=== PATIENT | male | born 1970 | race Caucasian/White ===

== ENCOUNTER → 2023-08-01 15:48 | Outpatient (REF) | payer BC, SELFPAY | LOC: ANHLAB 15:48 | PROVIDERS: PCP Family Medicine; Visit Provider Plastic Surgery | DX: D48.5 Neoplasm of uncertain behavior of skin (principal) | CPT/HCPCS: 88305; 88342 ==

== ENCOUNTER 2024-10-01 07:35 | Observation (INO) | payer BC, OTHER, SELFPAY ==
[2024-10-01] VITALS (31 sets, daily range): BP systolic 88–125; BP diastolic 50–79; PULSE 57–99; RESP 12–29; TEMP 35.8–38; O2SAT 92–100; BMI 34.0
--- NOTE | ~2024-10-01 | CT_ITS ---
EXAMINATION: CT abdomen pelvis w con DATE: 10/01/2024 11:01 INDICATION: Right lower quadrant pain TECHNIQUE: Computed tomography (CT) of the abdomen and pelvis was performed with 100 cc Omnipaque 350 intravenous contrast. The dose-length product was 983.64 mGy-cm. Automated exposure control and iter ative reconstruction technique were employed. COMPARISON: None. FINDINGS: There is dependent atelectasis. Heart size normal. No significant pleural or pericardial ef fusion. Fatty infiltration of the liver. The spleen, pancreas, adrenal glands and kidneys are unremar kable. There is acute uncomplicated appendicitis. Appendix measures approximately 1.8 cm transversely at the tip. There is moderate surrounding phlegmonous change. No evidence for abscess. Nonobstructiv e bowel gas pattern. No free air or free fluid. No acute osseous abnormality. Moderate lower thoracic and lumbar spondylosis. IMPRESSION: 1. Acute uncomplicated appendicitis. Reviewed, dictated and finalized at location A.
--- OUTSIDE RECORDS SUMMARY | 2024-10-01 07:39 | XMS_ITS | Encounter Summary ---
Author Name [facility] [facility] [place] Address [address] [place] [address] Care Team Providers Care Employment Case Manager Name Role Phone BRISA ANN Primary Care Provider [facility] Insurance Providers: All historical and current Section Date Range: From patient's date of to the date document was created. This section includes the names of all active insurance providers for the patient. Insurance Provider Type of Coverage Plan Name Start of Policy Coverage End of Policy Coverage Group Number Member ID Insurance Provider's Telephone Number Policy Ferris's Name Patient's Relationship to Policy Ferris [place] PREFERRED PROVIDER ORGANIZAT [place] ([place]O) STATE [facility] Aug 29, 2023 [id number] [phone] REGINALD PEACE PATIENT ANTHEM [place] PREFERRED PROVIDER ORGANIZAT ION (PPO) STATE OF [facility] Aug 29, 2023 [id number] [phone] REGINALD PEACE PATIENT ANTHE[place] PREFERRED PROVIDER ORGANIZAT ION (PPO) STATE OF [facility] Aug 29, 2023 [id number] [phone] REGINALD PEACE PATIENT [place] PREFERRED PROVIDER ORGANIZAT ION (PPO) [facility] Aug 29, 2023 [id number] [phone] REGINALD PEACE PATIENT [place] ([id number])RX PRESCRIPT ION STATE OF [place] Aug 29, 2023 [id number] [phone] REGINALD PEACE PATIENT Selected Encounter This section includes the information on record at [place] for the Encounter. Date/Time Encounter Type Encounter Description Reason Provider Source Jan 18, 2024 03:30 PM OFFICE O/P EST MOD 30 MIN PRIMARY CARE/MEDICINE ICD-10-CM F51.5 Nightmare disorder BRISA ANN [facility] Encounter Template Text not used by [place] Assessments - Encounter Diagnoses This section includes the primary and secondary diagnoses documented for the Encounter. Date/Time Primary/Secondary Diagnosis Diagnosis Name Provider Source Feb 01, 2024 12:28 PM PRIMARY Nightmare disorder [facility] Feb 01, 2024 12:28 PM SECONDARY Other male erectile dysfunction [facility] Feb 01, 2024 12:28 PM SECONDARY Rash and other nonspecific skin eruption [facility] Plan of Treatment: Future Appointments (+ 6 months) and Future Tests (+/- 45 days) The Plan of Treatment section includes future care activities for the patient from all [place] treatmentfacilities. This section includes future appointments and future orders which are active, pending or scheduled. Future Appointments This section includes appointments that were scheduled to occur 6 months from the date of the Encounter, up to a maximum of 20 appointments. The data comes from all [place] treatment facilities. Appointment Date/Time Appointment Type Appointme nt Facility Name Feb 08, 2024 11:00 AM AMBULATORY - PSYCHIATRY [facility] Mar 15, 2024 11:00 AM AMBULATORY - PS[facility]CH[facility]ATRY [facility] Apr 04, 2024 10:30 AM AMBULATORY - MEDICINE [facility] May 01, 2024 02:00 PM AMBULATORY - PSYCHIATRY [facility] May 10, 2024 02:00 PM AMBULATORY - PSYCHIATRY [facility] May 30, 2024 08:00 AM AMBULATORY - PSYCHIATRY [facility] Jun 11, 2024 10:00 AM AMBULATORY - MEDICINE [facility] Jun 18, 2024 09:00 AM AMBULATORY - REHAB MEDICIN E [facility] Vital Signs: All taken on the encounter date This section contains inpatient and outpatient Vital Signs collected on the date of the Encounter. Date/Time Temperature Pulse Blood Pressure Respiratory Rate SP02 Pain Height Weight Body Mass Index Source Jan 18, 2024 03:32 PM 98.9 88 128/76 20 95 0 70 252 36 [facility] Social History: Smoking Status (Most current) and Tobacco Use (All prior to encounter date) This section includes the most current, and the historical, smoking and tobacco- related health factors from the [place] facility where the Encounter took place. Current Smoking Status This section includes the most current smoking, or tobacco-related health factor, from the [place] facility where the Encounter took place. Date/Time Current Smoking Status Comment Facil ity Aug 23, 2023 01:00 PM VA-TOBACCO USER EVERY DAY [facility] Tobacco Use History This section includes a history of the smoking, or tobacco-related health factors, that were collected on or before the date of the Encounter. The data comes from the [place] facility where the Encounter took place. Date/Time Smoking Status/Tobacco Use Comment F acility Aug 23, 2023 01:00 PM VA-TOBACCO USE 30 YEARS OR MORE [facility] Aug 23, 2023 01:00 PM VA-TOBACCO USE ADVICE [facility] Aug 23, 2023 01:00 PM VA-TOBACCO USE SCHOOL PSYCHOLOGY SPECIALIST NO [facility] Aug 23, 2023 01:00 PM VA-TOBACCO USE MED NO [facility] Aug 23, 2023 01:00 PM VA-TOBACCO USER EVERY DAY [facility] Encounter Notes: All associated encounter notes This section contains the clinical notes associated to the Encounter. Date/Time Encounter Note(s) Provider Source Jan 18, 2024 03:41 PM PRIMARY CARE NOTE: LOCAL TITLE: PRIMARY CARE PROVIDER ESTABLISHED VISIT ST STANDARD TITLE: PRIMARY CARE NOTE DATE OF NOTE: JAN 18, 2024@15:41 ENTRY DATE: JAN 18, 2024@15:41:34 AUTHOR: BRISA ANN EXP COSIGNER: URGENCY: STATUS: COMPLETED ESTABLISHED PATIENT [id number]: HPI: Follow up. Patient would like something for erectile dysfunction. Has been on viagra and cialis in the past, thinks cialis worked better. Recently met a woman he may want to become sexually active with. Denies any CP/SOB with exertion. Denies any history of heart problems. He has had two episodes in the last month where he scratches his right thigh while he sleeps. He will wake up and there are scratches on his thigh and blood under the fingernails on his right hand. First episode 1 month ago and then again 2 weeks ago. It is healing ok. He denies any rash/itching/lesion in this area. Both times it happened he had a nightmare. Has about 3-4 nightmares a month, they are usually of his being trapped (either tied down or being forced to go back to [place] and dying). He has never tried medication for it. He has gotten his CPAP and was also put on iron supplement by sleep doctor for RLS. SOURCE OF HISTORY: Patient PAST MEDICAL HISTORY: No active Problems to list. FAMILY HISTORY: Mom of ALS in 1994. Maternal cousin also had ALS. Dad - alive and healthy. Brother - tonsil cancer. SOCIAL HISTORY: NICOTINE/TOBACCO: Smokes 1/2 ppd. Started at age 16. Not ready to quit at the moment. ILLICIT DRUGS: denies ALCOHOL: drinks 2 times/week. Usually 7-8 beers. SCREENINGS: Colonoscopy - tells me normal 5 years ago. He will send records. Thinks it was done at [facility] in [place], [place]. HEP C - will check with labs HIV - will check with labs PSA - will check with labs Low dose CT - will discuss at next visit AAA screening - will start at 63 VACCINATIONS Tetanus - Tells me he is UTD Flu - pt declines COVID - pt declines Pneumonia - with smoking will give one today Shingles - he wants to check records first ALLERGIES: Patient has answered NKA ALLERGY REVIEW: Allergy list reviewed and remains current. MEDICATIONS: Active and Recently Outpatient Medications (excluding Supplies): Gabapentin 300 mg daily MEDICATION RECONCILIATION: I have reviewed the patient's medication list with the patient and/or his/her care-quill reamer. Handwritten corrections, additions and/or deletions were made to the list. Corrected Outpatient Medication List was provided to the patient/caregiver. REVIEW OF SYSTEMS: negative except as mentioned in HPI PHYSICAL EXAMINATION: General appearance: VITALS (most recent, as listed in the electronic record): Temperature: 98.9 F [37.2 C] (01/18/2024 15:32) BP: 128/76 (01/18/2024 15:32) Pulse: 88 (01/18/2024 15:32) Resp: 20 (01/18/2024 15:32) PulsOx: 95% (01/18/2024 15:32) Pain: 0 (01/18/2024 15:32) Weight: Measurement DT WEIGHT LB(KG)[BMI] 01/18/2024 15:32 252(114.31)[36*] 08/23/2023 12:55 241(109.32)[35*] Ears, Nose, Mouth, Throat: Normal. Eye: Normal sclera Normal PERRLA Cardiovascular: S1 S2 Nl. Respiratory: Clear ABD/GI: Normal. Extremities: Right third finger with slight swelling along medial part of cuticle. No surrounding erythema. No discharge. Normal motion of finger. No foreign bodies palpated. Left fifth digit with normal flexion, but can't straighten completely in extension. Skin: Healing incision right upper shoulder without any signs of infection. ASSESSMENT/PLAN: #Nightmares - will try prazosin for nightmares. Discsused not to take with viagra due to risk of hypotension. He will let me know in a few weeks how this is working for him. #Erectile dysfunction - will try viagra prn. If maximum doses of this don't work we can try a PA for cialis. #Scratching - This sounds like it is related to nightmares. Will have him try wearing longer shorts to protect this area. Could consider wearing gloves as well. RETURN TO CLINIC: prn SUMMARY STATEMENT: Plan of care has been discussed with including expected therapeutic benefits and potential side effects of prescribed medication and treatments. Whippany verbalizes understanding and is in agreement with the plan of care. Patient was instructed to keep all scheduled appointments and contact head tennis coach for any additional problems. /jordana/ BRISA ANN DO STAFF PHYSICIAN Signed: 01/18/2024 16:24 BRISA ANN [facility] Jan 18, 2024 03:35 PM NURSING NOTE: LOCAL TITLE: V15 PACT FACE TO FACE NOTE STL STANDARD TITLE: NURSING NOTE DATE OF NOTE: JAN 18, 2024@15:35 ENTRY DATE: JAN 18, 2024@15:35:32 AUTHOR: JACKY VALENCIA EXP COSIGNER: URGENCY: STATUS: COMPLETED Provider Visit: Patient Identifiers : Full Name Date of Reason for visit: Established Follow-Up Mode of Arrival: Ambulatory Allergy Review: Patient has answered NKA Allergy list reviewed and remains current. Recent Vital Signs: Temperature: 98.9 F [37.2 C] (01/18/2024 15:32) Pulse: 88 (01/18/2024 15:32) Respiration: 20 (01/18/2024 15:32) B/P: 128/76 (01/18/2024 15:32) Pain: 0 (01/18/2024 15:32) Wt: 252 lb [114.31 kg] (01/18/2024 15:32) Ht: 70 in [177.8 cm] (01/18/2024 15:32) BMI: 36.2 POX: 95% (01/18/2024 15:32) Blood sugar glucometer reading: Would you like to discuss any personal problem, family problem, alcohol use, drug use, or a mental or emotional illness? No [facility] ([facility]), please select appointment type: Face to face: Yes- Done Contact provided Primary Care phone number and encouraged to call if any questions or concerns. Review that after hours nurse line [phone] and emergency room are available 20/09 for patient use. Contact verbalized good understanding. /jordana/ JACKY VALENCIA LPN LICENSED PRACTICAL NURSE Signed: 01/18/2024 15:36 JACKY VALENCIA [facility]
--- OUTSIDE RECORDS SUMMARY | 2024-10-01 07:39 | XMS_ITS | Encounter Summary ---
Author Name [facility] Address [address] [place] [address] Care Team Providers Care Crayon Sorting Machine Feeder Name Role Phone BRISA ANN [facility] Insurance Providers: All historical and current [...] IN PREFERRED PROVIDER ORGANIZAT ION (PPO) [facility] Aug 29, 2023 [id number] [phone] REGINALD GOODSON PATIENT ANTHEM [employer] [place] PREFERRED PROVIDER ORGANIZAT ION (PPO) [facility] [place] Aug 29, 2023 [id number] [phone] REGINALD GOODSON PATIENT [place] [employer] [place] PREFERRED PROVIDER ORGANIZAT ION (PPO) [facility] [place] Aug 29, 2023 [id number] [phone] REGINALD GOODSON PATIENT [employer] [place] PREFERRED PROVIDER ORGANIZAT ION (PPO) [facility] Aug 29, 2023 [id number] [phone] REGINALD GOODSON PATIENT [place] ([id number])RX PRESCRIPT ION [facility] Aug 29, 2023 [id number] [phone] REGINALD GOODSON PATIENT Selected Encounter This section includes the information on record at [place] for the Encounter. Date/Time Encounter Type Encounter Description Reason Provider Source Sep 12, 2024 10:00 AM OFFICE O/P EST MOD 30 MIN [facility] - IND ICD-10-CM F43.12 Post-traumatic stress disorder, chronic ZENA SOUZA [facility] Encounter Template Text not used by [place] Assessments - Encounter Diagnoses This section includes the primary and secondary diagnoses documented for the Encounter. Date/Time Primary/Secondary Diagnosis Diagnosis Name Provider Source Sep 12, 2024 10:25 AM PRIMARY Post-traumatic stress disorder, chronic ZENA SOUZA [facility] Plan of Treatment: Future Appointments (+ 6 months) and Future Tests (+/- 45 days) The Plan of Treatment section includes future care activities for the patient from all [place] treatmentfacilities. This section includes future appointments and future orders which are active, pending or scheduled. Future Appointments This section includes appointments that were scheduled to occur 6 months from the date of the Encounter, up to a maximum of 20 appointments. The data comes from all [place] treatment facilities. Appointment Date/Time Appointment Type Appointme nt Facility Name Oct 02, 2024 11:00 AM AMBULATORY - MEDICINE [facility] Oct 30, 2024 08:30 AM AMBUL[facility]ORY - [facility]RY [facility] Social History: Smoking Status (Most current) and Tobacco Use (All prior to encounter date) This section includes the most current, and the historical, smoking and tobacco- related health factors from the [facility] facility where the Encounter took place. Current Smoking Status This section includes the most current smoking, or tobacco-related health factor, from the [place] facility where the Encounter took place. Date/Time Current Smoking Status Comment Facil [facility] Aug 23, 2023 01:00 PM VA-TOBACCO USER EVERY DAY [facility] Tobacco Use History This section includes a history of the smoking, or tobacco-related health factors, that were collected on or before the date of the Encounter. The data comes from the [place] facility where the Encounter took place. Date/Time Smoking Status/Tobacco Use Comment F acility Aug 23, 2023 01:00 PM VA-TOBACCO USE 30 YEARS OR MORE [facility] Aug 23, 2023 01:00 PM VA-TOBACCO USE ADVICE [facility] Aug 23, 2023 01:00 PM VA-TOBACCO USE CONSUMER LOAN MANAGER NO [facility] Aug 23, 2023 01:00 PM VA-TOBACCO USE MED NO [facility] Aug 23, 2023 01:00 PM VA-TOBACCO USER EVERY DAY [facility] Encounter Notes: All associated encounter notes This section contains the clinical notes associated to the Encounter. Date/Time Encounter Note(s) Provider Source Sep 12, 2024 09:58 AM PSYCHIATRY NOTE: LOCAL TITLE: PSYCHIATRY [facility] STANDARD TITLE: PSYCHIATRY NOTE DATE OF NOTE: SEP 12, 2024@09:58 ENTRY DATE: SEP 12, 2024@09:58:53 AUTHOR: ZENA SOUZA COSIGNER: URGENCY: STATUS: COMPLETED PSYCHIATRY PROGRESS NOTE SEP 12, 2024 PITER GOODSON is a 54 year old WHITE MALE presenting for psychiatric follow up appointment. Previous psychiatric notes, medical notes, and medication history reviewed. HPI: PITER GOODSON was last seen on 05/30/24 at which time we adjusted/titrated Wellbutrin 75 mg daily to Wellbutrin XL 150 mg daily for PTSD related sx, and titrated Prazosin 2 mg QHS PRN for nightmares. Ashley presents alone today, reports mood as Ok. He reports good efficacy with Prazosin for nightmares, though notes only modest efficacy with Wellbutrin; amenable to further titration of his dose. Ashley otherwise denies thoughts of self-harm, suicidal ideation, intent/plan to hurt themselves, thoughts of harming others, homicidal ideation or access to poisons or medications. Vet denies access to firearms at this time. Vet denies any recent inpatient psychiatric hospitalizations, suicide attempts, self-mutilation, auditory or visual hallucinations. Vet denies any excessive alcohol consumption, illicit drug use, or smoking. ALLERGIES: Patient has answered NKA MEDICATIONS: Active Outpatient Medications (including Supplies): Active Outpatient Medications Status 1) FLUTICASONE PROP 50MCG 120D NASAL INHL INSTILL 2 SPRAYS IN ACTIVE NOSTRIL(S) ONCE A DAY (MUST BE USED DIRECTED FOR MINIMUM OF 21 DAYS TO PROVIDE ADEQUATE BENEFITS) Indication: FOR RHINITIS 2) GABAPENTIN 300MG CAP TAKE ONE CAPSULE BY MOUTH ONCE A DAY ACTIVE Indication: FOR NERVE PAIN 3) PRAZOSIN HCL 2MG CAP TAKE ONE CAPSULE BY MOUTH AT BEDTIME ACTIVE NEEDED MAY CAUSE DIZZINESS OR DROWSINESS. Indication: FOR NIGHTMARES 4) SILDENAFIL CITRATE 100MG TAB TAKE ONE-HALF TABLET BY MOUTH ACTIVE (S) ONE HOUR PRIOR TO SEXUAL ACTIVITY NEEDED - LIMIT 6 DOSES PER 30 DAYS Indication: FOR ERECTILE DYSFUNCTION No medications found. Discussed, reviewed, and updated current medication list with . 1) Exposure to potentially hazardous substance 2) Sleep apnea 3) Allergic rhinitis 4) Tinnitus 5) Hyperlipidemia 6) Nightmares 7) Tobacco use 8) Restless legs 9) Depression 10) Chronic post-traumatic stress disorder PHYSICAL EXAM: Review of systems: Negative except where noted above. VITAL SIGNS: Height: 70 in [177.8 cm] (01/18/2024 15:32) Weight: 249.6 lb [113.22 kg] (04/04/2024 10:20) BMI: 35.9 Temperature: 98.4 F [36.9 C] (04/04/2024 10:20) Blood Pressure: 126/78 (04/04/2024 10:20) Pulse: 62 (04/04/2024 10:20) Respirations: 18 (04/04/2024 10:20) Gen: no acute distress Resp: Normal Effort Extremities: No gross abnormalities Neuro: Normal Gait and station Skin: No obvious rashes or defects MENTAL STATUS EXAM: Appearance: White male, well kempt Behavior towards examiner: cooperative Eye contact: good Speech: normal in tone, volume, rate and prosody Psychomotor: no psychomotor agitation or retardation Mood: ok Affect: euthymic, congruent, and appropriate Thought Process: logical, linear, goal-directed Thought Content: denies suicidal or homicidal ideations, no clear delusions elicited or endorsed Perception: denies auditory or visual hallucinations, not seen RTIS Cognition: alert and oriented x 3 Fund of knowledge: average Insight: good Judgement: good LAB RESULTS: Complete Blood Count WBC: 6.4 10*3/uL (08/23/23 14:26) RBC: 4.68 10*6/uL (08/23/23 14:26) HGB: HGB 15.3 g/dL 08/23/2023 14:26 HCT: 44.4 % (08/23/23 14:26) PLT: PLT 219 10*3/uL 08/23/2023 14:26 Sed Rate ESR: No SED RAT (STL-PB) data found Coagulation parameters PT: ____ INR: ____ PTT: No PTT EO data found Comprehensive Metabolic Panel SODIUM 140 mEq/L 08/23/2023 14:26 POTASSIUM 4.1 mEq/L 08/23/2023 14:26 CHLORIDE 103 mEq/L 08/23/2023 14:26 UREA NITROGEN 9.1 mg/dL 08/23/2023 14:26 CREATININE 1.09 mg/dL 08/23/2023 14:26 CALCIUM 9.3 mg/dL 08/23/2023 14:26 PROTEIN 7.6 g/dL 08/23/2023 14:26 ALBUMIN 4.4 g/dL 08/23/2023 14:26 ALKALINE PHOSPHATASE 97 U/L 08/23/2023 14:26 ALT/SGPT 29 U/L 08/23/2023 14:26 AST/SGOT 33 U/L 08/23/2023 14:26 TOTAL BILIRUBIN 0.7 mg/dL 08/23/2023 14:26 CARBON DIOXIDE 25 mEq/L 08/23/2023 14:26 GLUCOSE 94 mg/dL 08/23/2023 14:26 EGFR (CKD-EPI 2020) 80.15 08/23/2023 14:26 Lipid Panel TRIGLYCERIDE 99 mg/dL 08/23/2023 14:26 CHOLESTEROL 220 H mg/dL 08/23/2023 14:26 HDL(New) 71 mg/dL 08/23/2023 14:26 CALCULATED LDL 129 mg/dL 08/23/2023 14:26 Accuchecks (last 6) No GLUCOSE,BLOOD-poct (STL) data found Other pertinent labs HgbA1c: HGA1C 5.6 % 08/23/2023 14:26 TSH: TSH 1.216 uIU/mL 08/23/2023 14:26 B12: No B12 EO data found MMA: Folate: No FOLATE (STL-MA);FOLATE (PB);FOLATE (DC 12-05);FOLATE (DC 12/05) data found Vitamin D:No VITAMIN D EO data found Ammonia: CPK: RF: No data available for: RHEUMATOID FACTOR (STL) RADAMES:0 RPR: ____ HIV: No HIV Antibody (STL);HIV COMBO (STL-MA) data found HCV: HEP C Ab HCV Ab (STL) Nonreactive S/CO 08/23/2023 14:26 Dilantin: ____ Tegretol: No CARBAMAZEPINE EO data found Valproate: Urinalysis No URINALYSIS EO data found Urine Drug Screen No data available DSM V DIAGNOSIS: CPTSD ASSESSMENT: Mr. Goodson is a 53 y/o White male, domiciled, employed, with a past psychiatic history of CPTSD. On evaluation today, the presents with signs and symptoms consistent with the CPTSD as per DSM-V criteria. Vet reports good efficacy with Prazosin for nightmares, though notes only modest efficacy with Wellbutrin; amenable to further titration of his dose. INTERVENTIONS: 1. CPTSD - Titrate Wellbutrin XL 150 mg daily to 300 mg daily for PTSD related sx - Continue Prazosin 2 mg QHS PRN for nightmares - Advised Vet to continue f/u with [facility] for therapy related to his PTSD RISK ASSESSMENT: The Vet continues to be at an increased risk of suicide overall when compared to the general population due to risk factors of psychiatric diagnosis, psychosocial stressors, and access to firearms. However at this time they are at a low acute and chronic suicide risk due to protective factors such as forward, goal orientated thinking, the gun being locked away, denial of suicidal or homicidal ideation, stabilization on medicaitons and family support. At this time the Vet is not at an acute, imminent risk of harm to themselves or others that would require inpatient hospitalization. Discussed R/A/B/SE of current medications as well as not medicating, to which the Vet voiced undertanding of the current plan and consented to the treatment as outlined. INFORMED CONSENT: The diagnosis, rationale for proposed treatment, and treatment plan was discussed with the patient, who was able to express understanding of the nature of the disease, the recommended treatment, the risks and benefits, as well as the risks and benefits of alternative treatments, including no treatment. The patient was able to express appreciation of the need for treatment, and would like to proceed. The patient was able to weigh options and describe pros and cons of each option, demonstrating reasoning. Finally, the patient was able to express a choice and agrees to the treatment plan. TIME SPENT: 30 min RTC: in 4 weeks INSTRUCTIONS GIVEN TO PATIENT/FAMILY: Report medication side effects promptly. No alcohol/illicit drug use with medication. Exercise caution with driving/use of machinery. Monitor for sedation with use of the medication and if needed avoid use in situations where decreased level of alertness could potentially be dangerous. If symptoms get worse, call clinic or Emergency Room as appropriate. Provided orientation to the clinic and ways to access crisis/emergency care. EDUCATION: Educated to be compliant and encouraged to take the medication (s) daily; to continue to take even if the feels better; and to not stop taking medications without checking with the healthcare provider; and to call us when questions arise about medications. The was counseled to keep follow-up appointments. We discussed alternatives to treatment, including no treatment, as well as risks, benefits, side effects, including more serious/life-threatening side effects such as SJS/TENS (that this can be life-threatening and/or permanently disfiguring), QTc related arrhythmias, and to present to ER if s/s of these more serious side effects occur. The voiced understanding and consented to treatment as outlined. We discussed crisis resources in detail. The was informed to call [phone] for ROUTINE questions/concerns, to call [phone]) and press 1 for URGENT or EMERGENT situations or to call 911 or present to the nearest ER. Also, the the was advised that the [facility] ER is available to the pt. on a 20/09 basis if needed. /jordana/ Zena Souza MD Staff Psychiatrist [facility] [place] Signed: 09/12/2024 10:25 ZENA SOUZA [facility]
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
--- OUTSIDE RECORDS SUMMARY | 2024-10-01 07:39 | XMS_ITS | Encounter Summary ---
Author Name [facility] [place] [facility] [place] [facility] [place] [facility] [place] Address [address] [place] [address] Care Team Providers Care Wastewater Supervisor Name Role Phone BRISA ANN [facility] Insurance Providers: All historical and [...] IN PREFERRED PROVIDER ORGANIZAT ION (PPO) [facility] Aug 29, 2023 [id number] [phone] REGINALD GOODSON PATIENT AN[place] [employer] [place] PREFERRED PROVIDER ORGANIZAT ION (PPO) [facility] Aug 29, 2023 [id number] [phone] REGINALD GOODSON PATIENT [place] [employer] [place] PREFERRED PROVIDER ORGANIZAT ION (PPO) [facility] Aug 29, 2023 [id number] [phone] REGINALD GOODSON PATIENT [employer] [place] PREFERRED PROVIDER ORGANIZAT ION (PPO) STATE [facility] Aug 29, 2023 [id number] [phone] REGINALD GOODSON PATIENT [place] ([id number])RX PRESCRIPT ION [facility] Aug 29, 2023 [id number] [phone] REGINALD GOODSON PATIENT Selected Encounter This section includes the information on record at [place] for the Encounter. Date/Time Encounter Type Encounter Description Reason Provider Source May 30, 2024 08:00 AM OFFICE O/P EST MOD 30 [facility] - IND ICD-10-CM F43.12 Post-traumatic stress disorder, chronic ZENA SOUZA IHDilma Encounter Template Text not used by [place] Assessments - Encounter Diagnoses This section includes the primary and secondary diagnoses documented for the Encounter. Date/Time Primary/Secondary Diagnosis Diagnosis Name Provider Source May 30, 2024 08:29 AM PRIMARY Post-traumatic stress disorder, chronic ZENA SOUZA [facility] Plan of Treatment: Future Appointments (+ 6 months) and Future Tests (+/- 45 days) The Plan of Treatment section includes future care activities for the patient from all [place] treatmentfacilities. This section includes future appointments and future orders which are active, pending or scheduled. Future Appointments This section includes appointments that were scheduled to occur 6 months from the date of the Encounter, up to a maximum of 20 appointments. The data comes from all [place] treatment facilities. Appointment Date/Time Appointment Type Appointme nt Facility Name Jun 11, 2024 10:00 AM AMBULATORY - MEDICINE [facility] Jun 18, 2024 09:00 AM [facility] Sep 12, 2024 10:00 AM [facility] Oct 02, 2024 11:00 AM [facility] - MEDICINE [facility] Oct 30, 2024 08:30 AM AMBULATORY - PS[facility]CHIATRY [facility] Active, Pending, and Scheduled Orders This section includes a listing of several types of active, pending, and scheduled orders, including clinic medications orders, diagnostic test orders, procedure orders and consult orders; where the start date of the order is 45 days before the date of the Encounter or 45 days after the date of theEncounter. The data comes from all [place] treatment facilities. Test Date/Time Test Type Test Details Facility Name Apr 23, 2024 12:00 AM Laboratory - Chemi stry Order OCCULT BLOOD FIT X1 SCREEN (MFP ONLY) STOOL FECES SP [facility] Lab Results: +/- 30 days of the encounter This section includes the Chemistry and Hematology Lab Results on record with [place] for the patient. Radiology Reports and Pathology Reports are provided separately, in subsequent sections. Lab Results This section contains the Chemistry/Hematology Results that were resulted 30 days before or 30 daysafter the date of the Encounter. Date/Time Source Result Type Result - Unit Interpretation Reference Range Specimen Type Comment May 01, 2024 08:27 AM [facility] TESTOSTERONE, FREE PANEL SERUM Specimen Type: SERUM Comment: For additional information, please refer to http://education. Qwbcg/faq/ TotalTestosterone [id number] (This link is being provided for informational/ educational purposes only.) This test was developed and its analytical performance characteristics have been determined by [employer] [place], [place]. It has not been cleared or approved by the U.S. Food and Drug Administration. This assay has been validated pursuant to the CLIA regulations and is used for clinical purposes. Test Performed by [employer] [facility], [address] [place] [address] Dewey Rhoades M.D., Ph.D., Director of Laboratories , CLIA [id number] Ordering Provider: BRISA ANN Report Released Date/Time: Apr 04, 2024 11:00 AM Reporting Lab: [facility] [address] [facility] [id number] Performing Lab: [facility] [id number] [facility] TESTOSTERONE, TOTAL 426 ng/dL 250-1100 ALBUMIN (PB-sendout) 4.1 g/dL 3.6-5.1 TESTOSTERONE,FREE (sendout) 47.8 pg/mL 4 6.0-224.0 TESTOSTERONE,BIOAVAILABLE (MA-PB-SO 89.9 ng/dL L 110.0-575.0 SEX HORMONE BINDING GLOBULIN 41 nmol/L 1 0-50 Social History: Smoking Status (Most current) and Tobacco Use (All prior to encounter date) This section includes the most current, and the historical, smoking and tobacco- related health factors from the [facility] where the Encounter took place. Current Smoking Status This section includes the most current smoking, or tobacco-related health factor, from the [place] facility where the Encounter took place. Date/Time Current Smoking Status Comment Facil ity Aug 23, 2023 01:00 PM [place]-TOBACCO USER EVERY DAY [facility] Tobacco Use History This section includes a history of the smoking, or tobacco-related health factors, that were collected on or before the date of the Encounter. The data comes from the [facility] where the Encounter took place. 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 Date/Time Encounter Note(s) Provider Source May 30, 2024 08:11 AM PSYCHIATRY NOTE: LOCAL TITLE: PSYCHIATRY [facility] STANDARD TITLE: PSYCHIATRY NOTE DATE OF NOTE: MAY 30, 2024@08:11 ENTRY DATE: MAY 30, 2024@08:11:48 AUTHOR: ZENA SOUZA COSIGNER: URGENCY: STATUS: COMPLETED PSYCHIATRY PROGRESS NOTE MAY 30, 2024 [place] [facility]: Consent: verbally consents to a clinical video telehealth follow-up appointment. Address: [address] [place] [id number] Phone number: Survey: patient alone Lock: The virtual conference room was locked. PITER GOODSON is a 54 year old WHITE MALE presenting for psychiatric follow up appointment. Previous psychiatric notes, medical notes, and medication history reviewed. HPI: PITER GOODSON was last seen on 05/01/24 at which time we started Wellbutrin 75 mg daily for PTSD related sx, and titrated Prazosin 1 mg QHS to 2 mg QHS PRN for nightmares. Vet presents alone today, reports mood as Good. He reports good efficacy with Prazosin for nightmares, though notes only modest efficacy with Wellbutrin; amenable to further titration of his dose. Vet otherwise denies thoughts of self-harm, suicidal ideation, [...] (including Supplies): Active Outpatient Medications Status 1) BUPROPION HCL 75MG TAB TAKE ONE TABLET BY MOUTH EVERY ACTIVE MORNING Indication: FOR DEPRESSION 2) FLUTICASONE PROP 50MCG 120D NASAL INHL INSTILL 2 SPRAYS IN ACTIVE NOSTRIL(S) ONCE A DAY (MUST BE USED DIRECTED FOR MINIMUM OF 21 DAYS TO PROVIDE ADEQUATE BENEFITS) Indication: FOR RHINITIS 3) GABAPENTIN 300MG CAP TAKE ONE CAPSULE BY MOUTH ONCE A DAY ACTIVE Indication: FOR NERVE PAIN 4) PRAZOSIN HCL 2MG CAP TAKE ONE CAPSULE BY MOUTH AT BEDTIME ACTIVE NEEDED MAY CAUSE DIZZINESS OR DROWSINESS. Indication: FOR NIGHTMARES 5) SILDENAFIL CITRATE 100MG TAB TAKE ONE-HALF TABLET BY MOUTH ACTIVE ONE HOUR PRIOR TO SEXUAL ACTIVITY NEEDED - LIMIT 6 DOSES PER 30 DAYS Indication: FOR ERECTILE DYSFUNCTION No medications found. Discussed, reviewed, and updated current medication list with . 1) Exposure to potentially hazardous substance 2) Sleep apnea 3) Allergic rhinitis 4) Tinnitus 5) Hyperlipidemia 6) Nightmares 7) Tobacco use 8) Restless legs 9) Depression PHYSICAL EXAM: Review of systems: Negative except [...] Psychomotor: no psychomotor agitation or retardation Mood: good Affect: euthymic, congruent, and appropriate Thought Process: [...] history of CPTSD. On evaluation today, the [place] presents with signs and symptoms consistent with the CPTSD as per DSM-V criteria. Vet reports good efficacy with Prazosin for nightmares, though notes only modest efficacy with Wellbutrin; amenable to further titration of his dose. INTERVENTIONS: 1. CPTSD - Adjust/titrate Wellbutrin 75 mg daily to Wellbutrin XL 150 mg daily for PTSD related sx - [...] in detail. The was informed to call [phone] for ROUTINE questions/concerns, to call [facility] ([phone]) and press 1 for URGENT or EMERGENT situations or to call 911 or present to the nearest ER. Also, the the was advised that the [facility] ER is available to the pt. on a / basis if needed. /jordana/ Zena Souza MD Staff Psychiatrist [facility] Signed: 05/30/2024 08:29 ZENA SOUZA [facility]
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
--- OUTSIDE RECORDS SUMMARY | 2024-10-01 07:39 | XMS_ITS | Encounter Summary ---
Author Name [facility] [facility] [place] Address [address] [place] [address] Care Team Providers Care Flight Communications Operator Name Role Phone BRISA ANN Primary Care Provider [facility] dilma Insurance Providers: All historical and [...] PREFERRED PROVIDER ORGANIZAT ION (PPO) [facility] Aug 29, 2023 [id number] [phone] REGINALD PEACE PATIENT [employer] [place] PREFERRED PROVIDER ORGANIZAT ION (PPO) [place] Aug 29, 2023 [id number] [phone] REGINALD PEACE PATIENT [employer] [place] PREFERRED PROVIDER ORGANIZAT ION (PPO) [place] Aug 29, 2023 [id number] [phone] REGINALD PEACE PATIENT [place] PREFERRED PROVIDER ORGANIZAT ION (PPO) STATE [facility] [place] Aug 29, 2023 [id number] [phone] REGINALD PEACE PATIENT [place] ([id number])RX PRESCRIPT ION STATE [facility] Aug 29, 2023 [id number] [phone] REGINALD PEACE PATIENT Selected Encounter This section includes the information on record at [facility] for the Encounter. Date/Time Encounter Type Encounter Description Reason Provider Source Jun 18, 2024 09:00 AM EDU&TRN PT SLF-MGMT NQHP 2-4 RECREATION THERAPY SERVICE ICD-10-CM Z02.5 Encounter for examination for participation in sport MADELINE LATIF Dilma Encounter Template Text not used by [facility] Assessments - Encounter Diagnoses This section includes the primary and secondary diagnoses documented for the Encounter. Date/Time Primary/Secondary Diagnosis Diagnosis Name Provider Source Jun 18, 2024 11:14 AM PRIMARY Encounter for examination for participation in sport MADELINE LATIF [facility] Plan of Treatment: Future Appointments (+ 6 months) and Future Tests (+/- 45 days) The Plan of Treatment section includes future care activities for the patient from all [facility] treatmentfacilities. This section includes future appointments and future orders which are active, pending or scheduled. Future Appointments This section includes appointments that were scheduled to occur 6 months from the date of the Encounter, up to a maximum of 20 appointments. The data comes from all [place] treatment facilities. Appointment Date/Time Appointment Type Appointme Facility Name Sep 12, 2024 10:00 AM AMBULATORY - PS[facility] Oct 02, 2024 11:00 AM [facility] Oct 30, 2024 08:30 AM AMB[facility] - PS[facility]RY [facility] Social History: Smoking Status (Most current) and Tobacco Use (All prior to encounter date) This section includes the most current, and the historical, smoking and tobacco- related health factors from the [facility] facility where the Encounter took place. Current Smoking Status This section includes the most current smoking, or tobacco-related health factor, from the [facility] facility where the Encounter took place. Date/Time Current Smoking Status Comment Facil ity Aug 23, 2023 01:00 PM VA-TOBACCO USER EVERY DAY [facility] Tobacco Use History This section includes a history of the smoking, or tobacco-related health factors, that were collected on or before the date of the Encounter. The data comes from the [place] facility where the Encounter took place. Date/Time Smoking Status/Tobacco Use Comment F acility Aug 23, 2023 01:00 PM VA-TOBACCO USE [address] [facility] Aug 23, 2023 01:00 PM VA-TOBACCO USE ADVICE 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 Aug 23, 2023 01:00 PM VA-TOBACCO USE MED NO [facility] Aug 23, 2023 01:00 PM VA-TOBACCO USER EVERY DAY [facility] Encounter Notes: All associated encounter notes This section contains the clinical notes associated to the Encounter. Date/Time Encounter Note(s) Provider Source Jun 18, 2024 09:00 AM RECREATIONAL THERA PY NOTE: LOCAL TITLE: RT PROGRESS [facility] STANDARD TITLE: RECREATIONAL THERAPY NOTE DATE OF NOTE: JUN 18, 2024@09:00 ENTRY DATE: JUN 18, 2024@11:08:30 AUTHOR: MADELINE LATIF COSIGNER: URGENCY: STATUS: COMPLETED Date: 06/18/24 Tosha was seen today by recreation therapist for 60 minutes. was prompt, pleasant and cooperative and took part of a group orientation. appeared to be at ease in conversation with RT during our time together. was given a tour of the recreation therapy facilities to include the gym, pool, bowling alley and billiards room. [place] was amazed by the facilities and could not believe they were here for them. was also told about community programming including the [employer] which does hunting and fishing trips. [employer] which does fly fishing. [employer] which does guitar class. Scuba diving through [employer]. [employer] [facility] in [facility] (fly fishing, wood working and photography), [employer] kayaking and the various golf leagues around the [place] and [facility] area. [place] was also told that RT will offer e-carlos and virtual reality in the winter time months. [place]'s interested in RT programming was provided. An individual evaluation was conducted after the group orientation. /jordana/ Madeline Latif Certified Reliability Technologist Signed: 06/18/2024 11:14 MADELINE LATIF [facility]
--- OUTSIDE RECORDS SUMMARY | 2024-10-01 07:39 | XMS_ITS | Encounter Summary ---
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 Role Phone BRISA ANN Primary Care Provider Unavailabl dilma Insurance Providers: All historical and current [...] PREFERRED PROVIDER ORGANIZAT ION (PPO) STATE OF [facility] Aug 29, 2023 [id number] [phone] REGINALD PEACE PATIENT ANTHEM [employer] [place] PREFERRED PROVIDER ORGANIZAT ION (PPO) STATE OF [facility] Aug 29, 2023 [id number] [phone] REGINALD PEACE PATIENT ANTHEM [employer] [place] PREFERRED PROVIDER ORGANIZAT ION (PPO) STATE OF [facility] Aug 29, 2023 [id number] [phone] REGINALD PEACE PATIENT [place] PREFERRED PROVIDER ORGANIZAT ION (PPO) STATE OF [facility] Aug 29, 2023 [id number] [phone] REGINALD PEACE PATIENT [place] ([id number])RX PRESCRIPT ION [place] OF [place] Aug 29, 2023 [id number] [phone] REGINALD PEACE PATIENT Selected Encounter This section includes the information on record at [place] for the Encounter. Date/Time Encounter Type Encounter Description Reason Provider Source May 10, 2024 02:00 PM PSYCH DIAGNOSTIC EVALUATION PTSD OUTPT RES SPEC PROG INDIV ICD-10-CM F32.89 Other specified depressive episodes ANNA BENÍTEZ [facility] Encounter Template Text not used by [place] Assessments - Encounter Diagnoses This section includes the primary and secondary diagnoses documented for the Encounter. Date/Time Primary/Secondary Diagnosis Diagnosis Name Provider Source May 10, 2024 02:47 PM PRIMARY Other specified depressive episodes ANNA BENÍTEZ [facility] May 10, 2024 02:47 PM SECONDARY Insomnia, unspecified ANNA BENÍTEZ [facility] Plan of Treatment: Future Appointments (+ 6 months) and Future Tests (+/- 45 days) The Plan of Treatment section includes future care activities for the patient from all [place] treatmentfacarteret health careities. This section includes future appointments and future orders which are active, pending or scheduled. Future Appointments This section includes appointments that were scheduled to occur 6 months from the date of the Encounter, up to a maximum of 20 appointments. The data comes from all [place] treatment facilities. Appointment Date/Time Appointment Type Appointme nt Facility Name May 30, 2024 08:00 AM [facility] Jun 11, 2024 10:00 AM AMBULATORY - MEDICINE [facility] Jun 18, 2024 09:00 AM AMBULATORY - REHAB MEDICIN E [facility] Sep 12, 2024 10:00 AM AMBULATORY - PSYCHIATRY [facility] Oct 02, 2024 11:00 AM AMBULATORY - MEDICINE [facility] Oct 30, 2024 08:30 AM AMBULATORY - PSYCHIATRY [facility] Active, Pending, and Scheduled Orders This section includes a listing of several types of active, pending, and scheduled orders, including clinic medications orders, diagnostic test orders, procedure orders and consult orders; where the start date of the order is 45 days before the date of the Encounter or 45 days after the date of theEncounter. The data comes from all [place] treatment facilities. Test Date/Time Test Type Test Details Facility Name Apr 23, 2024 12:00 AM Laboratory - Chemi stry Order OCCULT BLOOD FIT X1 SCREEN (MFP ONLY) STOOL FECES SP [facility] Lab Results: +/- 30 days of the encounter This section includes the Chemistry and Hematology Lab Results on record with [place] for the patient. Radiology Reports and Pathology Reports are provided separately, in subsequent sections. Lab Results This section contains the Chemistry/Hematology Results that were resulted 30 days before or 30 daysafter the date of the Encounter. Date/Time Source Result Type Result - Unit Interpretation Reference Range Specimen Type Comment May 01, 2024 08:27 AM [facility] TESTOSTERONE, FREE PANEL SERUM Specimen Type: SERUM Comment: For additional information, please refer to http://education. [employer]/faq/ TotalTestosterone [id number] (This link is being provided for informational/ educational purposes only.) This test was developed and its analytical performance characteristics have been determined by [employer] [place], [place]. It has not been cleared or approved by the U.S. Food and Drug Administration. This assay has been validated pursuant to the CLIA regulations and is used for clinical purposes. Test Performed by [facility], [facility], [address] [place], [place] Dewey Rhoades M.D., Ph.D., Director of Laboratories , CLIA [id number] Ordering Provider: BRISA ANN Report Released Date/Time: Apr 04, 2024 11:00 AM Reporting Lab: [facility] [address] [facility] [id number] Performing Lab: [facility] [address] [facility] TESTOSTERONE, TOTAL 426 ng/dL 250-1100 ALBUMIN (PB-sendout) 4.1 g/dL 3.6-5.1 TESTOSTERONE,FREE (sendout) 47.8 pg/mL 4 6.0-224.0 TESTOSTERONE,BIOAVAILABLE (MA-PB-SO 89.9 ng/dL L 110.0-575.0 SEX HORMONE BINDING GLOBULIN 41 nmol/L 1 0-50 Social History: Smoking Status (Most current) and Tobacco Use (All prior to encounter date) This section includes the most current, and the historical, smoking and tobacco- related health factors from the [place] facility where the Encounter took place. Current Smoking Status This section includes the most current smoking, or tobacco-related health factor, from the [place] facility where the Encounter took place. Date/Time Current Smoking Status Comment Facil ity Aug 23, 2023 01:00 PM [place]-TOBACCO USER EVERY DAY [facility] Tobacco Use History This section includes a history of the smoking, or tobacco-related health factors, that were collected on or before the date of the Encounter. The data comes from the [facility] where the Encounter took place. Date/Time Smoking Status/Tobacco Use Comment F acility Aug 23, 2023 01:00 PM VA-TOBACCO USE 30 YEARS OR MORE [facility] Aug 23, 2023 01:00 PM VA-TOBACCO USE ADVICE [facility] Aug 23, 2023 01:00 PM VA-TOBACCO USE CORE SHAPER TOP NO [facility] Aug 23, 2023 01:00 PM VA-TOBACCO USE MED NO [facility] Aug 23, 2023 01:00 PM VA-TOBACCO USER EVERY DAY [facility] Encounter Notes: All associated encounter notes This section contains the clinical notes associated to the Encounter. Date/Time Encounter Note(s) Provider Source May 11, 2024 09:20 AM MENTAL HEALTH DIAGNOSTIC STUDY NOTE: LOCAL TITLE: MENTAL HEALTH DIAGNOSTIC STUDY STANDARD TITLE: MENTAL HEALTH DIAGNOSTIC STUDY NOTE DATE OF NOTE: MAY 11, 2024@09:20:01 ENTRY DATE: MAY 11, 2024@09:20:01 AUTHOR: CLAYTON BENÍTEZ COSIGNER: URGENCY: STATUS: COMPLETED Assessments were sent to the via text/email. These assessments were completed by PITER PEACE on their own device on 05/11/2024 9:18:01 AM. PTSD CHECKLIST (PCL-5) - MONTHLY Patient reported being bothered by the following over the past month: 1. Disturbing memories: A little bit 2. Disturbing dreams: A little bit 3. Re-experiencing events: A little bit 4. Cued distress: A little bit 5. Cued physical symptoms: Not at all 6. Avoiding internal reminders: A little bit 7. Avoiding external reminders: A little bit 8. Trouble with recall: Not at all 9. Negative beliefs: Quite a bit 10. Blaming self/others: A little bit 11. Negative feelings: Not at all 12. Loss of interest: Quite a bit 13. Feeling distant from others: Quite a bit 14. Feeling numb: Quite a bit 15. Feeling irritable: Not at all 16. Reckless behavior: Not at all 17. Being super-alert: A little bit 18. Feeling easily startled: Not at all 19. Difficulty concentrating: Moderately 20. Trouble sleeping: Moderately PCL-5 total score = 24 This measure assesses an individual's perception of the distress associated with possible PTSD symptoms. It is not used to diagnose PTSD. Symptoms are rated from 0-4 in terms of distress they cause the individual. Scores that are greater than or equal to 31-33 suggest that the may meet the criteria for a PTSD diagnosis. However, it is important to use caution when using this cutoff since it is possible for some Veterans with scores lower than 31-33 to meet criteria for PTSD. Additional testing using a structured diagnostic interview, such as the Clinician Administered PTSD Scale for DSM-5, is recommended to confirm diagnostic status. PCL-5 Monthly Total Score (past 180 days): 05/11/2024 24 03/17/2024 43 /jordana/ Clayton Benítez Psy.D. Clinical Psychologist, [facility]-Trauma Recovery Program Signed: 05/11/2024 09:53 CALYTON BENÍTEZ [facility] May 10, 2024 02:48 PM SUICIDE PREVENTION NOTE: LOCAL TITLE: [place]-SUICIDE SEVERITY RATING SCALE STANDARD TITLE: SUICIDE PREVENTION NOTE DATE OF NOTE: MAY 10, 2024@14:48 ENTRY DATE: MAY 10, 2024@14:48:14 AUTHOR: CLAYTON BENÍTEZ EXP COSIGNER: URGENCY: STATUS: COMPLETED Chandler-Suicide Severity Rating Scale (C-SSRS Screener) 1. Over [...] the following disposition plan will be implemented: No further intervention is needed at this time. Contact information and instructions for accessing emergency services provided. Already receiving needed treatment. Contact information and instructions for accessing emergency services provided. /jordana/ Clayton Benítez Psy.D. Clinical Psychologist, [facility] Signed: 05/10/2024 14:48 CLAYTON BENÍTEZ [facility] May 10, 2024 02:47 PM ADDENDUM: LOCAL TITLE: Addendum STANDARD TITLE: ADDENDUM DATE OF NOTE: MAY 10, 2024@14:47:36 ENTRY DATE: MAY 10, 2024@14:47:37 AUTHOR: CLAYTON BENÍTEZ COSIGNER: URGENCY: STATUS: COMPLETED TRAUMA RECOVERY PROGRAM (TRP) - TREATMENT PLANNING SESSION PATIENT: PITER PEACE GENDER: MALE AGE: 53 SERVICE CONNECTION: Service Connected: Yes (80%) VISIT DATE: 05/10/24 14:00 CPT CODE: 13648 via Video Connect TIME SPENT WITH PATIENT: 45 was informed of the limits of confidentiality, as well as the potential risk, benefits, and complications of participating in treatment. The expressed understanding and consented to participate in services. * Obtained and confirmed verbal consent for Telemental health session (Video Connect). Surveyed the environment and identified all participants. Locked the virtual conference room once all participants joined. Obtained and confirmed address: [address] [place], [place] [id number] This location and address the patient is in a safe place and for use in case of an emergency. REASON FOR VISIT [x] Assessment of Veterans current mental health symptoms and goals [x] Treatment planning INTERVENTIONS [x] Assessment of current mental health symptoms [x] Identify 's treatment goals ASSESSMENT MEASURES USED Measures not collected/administered this session, as the focus of this appointment was on treatment planning. ASSESSMENT OF MH SYMPTOMS/CHANGE IN RELEVANT HISTORY IMPACTING CURRENT FUNCTIONING Empire was previously seen in TRP and diagnosed with depressive features and possibly characterological tendencies of clinical relevance. He was assessed for trauma disorder symptoms at that time as well. Empire was referred back to the clinic with request of therapeutic services. The focus of today's session was to clarify presenting concerns, etiology, and 's stated goals for any treatment. When asked what was concerning to the currently, he replied that tinnitus wakes him at night, sleep apnea is degrading his quality of sleep, and that nerve damage has been bothering him lately. Regarding sleep apnea, he endorsed using CPAP but unknowingly removing it during the night, some nights. He reported having a provider he is seeing for sleep apnea. Taken together, negative impacts on sleep from medical conditions appear to be negatively affecting his mood and leading to vet feeling worn out. He described generally feeling that he is not getting good rest. As was self-reporting depressive features, provider asked additional questions about possible depression. Empire stated he feels he is going through the motions much of the time. He endorsed low energy, low motivation, difficulty enjoying pleasant activates some of the time, and depressed mood. reported having morbid ideation such as stepping in front of a truck about two weeks ago. However, he characterized these thoughts as brief and flatly denied any intention or plan to act on such thoughts, citing his loved ones as protective factors. He denied past attempts or HI. Further, he reported weight gain of 15-20 pounds which may be medication induced, he added. He noted trouble with forgetfulness (e.g., misplacing items, being bad with names) but stated he does satisfactorily with TV and reading content. Sleep latency was noted, often due to tinnitus. He estimated about 4-5 hours total of sleep, on average nights. He stated that his medications have been helpful, reducing nightmares to 0 in the past month and helpful with mood. To cope, jose tries to engage in pleasant activities and has a lengthy trip planned this spring with his brothers to go to [employer] in the [facility]. Trauma symptoms were assessed as well today. 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 reported that thoughts of the event are on the back burner of my mind and can become more prominent, about 2-3x in the past month, maximum. He reported mild distress and is usually able to redirect this thinking successfully with other tasks. reported nightmares are now well- controlled with Prazosin and not currently occurring. All other re-experiencing symptoms were denied. denied functionally impairing avoidance of trauma cues. Most of the avoidant behaviors described are consistent with motivation difficulty secondary to depression. Empire noted difficulty trusting others but denied any other mood/cognitive symptoms that were not better explained by a depressive disorder. Hyperarousal symptoms were denied. Irritability reports were not abnormal (only mad when I see something stupid at work) and did not involve outbursts in the past month. He reported that others have told him he is the calmest person they know. When asked about hypervigilance, he described feeling like someone is watching me when alone and feels creeped out. However, this is not suggestive of a trauma reaction and occurs infrequently. In sum, marva does not meet criteria C, D, or E for PTSD/trauma disorder as the reported symptoms are better explained by depressive symptoms and/or insomnia. VETERANS CURRENT GOALS FOR TREATMENT (as part of shared decision-making) Treatment goal in the Veterans own words: - Getting more physical things to sleep better - Interacting with small groups of people to meet people with similar experiences - Anything to get out in nature CURRENT DIAGNOSTIC IMPRESSIONS (based on current symptoms outlined above): Other Specified Depressive Disorder (symptoms of MDD); Insomnia MENTAL STATUS EXAMINATION: MENTAL STATUS arrived on-time for initial assessment. Empire presented with normal mood and congruent affect. 's speech was of normal rate and volume. Thought content appeared normal, with no presence of delusions or hallucinations. Thought processes appeared logical and goal-directed. Although not Directly assessed at time of contact, 's memory appeared grossly intact. Empire demonstrated adequate insight and judgment. Orientation to time, place and person: x4. RISK ASSESSMENT While the reported thoughts about stepping in front of a truck within the past two weeks, he flatly denied any intention to act on such thoughts and reported these thoughts as brief. Moreover, he cited strong protective factors against suicide. He added that he feels he is able to maintain safety. The was asked and flatly denied current suicidal or homicidal ideation, plan, or intent. Despite the thoughts present once in the past two weeks, jose is not a candidate for civil commitment and is not an imminent risk to harm self or others. Elat further denied past suicide attempts or psychiatric hospitalizations. Marva is not at imminent risk to harm self or others at this time. Marva remains sustainable as an outpatient. Even so, the was provided with the [place] Crisis Line phone number and encouraged to utilize this as a resource in the event that jose feels is in danger of harming self or others. Empire voices understanding and willingness to go to the [place] emergency room during crisis or to utilize nearest hospital emergency services as needed. Risk factors include: history of mood symptoms, exposure to traumatic event, male, chronic health conditions. Protective factors include: future-oriented, denied current SI, cited loved ones as strong protective factors Marva was advised how to access emergency mental health services (through the ER or 's Crisis Hotline) and agreed to do so, should the need arise. The was given the number to the Veterans Crisis Hotline. SUMMARY OF RISK BASED UPON REVIEW OF KNOWN RISK/PROTECTIVE FACTORS [x] Empire did not appear to be at imminent risk to harm self or others. Empire is judged to be sustainable as an outpatient at this time. [x] OUTCOME OF SHARED DECISION-MAKING - RECOMMEND ALTERNATIVE TO TRP EPISODE OF CARE Interventions offered were: referral for BHIP therapy or recreation therapy given his reported symptoms and clearly stated goals to address mood and sleep Veterans response: selected BHIP therapy for depression, sleep; possibly following up with recreation therapy after that [x] Trauma-focused therapy is not clinically indicated, as the does not meet criteria for PTSD or a related trauma/stressor disorder. /jordana/ Clayton Benítez Psy.D. Clinical Psychologist, [facility] Recovery [facility] Signed: 05/11/2024 12:05 Receipt Acknowledged By: 05/14/2024 13:25 /jordana/ Zena Souza MD Staff Psychiatrist [facility] --- Original Document --- 05/10/24 PSYCHOLOGY CONSULT ST[facility]: The was seen on this date and a comprehensive evaluation was completed. No emergent mental health concerns were identified; the is aware of how to access emergency mental health services, should the need arise. A full report will follow. /jordana/ Clayton Benítez Psy.D. Clinical Psychologist, [facility] Recovery [facility] Signed: 05/10/2024 14:[address] [facility] May 10, 2024 02:45 PM PSYCHOLOGY CONSULT: LOCAL TITLE: PSYCHOLOGY CONSULT ST STANDARD TITLE: PSYCHOLOGY CONSULT DATE OF NOTE: MAY 10, 2024@14:45 ENTRY DATE: MAY 10, 2024@14:45:23 AUTHOR: CLAYTON BENÍTEZ EXP COSIGNER: URGENCY: STATUS: COMPLETED PSYCHOLOGY CONSULT [facility] Has ADDENDA The was seen on this date and a comprehensive evaluation was completed. No emergent mental health concerns were identified; the is aware of how to access emergency mental health services, should the need arise. A full report will follow. /jordana/ Clayton Benítez Psy.D. Clinical Psychologist, [facility] Recovery [facility] Signed: 05/10/2024 14:47 05/10/2024 ADDENDUM STATUS: COMPLETED TRAUMA RECOVERY PROGRAM (TRP) - TREATMENT PLANNING SESSION PATIENT: PITER PECAE GENDER: MALE AGE: 53 SERVICE CONNECTION: Service Connected: Yes (80%) VISIT DATE: 05/10/24 14:00 CPT CODE: 43086 via Video Connect TIME SPENT WITH PATIENT: 45 Empire was informed of the limits of confidentiality, as well as the potential risk, benefits, and complications of participating in treatment. The Empire expressed understanding and consented to participate in services. * Obtained and confirmed verbal consent for Telemental health session (Video Connect). Surveyed the environment and identified all participants. Locked the virtual conference room once all participants joined. Obtained and confirmed address: [address] [place] [address] This location and address the patient is in a safe place and for use in case of an emergency. REASON FOR VISIT [x] Assessment of Veterans current mental health symptoms and goals [x] Treatment planning INTERVENTIONS [x] Assessment of current mental health symptoms [x] Identify Empire's treatment goals ASSESSMENT MEASURES USED Measures not collected/administered this session, as the focus of this appointment was on treatment planning. ASSESSMENT OF MH SYMPTOMS/CHANGE IN RELEVANT HISTORY IMPACTING CURRENT FUNCTIONING Empire was previously seen in TRP and diagnosed with depressive features and possibly characterological tendencies of clinical relevance. He was assessed for trauma disorder symptoms at that time as well. was referred back to the clinic with request of therapeutic services. The focus of today's session was to clarify presenting concerns, etiology, and 's stated goals for any treatment. When asked what was concerning to the currently, he replied that tinnitus wakes him at night, sleep apnea is degrading his quality of sleep, and that nerve damage has been bothering him lately. Regarding sleep apnea, he endorsed using CPAP but unknowingly removing it during the night, some nights. He reported having a provider he is seeing for sleep apnea. Taken together, negative impacts on sleep from medical conditions appear to be negatively affecting his mood and leading to jose feeling worn out. He described generally feeling that he is not getting good rest. As marva was self-reporting depressive features, provider asked additional questions about possible depression. stated he feels he is going through the motions much of the time. He endorsed low energy, low motivation, difficulty enjoying pleasant activates some of the time, and depressed mood. reported having morbid ideation such as stepping in front of a truck about two weeks ago. However, he characterized these thoughts as brief and flatly denied any intention or plan to act on such thoughts, citing his loved ones as protective factors. He denied past attempts or HI. Further, he reported weight gain of 15-20 pounds which may be medication induced, he added. He noted trouble with forgetfulness (e.g., misplacing items, being bad with names) but stated he does satisfactorily with TV and reading content. Sleep latency was noted, often due to tinnitus. He estimated about 4-5 hours total of sleep, on average nights. He stated that his medications have been helpful, reducing nightmares to 0 in the past month and helpful with mood. To cope, jose tries to engage in pleasant activities and has a lengthy trip planned this spring with his brothers to go to [employer] in the [facility]. Trauma symptoms were assessed as well today. 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 Empire reported that thoughts of the event are on the back burner of my mind and can become more prominent, about 2-3x in the past month, maximum. He reported mild distress and is usually able to redirect this thinking successfully with other tasks. reported nightmares are now well- controlled with Prazosin and not currently occurring. All other re-experiencing symptoms were denied. Empire denied functionally impairing avoidance of trauma cues. Most of the avoidant behaviors described are consistent with motivation difficulty secondary to depression. noted difficulty trusting others but denied any other mood/cognitive symptoms that were not better explained by a depressive disorder. Hyperarousal symptoms were denied. Irritability reports were not abnormal (only mad when I see something stupid at work) and did not involve outbursts in the past month. He reported that others have told him he is the calmest person they know. When asked about hypervigilance, he described feeling like someone is watching me when alone and feels creeped out. However, this is not suggestive of a trauma reaction and occurs infrequently. In sum, marva does not meet criteria C, D, or E for PTSD/trauma disorder as the reported symptoms are better explained by depressive symptoms and/or insomnia. VETERANS CURRENT GOALS FOR TREATMENT (as part of shared decision-making) Treatment goal in the Veterans own words: - Getting more physical things to sleep better - Interacting with small groups of people to meet people with similar experiences - Anything to get out in nature CURRENT DIAGNOSTIC IMPRESSIONS (based on current symptoms outlined above): Other Specified Depressive Disorder (symptoms of MDD); Insomnia MENTAL STATUS EXAMINATION: MENTAL STATUS Empire arrived on-time for initial assessment. Empire presented with normal mood and congruent affect. Empire's speech was of normal rate and volume. Thought content appeared normal, with no presence of delusions or hallucinations. Thought processes appeared logical and goal-directed. Although not Directly assessed at time of contact, 's memory appeared grossly intact. demonstrated adequate insight and judgment. Orientation to time, place and person: x4. RISK ASSESSMENT While the reported thoughts about stepping in front of a truck within the past two weeks, he flatly denied any intention to act on such thoughts and reported these thoughts as brief. Moreover, he cited strong protective factors against suicide. He added that he feels he is able to maintain safety. The was asked and flatly denied current suicidal or homicidal ideation, plan, or intent. Despite the thoughts present once in the past two weeks, jose is not a candidate for civil commitment and is not an imminent risk to harm self or others. Jose further denied past suicide attempts or psychiatric hospitalizations. Marva is not at imminent risk to harm self or others at this time. Marva remains sustainable as an outpatient. Even so, the was provided with the [place] Crisis Line phone number and encouraged to utilize this as a resource in the event that vet feels is in danger of harming self or others. Empire voices understanding and willingness to go to the [place] emergency room during crisis or to utilize nearest hospital emergency services as needed. Risk factors include: history of mood symptoms, exposure to traumatic event, male, chronic health conditions. Protective factors include: future-oriented, denied current SI, cited loved ones as strong protective factors was advised how to access emergency mental health services (through the ER or [facility] Crisis Hotline) and agreed to do so, should the need arise. The was given the number to the [facility] Crisis Hotline. SUMMARY OF RISK BASED UPON REVIEW OF KNOWN RISK/PROTECTIVE FACTORS [x] Empire did not appear to be at imminent risk to harm self or others. is judged to be sustainable as an outpatient at this time. [x] OUTCOME OF SHARED DECISION-MAKING - RECOMMEND ALTERNATIVE TO TRP EPISODE OF CARE Interventions offered were: referral for BHIP therapy or recreation therapy given his reported symptoms and clearly stated goals to address mood and sleep Veterans response: selected BHIP therapy for depression, sleep; possibly following up with recreation therapy after that [x] Trauma-focused therapy is not clinically indicated, as the does not meet criteria for PTSD or a related trauma/stressor disorder. /jordana/ Clayton Benítez Psy.D. Clinical Psychologist, [facility]-Trauma Recovery Program Signed: 05/11/2024 12:05 Receipt Acknowledged By: * AWAITING SIGNATURE * ZENA SOUZA CHRISTOPHER KURT [facility]
--- OUTSIDE RECORDS SUMMARY | 2024-10-01 07:39 | XMS_ITS ---
Author Name [facility] [place] [facility] [place] Address [address] [place] [address] Care Team Providers Care Boiler Shop Supervisor Name Role Phone BRISA ANN Primary Care Provider Unavailmulticare [facility] dilma Insurance Providers: All historical and [...] [place] PREFERRED PROVIDER ORGANIZAT ION (PPO) [facility] Aug 29, 2023 [id number] [phone] REGINALD PEACE PATIENT ANTHEM [employer] PREFERRED PROVIDER ORGANIZAT ION (PPO) [facility] Aug 29, 2023 [id number] [phone] REGINALD PEACE PATIENT ANTHEM [place] PREFERRED PROVIDER ORGANIZAT ION (PPO) [facility] Aug 29, 2023 [id number] [phone] REGINALD PEACE PATIENT [place] PREFERRED PROVIDER ORGANIZAT ION (PPO) [facility] Aug 29, 2023 [id number] [phone] REGINALD PEACE PATIENT CAREMARK ([id number])RX PRESCRIPT ION [place] Aug 29, 2023 [id number] [phone] REGINALD PEACE PATIENT Selected Encounter This section includes the information on record at [place] for the Encounter. Date/Time Encounter Type Encounter Description Reason Provider Source Oct 21, 2023 10:00 AM PSYTX W PT 30 MINUTES PCMHI INDIV ICD-10-CM G47.00 Insomnia, unspecified BATJUAN JOSE TORRES [facility] Encounter Template Text not used by [place] Assessments - Encounter Diagnoses This section includes the primary and secondary diagnoses documented for the Encounter. Date/Time Primary/Secondary Diagnosis Diagnosis Name Provider Source Oct 21, 2023 10:02 AM PRIMARY Insomnia, unspecified JUAN JOSE JAMES [facility] Oct 21, 2023 10:02 AM SECONDARY Depression, unspecified BATJUAN JOSE TORRES [facility] Plan of Treatment: Future Appointments (+ 6 months) and Future Tests (+/- 45 days) The Plan of Treatment section includes future care activities for the patient from all [place] [facility]. This section includes future appointments and future orders which are active, pending or scheduled. Future Appointments This section includes appointments that were scheduled to occur 6 months from the date of the Encounter, up to a maximum of 20 appointments. The data comes from all [place] treatment facilities. Appointment Date/Time Appointment Type Appointme nt Facility Name Dec 16, 2023 01:00 PM AMBULATORY - PSYCHIATRY [facility] Jan 18, 2024 03:30 PM AMBULATORY - MEDICINE [facility] Feb 08, 2024 11:00 AM AMBULATORY - PSYCHIATRY [facility] Mar 15, 2024 11:00 AM AMBULATORY - [facility]RY [facility] Apr 04, 2024 10:30 AM AMBULATORY - MEDICINE [facility] Social History: Smoking Status (Most current) and Tobacco Use (All prior to encounter date) This section includes the most current, and the historical, smoking and tobacco- related health factors from the [facility] where the Encounter took place. Current Smoking Status This section includes the most current smoking, or tobacco-related health factor, from the [facility] where the Encounter took place. Date/Time Current Smoking Status Comment Mary Ellen ity Aug 23, 2023 01:00 PM VA-TOBACCO USER EVERY DAY [facility] Tobacco Use History This section includes a history of the smoking, or tobacco-related health factors, that were collected on or before the date of the Encounter. The data comes from the [facility] where the Encounter took place. Date/Time Smoking Status/Tobacco Use Comment F acility Aug 23, 2023 01:00 PM VA-TOBACCO USE 30 YEARS OR MORE [facility] Aug 23, 2023 01:00 PM VA-TOBACCO USE ADVICE [facility] Aug 23, 2023 01:00 PM VA-TOBACCO USE FOREST FIRE LOOKOUT NO [facility] Aug 23, 2023 01:00 PM VA-TOBACCO USE MED NO [facility] Aug 23, 2023 01:00 PM VA-TOBACCO USER EVERY DAY [facility] Encounter Notes: All associated encounter notes This section contains the clinical notes associated to the Encounter. Date/Time Encounter Note(s) Provider Source Oct 21, 2023 09:48 AM PSYCHOLOGY OUTPATI ENT NOTE: LOCAL TITLE: PRIMARY CARE PSYCHOLOGY NOTE [facility] STANDARD TITLE: PSYCHOLOGY OUTPATIENT NOTE DATE OF NOTE: OCT 21, 2023@09:48 ENTRY DATE: OCT 21, 2023@09:48:27 AUTHOR: EDWIN JAMES COSIGNER: URGENCY: STATUS: COMPLETED NAME: PITER PEACE DATE OF : Apr TIME SPENT WITH PATIENT: 30 minutes DIAGNOSIS BEING TREATED: Insomnia, unspecified; Depression, unspecified CPT Code: 96345 NATURE OF ENCOUNTER: Follow up visit INFORMED CONSENT: Goddard has been informed of the Risks, Benefits and potential complications of this plan of care, and continued to agree to participate. SESSION FORMAT: [X] Ulcv-fb-[id number] [ ] Video Telehealth [ ]Phone Confirmed 's location and phone number for virtual appointment. [ ]Yes [X]N/A NOTE: Use separate CVT template, if appropriate SESSION NUMBER: 2 INTERVENTION/TREATMENT PROVIDED [X] [place] [X] Shared decision-making regarding goals of care [X] Cognitive Behavioral Therapy Skills Description of Interventions Provided by Therapist: -Reviewed sleep hygiene recommendations and affirmed Goddard's progress with SMART goals related to sleep -Discussed recent nightmare and identified strategies to use to respond to distress related to nightmare -Provided education on relaxation strategies such as progressive muscle relaxation (PMR), guided imagery, and deep breathing -Practiced PMR in session and processed experience RELEVANT HISTORICAL DEVELOPMENTS SINCE LAST CONTACT: NOTE: Describe relevant historical developments below Goddard reported feeling tired today. 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 He reported some heightened anxiety about if this nightmare will repeat. ASSESSMENT MEASURES USED: [X] Measure in Mental Health Waste Treatment Operator. See accompanying Mental Health Diagnostic Study for details. These assessments were completed by PITER PEACE via provider direct entry on 10/21/2023 10:05:49 AM. PATIENT HEALTH QUESTIONNAIRE-9 (PHQ-9) The patient reported some symptoms of depression; symptoms are not consistent with a major depressive episode. Patient reported being bothered by the following over the last 2 weeks: 1. Little interest or pleasure: Several Days 2. Feeling down, depressed or hopeless: Several Days 3. Trouble sleeping: Several Days 4. Tired, low energy: More than half the days 5. Poor appetite, over-eating: Several Days 6. Feelings of failure, guilt: Several Days 7. Trouble concentrating: Several Days 8. Motor retardation, agitation: Not at all 9. Thoughts better off /hurting self: Not at all PHQ-9 total score = 8 1-4 = minimal symptoms 5-9= mild symptoms 10-14= moderate symptoms 15-19= moderately severe symptoms 20-27= severe depressive symptoms The patient stated that the depressive symptoms made it somewhat difficult to work, take care of things at home, or get along with others. PHQ-9 Total Score (past 180 days): 10/21/2023 8 09/16/2023 10 INSOMNIA SEVERITY INDEX (TAYLER) Patient reported the severity of insomnia problems in the last two weeks as follows: 1. Difficulty falling asleep: Moderate 2. Difficulty staying asleep: Mild 3. Problems waking up too early: Mild 4. Satisfaction with sleep: Dissatisfied 5. Impaired quality of life noticeable to others: Somewhat 6. Distressed by sleep problems: Somewhat 7. Interference with daily functioning: Somewhat TAYLER total score = 13 0-7 = No clinically significant insomnia 8-14 = Subthreshold insomnia 15-21 = Clinical insomnia (moderate severity) 22-28 = Clinical insomnia (severe) TAYLER Total Score (past 180 days): 10/21/2023 13 09/26/2023 12 Collaboratively discussed outcomes related to assessment and treatment progress and measures will continue to be monitored. MEASURABLE TREATMENT GOALS FOR THIS EPISODE OF CARE: Goals were developed with using shared decision making 1. GOAL/OBJECTIVES: Improve sleep quality and quantity PROGRESS TOWARDS GOAL: self-reported improve sleep overall but noted one nightmare interrupted sleep quality; no meaningful change in TAYLER noted 2. GOAL/OBJECTIVES: -Reduce depressive sxs PROGRESS TOWARDS GOAL: reported improved depressive sxs; sxs have decreased on PHQ-9 as well RESPONSE TO INTERVENTIONS: Veterans participation/engagement: [X]The participated actively in the current interventions. [ ]Other: The continues to consent to the current plan of care: Yes Comments: RISK ASSESSMENT: [X] NO CHANGE IN RISK FACTORS Related to Suicide or Homicide. Goddard did not report any current suicidal/homicidal ideation, plan, or intent. Goddard did not appear to be at imminent risk for suicide or homicide at this time and is considered sustainable at the current level of care. -IDEATION: [X] Goddard denied current suicidal or homicidal ideation, plan, or intent. -CLINICAL JUDGMENT AND DISPOSITION: [X] In consideration of relevant risk and protective factors, the did NOT appear to be at imminent risk for suicide or homicide at this time and IS sustainable at the current level of care. -Comments: ASSIGNED WORK: Practice PMR, guided imagery, and/or deep breathing after nightmares and as needed COLLABORATIVE RECOMMENDATIONS/PLAN: Collaboratively discussed outcomes related to assessment and treatment progress. Based on this discussion: [X] No changes to plan of care. expressed agreement with therapy tasks and [id number] plan. PTSD Screening: PC-PTSD-5 A PTSD screening test (PC-PTSD-5) was positive (score=4). IN THE PAST MONTH, have you ever had any experience that was so frightening, horrible or traumatic. For example: A serious accident or fire a physical or sexual assault or abuse An earthquake or flood A war Seeing someone be killed or seriously injured Having a loved one through homicide or suicide 1. Have you ever experienced this kind of event? YES 2. Had nightmares about the event(s) or thought about the event(s) when you did not want to? YES 3. Tried hard not to think about the event(s) or went out of your way to avoid situations that reminded you of the event(s)? YES 4. Been constantly on guard, watchful, or easily startled? YES 5. [place] numb or detached from people, activities, or your surroundings? YES 6. [place] guilty or unable to stop blaming yourself or others for the event(s) or any problems the event(s) may have caused? NO Follow-Up Pos PTSD/Depression: I have reviewed the results of the Mental Health screens and have evaluated the patient. Based on the evaluation, the following disposition plan will be implemented: Already receiving needed treatment. Contact information and instructions for accessing emergency services provided. /jordana/ EDWIN JAMES Psychologist Signed: 10/21/2023 11:47 [facility]
--- OUTSIDE RECORDS SUMMARY | 2024-10-01 07:39 | XMS_ITS | Encounter Summary ---
Author Name [facility] [place] Organization [facility] [place] Address [address] [place] [address] Care Team Providers Care Sales Representative Advertising Name Role Phone BRISA ANN Primary Care Provider Unavailabl e Insurance Providers: All historical and current Section [...] [place] Aug 29, 2023 [id number] [phone] REGINALD PEACE PATIENT ANTHEM [employer] [place] PREFERRED PROVIDER ORGANIZAT ION (PPO) [place] Aug 29, 2023 [id number] [phone] REGINALD PEACE PATIENT ANTHEM [place] PREFERRED PROVIDER ORGANIZAT ION (PPO) [place] Aug 29, 2023 [id number] [phone] REGINALD PEACE PATIENT [employer] PREFERRED PROVIDER ORGANIZAT ION (PPO) [place] Aug 29, 2023 [id number] [phone] REGINALD PEACE PATIENT CAREMARK ([id number])RX PRESCRIPT ION [place] Aug 29, 2023 [id number] [phone] REGINALD PEACE PATIENT Selected Encounter This section includes the information on record at [place] for the Encounter. Date/Time Encounter Type Encounter Description Reason Pro vider Source IHE Encounter Template Text not used by [place]
--- OUTSIDE RECORDS SUMMARY | 2024-10-01 07:39 | XMS_ITS | Encounter Summary ---
Author Name [facility] [place] [facility] [place] [facility] [place] Address [address] [place] [address] Care Team Providers Care Bike Designer Name Role Phone BRISA ANN Primary Care [...] PREFERRED PROVIDER ORGANIZAT ION (PPO) [facility] Aug 29, 2023 [id number] [phone] REGINALD PEACE PATIENT ANTHEM [employer] PREFERRED PROVIDER ORGANIZAT ION (PPO) [facility] Aug 29, 2023 [id number] [phone] REGINALD PEACE PATIENT [place] PREFERRED PROVIDER ORGANIZAT ION (PPO) [facility] Aug 29, 2023 [id number] [phone] REGINALD PEACE PATIENT [place] PREFERRED PROVIDER ORGANIZAT ION (PPO) STATE [facility] Aug 29, 2023 [id number] [phone] NATAREGINALD THERESAJose Cruz PATIENT CAREMARK ([id number])RX PRESCRIPT ION [facility] Aug 29, 2023 [id number] [phone] NATAREGINALD PASTRANA PATIENT Selected Encounter This section includes the information on record at [place] for the Encounter. Date/Time Encounter Type Encounter Description Reason Pro vider Source Dec 21, 2023 09:38 AM Outpatient Encounter COMMUNITY CARE CONSULT I[facility] Encounter Template Text not used by [place] Plan of Treatment: Future Appointments (+ 6 months) and Future Tests (+/- 45 days) The Plan of Treatment section includes future care activities for the patient from all [place] treatmentfacilities. This section includes future appointments and future orders which are active, pending or scheduled. Future Appointments This section includes appointments that were scheduled to occur 6 months from the date of the Encounter, up to a maximum of 20 appointments. The data comes from all [place] treatment facilities. Appointment Date/Time Appointment Type Appointme nt Facility Name Jan 18, 2024 03:30 PM AMBULATORY - MEDICINE [facility] Feb 08, 2024 11:00 AM AMBULATORY - PS[facility]RY [facility] Mar 15, 2024 11:00 AM AMBULATORY - PSYCHIATRY [facility] Apr 04, 2024 10:30 AM AMBULATORY - MEDICINE [facility] May 01, 2024 02:00 PM AM[facility]UL[facility]ORY - [facility] May 10, 2024 02:00 PM [facility] May 30, 2024 08:00 AM [facility] Jun 11, 2024 10:00 AM [facility] Jun 18, 2024 09:00 AM AMBULATORY - REHAB MEDICIN E [facility] Encounter Notes: All associated encounter notes This section contains the clinical notes associated to the Encounter. Date/Time Encounter Note(s) Provider Source Dec 21, 2023 09:38 AM NONVA NOTE: LOCAL TITLE: COMMUNITY CARE-REQUEST FOR SERVICE NOTE [facility] STANDARD TITLE: NONVA NOTE DATE OF NOTE: DEC 21, 2023@09:38 ENTRY DATE: DEC 21, 2023@09:38:09 AUTHOR: LISETTE CORONA EXP COSIGNER: URGENCY: STATUS: COMPLETED Request for Services (RFS) documentation has been sent for scanning to [facility] Community Care Consult: COMMUNITY CARE-sleep study Consult No: [id number] Date sent to scanning: Nov A Request for Service (RFS) form [id number] has been received which includes the following: Care Requested:DME request for CPAP ICD-10 Dx code: G47.33 Date [facility] received request: Nov Date service required: Nov Requesting Community Provider Information: Name of Ordering Provider: FAY Garcia Office:[facility] Address, [facility], State: [address] [place] [address] [address] [place] [address] /jordana/ LISETTE CORONA RN REGISTERED NURSE Signed: 12/21/2023 09:47 Receipt Acknowledged By: 12/21/2023 16:36 /jordana/ BRISA ANN DO STAFF PHYSICIAN LISETTE CORONA [facility]
--- OUTSIDE RECORDS SUMMARY | 2024-10-01 07:39 | XMS_ITS | Encounter Summary ---
Author Name [facility] [place] [facility] [place] [facility] [place] [facility] [place] Address [address] [place] [address] Care Team Providers Care Chief Media Officer Name Role Phone JENNIE ANN Primary Care Provider [facility] Insurance Providers: All historical and current [...] IN PREFERRED PROVIDER ORGANIZAT ION (PPO) [facility] Aug 29, 2023 [id number] [phone] REGINALD GOODSON PATIENT ANTHEM [employer] [place] PREFERRED PROVIDER ORGANIZAT ION (PPO) [facility] Aug 29, 2023 [id number] [phone] REGINALD GOODSON PATIENT [place] [employer] [place] PREFERRED PROVIDER ORGANIZAT ION (PPO) [facility] Aug 29, 2023 [id number] [phone] REGINALD GOODSON PATIENT [place] PREFERRED PROVIDER ORGANIZAT ION (PPO) [facility] Aug 29, 2023 [id number] [phone] REGINALD GOODSON PATIENT [place] ([id number])RX PRESCRIPT ION [facility] Aug 29, 2023 [id number] [phone] REGINALD GOODSON PATIENT Selected Encounter This section includes the information on record at [place] for the Encounter. Date/Time Encounter Type Encounter Description Reason Provider Source Apr 04, 2024 10:30 AM OFFICE O/P EST MOD 30 MIN PRIMARY CARE/MEDICINE ICD-10-CM G47.39 Other sleep apnea JENNIE ANN [facility] Encounter Template Text not used by [place] Assessments - Encounter Diagnoses This section includes the primary and secondary diagnoses documented for the Encounter. Date/Time Primary/Secondary Diagnosis Diagnosis Name Provider Source Apr 12, 2024 07:09 AM PRIMARY Other sleep apnea [facility] Apr 12, 2024 07:09 AM SECONDARY Depression, unspecified [facility] Apr 12, 2024 07:09 AM SECONDARY Encounter for immunization CHAYA ALVES [facility] Apr 12, 2024 07:09 AM SECONDARY Nightmare disorder [facility] Apr 12, 2024 07:09 AM SECONDARY Post-traumatic stress disorder, chronic [facility] Apr 12, 2024 07:09 AM SECONDARY Restless legs syndrome [facility] Apr 12, 2024 07:09 AM SECONDARY Tobacco use [facility] Plan of Treatment: Future Appointments (+ 6 months) and Future Tests (+/- 45 days) The Plan of Treatment section includes future care activities for the patient from all [place] treatmentfacilities. This section includes future appointments and future orders which are active, pending or scheduled. Future Appointments This section includes appointments that were scheduled to occur 6 months from the date of the Encounter, up to a maximum of 20 appointments. The data comes from all [place] treatment facilities. Appointment Date/Time Appointment Type Appointme nt Facility Name May 01, 2024 02:00 PM AMBULATORY - PSYCHIATRY [facility] May 10, 2024 02:00 PM AMBULATORY - PSYCHIATRY [facility] May 30, 2024 08:00 AM AMBULATORY - PSYCHIATRY [facility] Jun 11, 2024 10:00 AM AMBULATORY - MEDICINE [facility] Jun 18, 2024 09:00 AM AMBULATORY - REHAB MEDICIN E [facility] Sep 12, 2024 10:00 AM AMBULATORY - PSYCHIATRY [facility] Oct 02, 2024 11:00 AM AMBULATORY - MEDICINE [facility] Active, Pending, and Scheduled Orders This section includes a listing of several types of active, pending, and scheduled orders, including clinic medications orders, diagnostic test orders, procedure orders and consult orders; where the start date of the order is 45 days before the date of the Encounter or 45 days after the date of theEncounter. The data comes from all [facility]. Test Date/Time Test Type Test Details Facility Name Apr 23, 2024 12:00 AM Laboratory - Chemi stry Order OCCULT BLOOD FIT X1 SCREEN (MFP ONLY) STOOL FECES SP [facility] Lab Results: +/- 30 days of the encounter This section includes the Chemistry and Hematology Lab Results on record with [facility] for the patient. Radiology Reports and Pathology Reports are provided separately, in subsequent sections. Lab Results This section contains the Chemistry/Hematology Results that were resulted 30 days before or 30 daysafter the date of the Encounter. Date/Time Source Result Type Result - Unit Interpretation Reference Range Specimen Type Comment May 01, 2024 08:27 AM [facility] TESTOSTERONE, FREE PANEL SERUM Specimen Type: SERUM Comment: For additional information, please refer to http://education. [employer]/faq/ TotalTestosterone [id number] (This link is being provided for informational/ educational purposes only.) This test was developed and its analytical performance characteristics have been determined by [employer] [place], [place]. It has not been cleared or approved by the U.S. Food and Drug Administration. This assay has been validated pursuant to the CLIA regulations and is used for clinical purposes. Test Performed by [facility], [address] [place], [place] Dewey Rhoades M.D., Ph.D., Director of Laboratories , CLIA [id number] Ordering Provider: JENNIE ANN Report Released Date/Time: Apr 04, 2024 11:00 AM Reporting Lab: [facility] [address] [facility] [address] Performing Lab: [facility] [address] [facility] TESTOSTERONE, TOTAL 426 ng/dL 250-1100 ALBUMIN (PB-sendout) 4.1 g/dL 3.6-5.1 TESTOSTERONE,FREE (sendout) 47.8 pg/mL 4 6.0-224.0 TESTOSTERONE,BIOAVAILABLE (MA-PB-SO 89.9 ng/dL L 110.0-575.0 SEX HORMONE BINDING GLOBULIN 41 nmol/L 1 0-50 Vital Signs: All taken on the encounter date This section contains inpatient and outpatient Vital Signs collected on the date of the Encounter. Date/Time Temperature Pulse Blood Pressure Respiratory Rate SP02 Pain Height Weight Body Mass Index Source Apr 04, 2024 10:20 AM 98.4 62 126/78 18 98 0 249.6 36 [facility] Immunizations: All administered on the encounter date This section contains immunizations associated to the Encounter. Immunization Series Date Issued Administered By Site Reaction Lot Number CVX Code Drug Senior Java Developer Comment(s) Source INFLUENZA, SPLIT VIRUS, TRIVALENT, PF Apr 04, 2024 CHAYA ALVES RIGHT DELTO ID [id number] GLAXOSMITHKLI NE ADMINISTERE D AT [facility] ZOSTER RECOMBINANT 1 Apr 04, 2024 CHAYA ALVES LEFT DELTO ID [id number] GLAXOSMITHKLI NE ADMINISTERE D AT [facility] Social History: Smoking Status (Most current) and Tobacco Use (All prior to encounter date) This section includes the most current, and the historical, smoking and tobacco- related health factors from the [place] facility where the Encounter took place. Current Smoking Status This section includes the most current smoking, or tobacco-related health factor, from the [place] facility where the Encounter took place. Date/Time Current Smoking Status Comment Mary Ellen ity Aug 23, 2023 01:00 PM [place]-TOBACCO USER EVERY DAY [facility] Tobacco Use History This section includes a history of the smoking, or tobacco-related health factors, that were collected on or before the date of the Encounter. The data comes from the [place] facility where the Encounter took place. Date/Time Smoking Status/Tobacco Use Comment F acility Aug 23, 2023 01:00 PM VA-TOBACCO USE 30 YEARS OR MORE [facility] Aug 23, 2023 01:00 PM VA-TOBACCO USE ADVICE [facility] Aug 23, 2023 01:00 PM VA-TOBACCO USE COOPERATIVE EXTENSION AGENT NO [facility] Aug 23, 2023 01:00 PM VA-TOBACCO USE MED NO [facility] Aug 23, 2023 01:00 PM VA-TOBACCO USER EVERY DAY [facility] Encounter Notes: All associated encounter notes This section contains the clinical notes associated to the Encounter. Date/Time Encounter Note(s) Provider Source May 17, 2024 10:16 AM PHYSICIAN LETTERS: LOCAL TITLE: TEST RESULT GENERAL LETTER ST STANDARD TITLE: PHYSICIAN LETTERS DATE OF NOTE: MAY 17, 2024@10:16 ENTRY DATE: MAY 17, 2024@10:16:57 AUTHOR: JENNIE ANN COSIGNER: URGENCY: STATUS: COMPLETED [facility] [address] [place] [address] MAY 17, 2024 PITER GOODSON [address], [place] [address] Dear Piter Goodson, I would like to update you on your recent test results. Your total testosterone was normal. Your bioavailable testosterone was low. I reached out to our endocrinology department and they said that since your total testosterone was normal, they would not recommend replacement of testosterone. Test Name Result Units Range --------- ------ ----- ----- TESTBIO 89.9 L ng/dL 110.0 - 575.0 SEXHORM 41 nmol/L 10 - 50 ALBUMIN (PB-sendout) 4.1 g/dL 3.6 - 5.1 FR TONI 47.8 pg/mL 46.0 - 224.0 TESTOSTERONE, TOTAL 426 ng/dL 250 - 1100 FUTURE APPOINTMENTS: 05/30/2024 08:00 [facility]- MHC IND [facility] 06/11/2024 10:00 COM CARE-STL SLEEP STUDY 06/18/2024 09:00 [facility]-RECTHER LEISURE CON ED 10/02/2024 11:00 [facility]-PACT E13 PCP Sincerely, JENNIE ANN, DO STAFF PHYSICIAN PITER GOODSON [facility] Apr 04, 2024 11:32 AM NURSING IMMUNIZATI ON NOTE: LOCAL TITLE: CLINIC ADMINISTERED IMMUNIZATION/MEDICATION(S) STANDARD TITLE: NURSING IMMUNIZATION NOTE DATE OF NOTE: APR 04, 2024@11:32:21 ENTRY DATE: APR 04, 2024@11:32:21 AUTHOR: CHAYA ALVES EXP COSIGNER: URGENCY: STATUS: COMPLETED Administered: INFLUENZA, SPLIT VIRUS, TRIVALENT, PF Date Administered: Apr 04, 2024 10:30 Senior Java Developer: GLAXOSMITHKLINE Lot: [id number] Exp Date: Aug 27, 2024 NDC: 287962875081 Admin Route/Site: INTRAMUSCULAR/RIGHT DELTOID Dosage: 0.5mL Vaccine Information Statement(s): INFLUENZA(FLU) VACC(INACTIVATED OR RECOMBINANT)VIS Oct 03, 2020 (TURKISH) Order By: Policy Administered By: Chaya Alves Administered: ZOSTER RECOMBINANT Date Administered: Apr 04, 2024 10:30 Series: Series 1 Senior Java Developer: GLAXOSMITHKLINE Lot: [id number] Exp Date: Jan 10, 2026 NDC: [id number] Admin Route/Site: INTRAMUSCULAR/LEFT DELTOID Dosage: 0.5mL Vaccine Information Statement(s): RECOMBINANT ZOSTER VACCINE VIS Apr 03, 2021 (TURKISH) Order By: Jennie Ann Administered By: Chaya Alves /jordana/ CHAYA ALVES LPN LICENSED PRACTICAL NURSE Signed: 04/04/2024 11:32 CHAYA ALVES [facility] Apr 04, 2024 10:38 AM PRIMARY CARE NOTE: LOCAL TITLE: PRIMARY CARE PROVIDER ESTABLISHED VISIT ST STANDARD TITLE: PRIMARY CARE NOTE DATE OF NOTE: APR 04, 2024@10:38 ENTRY DATE: APR 04, 2024@10:38:18 AUTHOR: JENNIE ANNIGNER: URGENCY: STATUS: COMPLETED ESTABLISHED PATIENT [id number]: Would like [place] paperwork filled out. He says about 3-4 times/month he doesn't sleep well from EDGAR, PTSD/nightmares, insomnia and he is then really tired and shouldn't operate vehicle/heavy machinery at work. Would like intermittent leave for it. Filled out today and given to patient to take with him. Prazosin is helping with nightmares. Wants to stay at 1 mg. He is continuing to see Dr. Jose Swift (sleep medicine) for his insomnia, EDGAR. Says they are checking Vit C and iron levels and titrating his sleep machine. He would like an extension of the community care referral so he can continue seeing him. Gabapentin is helping with his left shoulder pain. He thinks it might be causing some weight gain, but doesn't want to stop it. He is wondering if he could have low testosterone, would like it checked. Also wonders about weight loss medications like ozempic. Discussed that before those could be considered he would have to try MOVE program - given information on how to schedule it. Nightmares/PTSD -since time in service -prazosin 1 mg daily ED -viagra palmira -tahmina in the past worked well Restless leg, EDGAR -CPAP -on iron supplement for RLS -seeing Dr. Jose Swift in [place] Left arm pain -dilocated left 5th digit at PIP joint in 1990 during service, has had nerve pain up left side of arm ever since -takes gabapentin 300 mg daily Chronic rhinitis -since time in -flonase Tinnitus -treats conservatively -referred to audiology Chainsaw injury left inner arm 2022 -repair at [facility] -pain on and off Depression -sees at [place] -no medications Skin lesion -seeing outside sales account representative HLD -not on a statin Tobacco use -smokes -no ready to quit SOURCE OF HISTORY: Patient PAST MEDICAL HISTORY: 1) Exposure to potentially hazardous substance 2) Sleep apnea 3) Allergic rhinitis 4) Tinnitus 5) Hyperlipidemia FAMILY HISTORY: Mom of ALS in 1994. Maternal cousin also had ALS. Dad - alive and healthy. Brother - tonsil cancer. SOCIAL HISTORY: NICOTINE/TOBACCO: Smokes 1/2 ppd. Started at age 16. Not ready to quit at the moment. ILLICIT DRUGS: denies ALCOHOL: drinks 2 times/week. Usually 7-8 beers. Recommended cutting down. SCREENINGS: Colonoscopy - tells me normal ~2018. He will send records. Thinks it was done at [facility] in [place], [place]. HEP C - 07/2024 HIV - 07/2025 PSA - 07/[address] - will discuss at next visit AAA screening - will start at 63 VACCINATIONS Tetanus - 2022 Flu - Today COVID - pt declines Pneumonia - 2023 Shingles - Will start series today ALLERGIES: Patient has answered NKA ALLERGY REVIEW: Allergy list reviewed and remains current. MEDICATIONS: Active Outpatient Medications Status 1) FLUTICASONE PROP 50MCG 120D NASAL INHL INSTILL 2 SPRAYS IN ACTIVE NOSTRIL(S) ONCE A DAY (MUST BE USED DIRECTED FOR MINIMUM OF 21 DAYS TO PROVIDE ADEQUATE BENEFITS) Indication: FOR RHINITIS 2) GABAPENTIN 300MG CAP TAKE ONE CAPSULE BY MOUTH ONCE A DAY ACTIVE Indication: FOR NERVE PAIN 3) PRAZOSIN HCL 1MG CAP TAKE ONE CAPSULE BY MOUTH ONCE A DAY ACTIVE MAY CAUSE DIZZINESS OR DROWSINESS. Indication: FOR NIGHTMARES 4) SILDENAFIL CITRATE 100MG TAB TAKE ONE-HALF TABLET BY MOUTH ACTIVE ONE HOUR PRIOR TO SEXUAL ACTIVITY NEEDED - LIMIT 6 DOSES PER 30 DAYS Indication: FOR ERECTILE DYSFUNCTION MEDICATION RECONCILIATION: I have reviewed the patient's medication list with the patient and/or his/her care-federal java developer. Handwritten corrections, additions and/or deletions were made to the list. Corrected Outpatient Medication List was provided to the patient/caregiver. REVIEW OF SYSTEMS: negative except as mentioned in HPI PHYSICAL EXAMINATION: General appearance: VITALS (most recent, as listed in the electronic record): Temperature: 98.4 F [36.9 C] (04/04/2024 10:20) BP: 126/78 (04/04/2024 10:20) Pulse: 62 (04/04/2024 10:20) Resp: 18 (04/04/2024 10:20) PulsOx: 98% (04/04/2024 10:20) Pain: 0 (04/04/2024 10:20) Weight: Measurement DT WEIGHT LB(KG)[BMI] 04/04/2024 10:20 249.6(113.22)[36*] 01/18/2024 15:32 252(114.31)[36*] 08/23/2023 12:55 241(109.32)[35*] Ears, Nose, Mouth, Throat: Normal. Eye: Normal sclera Normal PERRLA Cardiovascular: S1 S2 Nl. Respiratory: Clear ABD/GI: Normal. ASSESSMENT/PLAN: #PTSD, nightmares - continue prazosin. #EDGAR, RLS - continue management through sleep medicine. #Depression - continue management through MH. #Tobacco use - encouraged cessation. RETURN TO CLINIC: 6 months SUMMARY STATEMENT: Plan of care has been discussed with including expected therapeutic benefits and potential side effects of prescribed medication and treatments. verbalizes understanding and is in agreement with the plan of care. Patient was instructed to keep all scheduled appointments and contact locomotive oiler for any additional problems. /jordana/ JENNIE ANN DO STAFF PHYSICIAN Signed: 04/04/2024 11:[address] [facility] Apr 04, 2024 10:22 AM NURSING NOTE: LOCAL TITLE: V15 PACT FACE TO FACE NOTE STL STANDARD TITLE: NURSING NOTE DATE OF NOTE: APR 04, 2024@10:22 ENTRY DATE: APR 04, 2024@10:22:30 AUTHOR: CHAYA ALVES EXP COSIGNER: URGENCY: STATUS: COMPLETED Provider Visit: Patient Identifiers : Full Name Date of Reason for visit: Established Follow-Up Mode of Arrival: Ambulatory Allergy Review: Patient has answered NKA Allergy list reviewed and remains current. Recent Vital Signs: Temperature: 98.4 F [36.9 C] (04/04/2024 10:20) Pulse: 62 (04/04/2024 10:20) Respiration: 18 (04/04/2024 10:20) B/P: 126/78 (04/04/2024 10:20) Pain: 0 (04/04/2024 10:20) Wt: 249.6 lb [113.22 kg] (04/04/2024 10:20) Ht: 70 in [177.8 cm] (01/18/2024 15:32) BMI: 35.9 POX: 98% (04/04/2024 10:20) Would you like to discuss any personal problem, family problem, alcohol use, drug use, or a mental or emotional illness? No Contact provided Primary Care phone number and encouraged to call if any questions or concerns. Review that after hours nurse line [phone] and emergency room are available 20/09 for patient use. Contact verbalized good understanding. COVID-19 Immunization - L,N,P,PH,U: Refused Pfizer Monovalent COVID-19 vaccine Immunization: COVID-19 (PFIZER), MRNA, LNP-S, PF, DEXTER-SUCROSE, 30 MCG/0.3 ML (AGES 12+ YEARS) Refusal Reason: PATIENT DECISION Patient refuses all immunization(s) in the COVID-19 group Date Documented: 04/04/24 10:23 /jordana/ CHAYA ALVES LPN LICENSED PRACTICAL NURSE Signed: 04/04/2024 10:[address] [facility]
--- OUTSIDE RECORDS SUMMARY | 2024-10-01 07:39 | XMS_ITS | Encounter Summary ---
Author Name [facility] [place] Address [address] [place] [address] Care Team Providers Care Care Partner Name Role Phone BRISA ANN Primary Care Provider [facility] Insurance Providers: All historical [...] IN PREFERRED PROVIDER ORGANIZAT ION (PPO) [facility] Aug 29, 2023 [id number] [phone] REGINALD GOODSON PATIENT AN[employer] [employer] [place] PREFERRED PROVIDER ORGANIZAT ION (PPO) STATE [facility] Aug 29, 2023 [id number] [phone] REGINALD GOODSON PATIENT [employer] [employer] [place] PREFERRED PROVIDER ORGANIZAT ION (PPO) STATE OF [facility] Aug 29, 2023 [id number] [phone] REGINALD GOODSON PATIENT [employer] [place] PREFERRED PROVIDER ORGANIZAT ION (PPO) [facility] Aug 29, 2023 [id number] [phone] REGINALD GOODSON PATIENT [place] ([id number])RX PRESCRIPT ION [facility] Aug 29, 2023 [id number] [phone] REGINALD GOODSON PATIENT Selected Encounter This section includes the information on record at OR for the Encounter. Date/Time Encounter Type Encounter Description Reason Provider Source Jun 18, 2024 10:15 AM ACTIVITY THERAPY, PER 15 MIN RECREATION THERAPY SERVICE ICD-10-CM F41.9 Anxiety disorder, unspecified MADELINE LATIF [facility] Encounter Template Text not used by OR Assessments - Encounter Diagnoses This section includes the primary and secondary diagnoses documented for the Encounter. Date/Time Primary/Secondary Diagnosis Diagnosis Name Provider Source Jun 18, 2024 11:35 AM PRIMARY Anxiety disorder, unspecified MADELINE LATIF [facility] Plan of Treatment: Future Appointments (+ 6 months) and Future Tests (+/- 45 days) The Plan of Treatment section includes future care activities for the patient from all OR treatmentfacilities. This section includes future appointments and future orders which are active, pending or scheduled. Future Appointments This section includes appointments that were scheduled to occur 6 months from the date of the Encounter, up to a maximum of 20 appointments. The data comes from all [place] treatment facilities. Appointment Date/Time Appointment Type Appointme nt Facility Name Sep 12, 2024 10:00 AM AMBULATORY - PSYCHIATRY [facility] Oct 02, 2024 11:00 AM AMBULATORY - MEDICINE [facility] Oct 30, 2024 08:30 AM AMBULATORY - PSYCHIATRY [facility] Social History: Smoking Status (Most current) and Tobacco Use (All prior to encounter date) This section includes the most current, and the historical, smoking and tobacco- related health factors from the OR facility where the Encounter took place. Current Smoking Status This section includes the most current smoking, or tobacco-related health factor, from the OR facility where the Encounter took place. Date/Time Current Smoking Status Comment Mary Ellen penaloza Aug 23, 2023 01:00 PM VA-TOBACCO USER EVERY DAY [facility] Tobacco Use History This section includes a history of the smoking, or tobacco-related health factors, that were collected on or before the date of the Encounter. The data comes from the OR facility where the Encounter took place. 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 Date/Time Encounter Note(s) Provider Source Jun 18, 2024 10:15 AM RECREATIONAL THERA PY CONSULT: LOCAL TITLE: RT CONSULT ST STANDARD TITLE: RECREATIONAL THERAPY CONSULT DATE OF NOTE: JUN 18, 2024@10:15 ENTRY DATE: JUN 18, 2024@11:27:37 AUTHOR: MADELINE LATIF COSIGNER: JAYY DOWNING URGENCY: STATUS: COMPLETED Recreation Therapy Outpatient Consult/Treatment Plan Date: 06/18/24 Name: Piter Goodson Last 4: [id number] Cell Email: [email or web address] Age: 54 Branch of service & Years: [employer], 4 Years Referring Provider: Mari Downing Referring Diagnosis: Anxiety Disorder, unspecified(ICD-10-CM F41.9) Service Connection/Rated Disabilities [place] Percent: 80% Rated Disabilities: SLEEP APNEA SYNDROMES (50%) 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 Ashley was prompt, pleasant and cooperative during our time together. Ashley appeared to be at ease in conversation and was given a tour of the RT facilities to start off the appointment. Tosha was educated about RT programming including community events, community sponsors. Tosha was given a list of Recreation Therapy programming to take with them along with this therapists return contact information. 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 Ashley enjoys hiking and has a 5 week trip planned with his brothers in June and July. Ashley would like to start with recreation therapy after that. Ashley is also interested in learning more about photography as he enjoys taking pictures of sunrise and sunset. Ashley also enjoys taking pictures while he is out hiking. Have you heard of recreation therapy prior to this meeting? Just from my psychologist and psychiatrist. Leisure Interest What are 3 recreational activities you enjoyed doing in the past? 1. Hiking/Backpacking/Camping 2. Float trips 3. Road trips and photography What are 3 activities you are currently doing? 1. Road trips/photography 2. Hiking/backpacking/camping 3. Kayaking What is going on with you physically that may be a barrier to your free time? 1. Nerve damage on my left arm 2. Sinusitis/Rhinitis ([place]) ETOH/RECREATIONAL DRUGS: Ashley denies MODES OF TRANSPORTATION: Ashley drives himself What are your Goals for participating in recreation therapy? (X) I want to learn new leisure skills (X) I want to learn about new programs I can participate in (X) I want to become more active (X) I want to increase socialization (X) I want to increase my fitness levels (X) I want to get back out in nature (X) I would like to improve my psychological health Do any of the following apply to you? ( ) History of psychological issues: (X) Have you felt depressed, sad or blue much of the time? ( ) Have you often felt helpless about the future? (X) Have you had little interest or pleasure in doing things? (X) Have you had trouble sleeping many nights? ( ) Have you felt that you can no longer participate in activities? ( ) Do you often time feel lonely? Leisure Barriers ( ) Lack of Income ( ) Poor Physical Condition ( ) Lack of Transportation ( ) Inability to experience enjoyment (X) Lack of Time (I work M-F 7-3) (X) Isolative ( ) Lack of manager resource ( ) Low motivation to initiate activities ( ) Lack of Leisure Opportunities ( ) No interest in activities ( ) Poor Communication ( ) Poor knowledge of leisure opportunities ( ) Psychological Issues ( ) Terminal Condition What would you be interested with in RT? ( )Golf ( ) Virtual Racing (X)Kayaking ( ) Softball ( )Cycling ( ) Cross Fit (X)Hiking (X) Photography ( )Archery ( ) E-Tyler (Xbox, PS, Switch, PC) ( )Rock climbing ( ) Guitar ( )Virtual Reality (X) Art Therapy with Toyin Givens granted permission to be added to Recreation Therapy email list. This list sends out openings, surprise offerings, and any change in programming that is being offered. Recreation Therapy Tx Plan: [place] Hiking Short Term Goals: 1. Vet will download All Trails kenneth on her phone to learn about trails in the community 2. Vet will show up appropriately dressed and with hydration for hikes [employer] Supervisor Goals: 1. Vet will attend 1-3 hikes in the community with RT Team River Runner Kayaking [place] Plan Short Term Goals 1. Vet will attend 3-5 sessions learning the basic skill set 2. Vet will be able to display rows and turns upon command [employer] Supervisor Goals 1. Vet will be able to perform a wet exit from the boat 2. Vet will be able to identify 2 community resources he can use to further kayaking upon DC from RT Team Walker Runner Program /jordana/ Madeline Latif Certified Instructional Coach Signed: 06/18/2024 11:36 /es/ JAYY DOWNING PSYD Psychologist, Primary Care Cosigned: 06/18/2024 11:55 Receipt Acknowledged By: 06/22/2024 15:51 /es/ Toyin Arias Creative Arts Therapist MADELINE LATIF [facility]
--- OUTSIDE RECORDS SUMMARY | 2024-10-01 07:39 | XMS_ITS | Continuity of Care Document ---
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 It does not include entries that were removed or entered in error. Problem Status Onset Date Problem Type Date of Resolution Comments Source Allergic rhinitis Active Condition [facility] Chronic post-traumatic stress disorder Active Condition [facility] Depression Active Condition [facility] Exposure to potentially hazardous substance Active Condition [facility] Hyperlipidemia Active Condition [facility] Nightmares Active Condition [facility] Restless legs Active Condition [facility] Sleep apnea Active Condition [facility] Tinnitus Active Condition [facility] Tobacco use Active Condition [facility] Diagnosis: ICD-10-CM F43.12 Post-traumatic stress disorder, chronic Active Diagnosis [facility] Diagnosis: ICD-10-CM F41.9 Anxiety disorder, unspecified Active Diagnosis [facility] Diagnosis: ICD-10-CM Z02.5 Encounter for examination for participation in sport Active Diagnosis [facility] Diagnosis: ICD-10-CM 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 Diagnosis: ICD-10-CM F51.5 Nightmare disorder Active Diagnosis [facility] Diagnosis: ICD-10-CM G47.00 Insomnia, unspecified Active Diagnosis [facility] Diagnosis: ICD-10-CM L98.9 Disorder of the skin and subcutaneous tissue, unspecified Active Diagnosis [facility] Medications Combined list of outpatient medications from Department of Defense and Veterans Affairs facilities.Medications provided include 1) outpatient medications from the last 15 months, and 2) patient-reported medications. Medication Details Route Status Patient Instructions Prescription Expires Prescription Number Last Dispense Date Ordering Provider Order Date Order Qty Source BUPROPION HCL 150MG 24HR TAB,SA TAKE ONE TABLET BY MOUTH ONCE A DAY SWALLOW WHOLE - DO NOT CRUSH OR CHEW. ORAL 08/28/2024 [id number] EDVIN SOUZA [address] [facility] BUPROPION HCL 300MG 24HR TAB,SA TAKE ONE TABLET BY MOUTH ONCE A DAY SWALLOW WHOLE - DO NOT CRUSH OR CHEW. ORAL ACTIVE 09/13/2025 [id number] 5 EDVIN SOUZA [address] [facility] BUPROPION HCL 75MG TAB TAKE ONE TABLET BY MOUTH EVERY MORNING FOR DEPRESSI ON ORAL DISCONT INUED BY PROVIDE R 05/02/2025 [id number] 5 EDVIN SOUZA [address] [facility] FLUTICASONE PROPIONATE 50MCG/SPRAY SOLN,NASAL, 16GM INSTILL 2 SPRAYS IN NOSTRIL( S) ONCE A DAY (MUST BE USED DIRECTED FOR MINIMUM OF 21 DAYS TO PROVIDE ADEQUATE BENEFITS ) NASAL ACTIVE 04/15/2025 [id number] JANES ANN [address] [facility] FLUTICASONE PROPIONATE 50MCG/SPRAY SOLN,NASAL, 16GM INSTILL 2 SPRAYS IN NOSTRIL( S) ONCE A DAY (MUST BE USED DIRECTED FOR MINIMUM OF 21 DAYS TO PROVIDE ADEQUATE BENEFITS ) NASAL DISCONT INUED 08/23/2024 [id number] JANES ANN [address] [facility] Jose Cruz GABAPENTIN 300MG CAP TAKE ONE CAPSULE BY MOUTH ONCE A DAY FOR NERVE PAIN ORAL ACTIVE 11/24/2024 [id number] 5 JANES ANN [address] [facility] Jose Cruz PRAZOSIN HCL 1MG CAP TAKE ONE CAPSULE BY MOUTH ONCE A DAY MAY CAUSE DIZZINES S OR DROWSINE SS. ORAL DISCONT INUED (EDIT) 01/18/2025 [id number] JANES ANN [address] [facility] Jose Cruz PRAZOSIN HCL 2MG CAP TAKE ONE CAPSULE BY MOUTH AT BEDTIME NEEDED FOR NIGHTMAR ES MAY CAUSE DIZZINES S OR DROWSINE SS. ORAL SUSPEND ED 05/02/2025 [id number] EDVIN SOUZA [address] [facility] Jose Cruz SILDENAFIL CITRATE 100MG TAB TAKE ONE-HALF TABLET BY MOUTH ONE HOUR PRIOR TO SEXUAL ACTIVITY FOR ERECTILE DYSFUNCT ION NEEDED - LIMIT 6 DOSES PER 30 DAYS ORAL ACTIVE 01/18/2025 [id number] 5 JANES ANN [address] [facility] SULFAMETHOX AZOLE 800MG/TRIME THOPRIM 160MG TAB TAKE 1 TABLET BY MOUTH EVERY 12 HOURS FOR 10 DAYS FOR SKIN OR SOFT TISSUE INFECTIO N TAKE WITH WATER/AV OID SUNLIGHT . ORAL 09/22/2023 [id number] JANES ANN [address] [facility] Immunizations Combined list of available immunizations from the Department of Defense and [facility] Affairs facilities. Immunization Series Date Given Administered By Site Reaction Lot Number CVX Code Drug Supervisor Fishing Status Comments Source INFLUENZA, SPLIT VIRUS, TRIVALENT, PF 2024 CHAYA ALVES RIGHT DELTO ID [id number] 140 complet ed [facility] ZOSTER RECOMBINANT 1 2024 CHAYA ALVES LEFT DELTO ID [id number] 187 complet ed [facility] PNEUMOCOCCAL CONJUGATE PCV20, POLYSACCHARID E [id number] CONJUGATE, ADJUVANT, PF 2023,MAY D RIGHT DELTO ID [id number] 216 complet ed [facility]MIN[facility] TDAP 1 2022 115 complet ed HISTORICA L INFORMATI ON - FROM OTHER REGISTRY, [facility] Results Combined list of recent chemistry, hematology and other laboratory results from Department of Defense and Veterans Affairs, ranging from 15 months to all on record, depending upon the facility. Order Name Results Value Reference Range Date Interpretation Specimen Comments Source [place] FREE PANEL TESTOSTERO NE [MASS/VOLU ME] IN SERUM OR PLASMA 426 ng/dL 250 - 1100 05/01 Specimen Type: SERUM Comment: For additional information , please refer to http://educ ation.TrillTip .com/faq/ TotalTestos teroneLCMSM [id number] (This link is being provided for information al/ educational purposes only.) This test was developed and its analytical performance characteris tics have been determined by [employer] [place], [place]. It has not been cleared or approved by the U.S. Food and Drug Administrat ion. This assay has been validated pursuant to the CLIA regulations and is used for clinical purposes. Test Performed by [facility], [facility], [address] [place], [place] Dewey Rhoades M.D., Ph.D., Director of Laboratorie s , CLIA [id number] Ordering Provider: LESIA ANN Report Released Date/Time: Apr 04, 2024 11:00 AM Reporting Lab: [facility] [address] [facility] [address] Performing Lab: [facility] [address] [facility] TESTOSTE SANGEETA, FREE PANEL ALBUMIN [MASS/VOLU ME] IN SERUM OR PLASMA 4.1 g/dL 3.6 - 5.1 05/01 Specimen Type: SERUM Comment: For additional information , please refer to http://Code42.[employer]/faq/ TotalTestos teroneLCMSM [email or web address] (This link is being provided for information al/ educational purposes only.) This test was developed and its analytical performance characteris tics have been determined by [employer] [place], [place]. It has not been cleared or approved by the U.S. Food and Drug Administrat ion. This assay has been validated pursuant to the CLIA regulations and is used for clinical purposes. Test Performed by [facility], [address] [place] [address] Dewey Rhoades M.D., Ph.D., Director of Laboratorie s , CLIA [id number] Ordering Provider: LESIA ANN Report Released Date/Time: Apr 04, 2024 11:00 AM Reporting Lab: [facility] [address] [facility] [address] Performing Lab: [facility] [id number] [place] [address] [facility] TESTOSTE SANGEETA, FREE PANEL TESTOSTERO NE FREE [MASS/VOLU ME] IN SERUM OR PLASMA 47.8 pg/mL 46.0 - 224.0 05/01 Specimen Type: SERUM Comment: For additional information , please refer to http://educ TalkSession.TrillTip .ScribbleLive/faq/ TotalTestos teroneLCMSM [id number] (This link is being provided for information al/ educational purposes only.) This test was developed and its analytical performance characteris tics have been determined by [employer] [place], [place]. It has not been cleared or approved by the U.S. Food and Drug Administrat ion. This assay has been validated pursuant to the CLIA regulations and is used for clinical purposes. Test Performed by [facility] [employer], [address] [place] [address] Dewey Rhoades M.D., Ph.D., Director of Laboratorie s , CLIA [id number] Ordering Provider: LESIA ANN Report Released Date/Time: Apr 04, 2024 11:00 AM Reporting Lab: [address] [address] Performing Lab: [address] [facility] TESTOSTE SANGEETA, FREE PANEL TESTOSTERO NE.FREE+WE AKLY BOUND [MASS/VOLU ME] IN SERUM OR PLASMA 89.9 ng/dL 110.0 - 575.0 05/01 L Specimen Type: SERUM Comment: For additional information , please refer to http://Code42.[employer]/faq/ TotalTestos teroneLCMSM [email or web address] (This link is being provided for information al/ educational purposes only.) This test was developed and its analytical performance characteris tics have been determined by [employer] [place], [place]. It has not been cleared or approved by the U.S. Food and Drug Administrat ion. This assay has been validated pursuant to the CLIA regulations and is used for clinical purposes. Test Performed by [facility], [facility], [address] [place] [address] Dewey Rhoades M.D., Ph.D., Director of Laboratorie s , CLIA [id number] Ordering Provider: LESIA ANN Report Released Date/Time: Apr 04, 2024 11:00 AM Reporting Lab: [address] [address] Performing Lab: [address] [facility] TESTOSTE SANGEETA, FREE PANEL SEX HORMONE BINDING GLOBULIN [MOLES/VOL UME] IN SERUM OR PLASMA 41 nmol/L 10 - 50 05/01 Specimen Type: SERUM Comment: For additional information , please refer to http://educ TalkSession.[employer]/faq/ TotalTestos teroneLCMSM [id number] (This link is being provided for information al/ educational purposes only.) This test was developed and its analytical performance characteris tics have been determined by [employer] [place], [place]. It has not been cleared or approved by the U.S. Food and Drug Administrat ion. This assay has been validated pursuant to the CLIA regulations and is used for clinical purposes. Test Performed by [facility], [facility], [address] [place], [place] Dewey Rhoades M.D., Ph.D., Director of Laboratorie s , CLIA [id number] Ordering Provider: LESIA ANN Report Released Date/Time: Apr 04, 2024 11:00 AM Reporting Lab: [address] [address] Performing Lab: [facility] [address] [facility] HIV COMBO FOURTH GENERATI ON (STL) HIV 1+2 AB+HIV1 P24 AG [PRESENCE] IN SERUM OR PLASMA BY IMMUNOASSA Y Nonreact marysol 08/22 Specimen Type: SERUM No comment entered. Ordering Provider: LESIA ANN Report Released Date/Time: Aug 23, 2023 02:03 PM Reporting Lab: [address] [address] Performing Lab: [address] [address] [facility] COMPREHE NSIVE METABOLI C PANEL CREATININE [MASS/VOLU ME] IN SERUM OR PLASMA 1.09 mg/dL 0.70 - 1.30 08/22 Specimen Type: PLASMA Comment: No hemolysis noted. Ordering Provider: LESIA ANN Report Released Date/Time: Aug 23, 2023 02:03 PM Reporting Lab: [facility] [facility] [address] Performing Lab: [facility] [facility] [id number] [place] [address] DIVISION COMPREHE NSIVE METABOLI C PANEL UREA NITROGEN [MASS/VOLU ME] IN SERUM OR PLASMA 9.1 mg/dL 9.0 - 25.0 08/22 Specimen Type: PLASMA Comment: No hemolysis noted. Ordering Provider: LESIA ANN SAY Report Released Date/Time: Aug 23, 2023 02:03 PM Reporting Lab: [facility] [place] [address] Performing Lab: [facility] DIVISION COMPREHE NSIVE METABOLI C PANEL GLUCOSE [MASS/VOLU ME] IN SERUM OR PLASMA 94 mg/dL 72 - 99 08/22 Specimen Type: PLASMA Comment: No hemolysis noted. Ordering Provider: LESIA ANN SAY Report Released Date/Time: Aug 23, 2023 02:03 PM Reporting Lab: [facility] [place] [address] Performing Lab: [facility] DIVISION COMPREHE NSIVE METABOLI C PANEL SODIUM [MOLES/VOL UME] IN SERUM OR PLASMA 140 meq/L 136 - 145 08/22 Specimen Type: PLASMA Comment: No hemolysis noted. Ordering Provider: LESIA ANN SAY Report Released Date/Time: Aug 23, 2023 02:03 PM Reporting Lab: [facility] [place] [address] Performing Lab: [facility] DIVISION COMPREHE NSIVE METABOLI C PANEL POTASSIUM [MOLES/VOL UME] IN SERUM OR PLASMA 4.1 meq/L 3.5 - 5.0 08/22 Specimen Type: PLASMA Comment: No hemolysis noted. Ordering Provider: LESIA ANN SAY Report Released Date/Time: Aug 23, 2023 02:03 PM Reporting Lab: [facility] [place] [address] Performing Lab: [facility] DIVISION COMPREHE NSIVE METABOLI C PANEL CHLORIDE [MOLES/VOL UME] IN SERUM OR PLASMA 103 meq/L 98 - 107 08/22 Specimen Type: PLASMA Comment: No hemolysis noted. Ordering Provider: LESIA ANN SAY Report Released Date/Time: Aug 23, 2023 02:03 PM Reporting Lab: [facility] [place] [address] Performing Lab: [facility] DIVISION COMPREHE NSIVE METABOLI C PANEL CARBON DIOXIDE, TOTAL [MOLES/VOL UME] IN SERUM OR PLASMA 25 meq/L 22 - 31 08/22 Specimen Type: PLASMA Comment: No hemolysis noted. Ordering Provider: LESIA ANN SAY Report Released Date/Time: Aug 23, 2023 02:03 PM Reporting Lab: [facility] [place] [address] Performing Lab: [facility] DIVISION COMPREHE NSIVE METABOLI C PANEL CALCIUM [MASS/VOLU ME] IN SERUM OR PLASMA 9.3 mg/dL 8.4 - 10.4 08/22 Specimen Type: PLASMA Comment: No hemolysis noted. Ordering Provider: LESIA ANN SAY Report Released Date/Time: Aug 23, 2023 02:03 PM Reporting Lab: [facility] [place] [address] Performing Lab: [facility] DIVISION COMPREHE NSIVE METABOLI C PANEL PROTEIN [MASS/VOLU ME] IN SERUM OR PLASMA 7.6 g/dL 6.0 - 8.6 08/22 Specimen Type: PLASMA Comment: No hemolysis noted. Ordering Provider: LESIA ANN SAY Report Released Date/Time: Aug 23, 2023 02:03 PM Reporting Lab: [facility] [place] [address] Performing Lab: [facility] DIVISION COMPREHE NSIVE METABOLI C PANEL ALBUMIN [MASS/VOLU ME] IN SERUM OR PLASMA 4.4 g/dL 3.4 - 5.0 08/22 Specimen Type: PLASMA Comment: No hemolysis noted. Ordering Provider: LESIA ANN SAY Report Released Date/Time: Aug 23, 2023 02:03 PM Reporting Lab: [facility] [place] [address] Performing Lab: [facility] DIVISION COMPREHE NSIVE METABOLI C PANEL BILIRUBIN. TOTAL [MASS/VOLU ME] IN SERUM OR PLASMA 0.7 mg/dL 0.2 - 1.2 08/22 Specimen Type: PLASMA Comment: No hemolysis noted. Ordering Provider: LESIA ANN SAY Report Released Date/Time: Aug 23, 2023 02:03 PM Reporting Lab: [facility] [place] [address] Performing Lab: [facility] DIVISION COMPREHE NSIVE METABOLI C PANEL ALKALINE PHOSPHATAS E [ENZYMATIC ACTIVITY/V OLUME] IN SERUM OR PLASMA 97 U/L 40 - 150 08/22 Specimen Type: PLASMA Comment: No hemolysis noted. Ordering Provider: LESIA ANN SAY Report Released Date/Time: Aug 23, 2023 02:03 PM Reporting Lab: [facility] [place] [address] Performing Lab: [facility] [address] DIVISION COMPREHE NSIVE METABOLI C PANEL ASPARTATE AMINOTRANS FERASE [ENZYMATIC ACTIVITY/V OLUME] IN SERUM OR PLASMA 33 U/L 5 - 34 08/22 Specimen Type: PLASMA Comment: No hemolysis noted. Ordering Provider: LESIA ANN SAY Report Released Date/Time: Aug 23, 2023 02:03 PM Reporting Lab: [facility] [place] [address] Performing Lab: [facility] DIVISION COMPREHE NSIVE METABOLI C PANEL ALANINE AMINOTRANS FERASE [ENZYMATIC ACTIVITY/V OLUME] IN SERUM OR PLASMA 29 U/L 8 - 40 08/22 Specimen Type: PLASMA Comment: No hemolysis noted. Ordering Provider: LESIA ANN SAY Report Released Date/Time: Aug 23, 2023 02:03 PM Reporting Lab: [facility] [place] [address] Performing Lab: [facility] DIVISION COMPREHE NSIVE METABOLI C PANEL GLOMERULAR FILTRATION RATE/1.73 SQ M.PREDICTE D [VOLUME RATE/AREA] IN SERUM, PLASMA OR BLOOD BY CREATININE -BASED FORMULA (CKD-EPI 2020) 80.15 60 08/22 Specimen Type: PLASMA Comment: No hemolysis noted. Ordering Provider: LESIA ANN SAY Report Released Date/Time: Aug 23, 2023 02:03 PM Reporting Lab: [facility] [place] [address] Performing Lab: [facility] DIVISION LIPID PANEL (STL) CHOLESTERO L [MASS/VOLU ME] IN SERUM OR PLASMA 220 mg/dL 0 - 200 08/22 H Specimen Type: PLASMA Comment: No hemolysis noted. Ordering Provider: LESIA ANN SAY Report Released Date/Time: Aug 23, 2023 02:03 PM Reporting Lab: [facility] [place] [address] Performing Lab: [facility] LIPID PANEL (STL) TRIGLYCERI DE [MASS/VOLU ME] IN SERUM OR PLASMA 99 mg/dL 0 - 150 08/22 Specimen Type: PLASMA Comment: No hemolysis noted. Ordering Provider: LESIA ANN SAY Report Released Date/Time: Aug 23, 2023 02:03 PM Reporting Lab: [facility] [place] [address] Performing Lab: [facility] LIPID PANEL (STL) CHOLESTERO L IN LDL [MASS/VOLU ME] IN SERUM OR PLASMA BY CALCULATIO N 129 mg/dL 08/22 Specimen Type: PLASMA Comment: No hemolysis noted. Ordering Provider: LESIA ANN SAY Report Released Date/Time: Aug 23, 2023 02:03 PM Reporting Lab: [facility] [place] [address] Performing Lab: [facility] LIPID PANEL (STL) CHOLESTERO L IN HDL [MASS/VOLU ME] IN SERUM OR PLASMA 71 mg/dL 40 08/22 Specimen Type: PLASMA Comment: No hemolysis noted. Ordering Provider: LESIA ANN SAY Report Released Date/Time: Aug 23, 2023 02:03 PM Reporting Lab: [facility] [place] [address] Performing Lab: [facility] DIVISION CBC LEUKOCYTES [#/VOLUME] IN BLOOD BY AUTOMATED COUNT 6.4 10*3/uL 3.6 - 11.2 08/22 Specimen Type: BLOOD No comment entered. Ordering Provider: LESIA ANN SAY Report Released Date/Time: Aug 23, 2023 02:03 PM Reporting Lab: [facility] [place] [address] Performing Lab: [facility] [id number] DIVISION CBC ERYTHROCYT ES [#/VOLUME] IN BLOOD BY AUTOMATED COUNT 4.68 10*6/uL 4.10 - 5.70 08/22 Specimen Type: BLOOD No comment entered. Ordering Provider: LESIA ANN SAY Report Released Date/Time: Aug 23, 2023 02:03 PM Reporting Lab: [facility] [place] [address] Performing Lab: [facility] CBC HEMOGLOBIN [MASS/VOLU ME] IN BLOOD 15.3 g/dL 13.1 - 16.8 08/22 Specimen Type: BLOOD No comment entered. Ordering Provider: LESIA ANN SAY Report Released Date/Time: Aug 23, 2023 02:03 PM Reporting Lab: [facility] [place] [address] Performing Lab: [facility] CBC HEMATOCRIT [VOLUME FRACTION] OF BLOOD 44.4 38.2 - 48.4 08/22 Specimen Type: BLOOD No comment entered. Ordering Provider: LESIA ANN SAY Report Released Date/Time: Aug 23, 2023 02:03 PM Reporting Lab: [facility] [place] [address] Performing Lab: [facility] CBC MCV [ENTITIC VOLUME] BY AUTOMATED COUNT 94.9 fL 80.0 - 100.0 08/22 Specimen Type: BLOOD No comment entered. Ordering Provider: LESIA ANN SAY Report Released Date/Time: Aug 23, 2023 02:03 PM Reporting Lab: [facility] [place] [address] Performing Lab: [facility] DIVISION CBC MCH [ENTITIC MASS] BY AUTOMATED COUNT 32.7 pg 27.0 - 34.0 08/22 Specimen Type: BLOOD No comment entered. Ordering Provider: LESIA ANN SAY Report Released Date/Time: Aug 23, 2023 02:03 PM Reporting Lab: [facility] [place] [address] Performing Lab: [facility] DIVISION CBC MCHC [MASS/VOLU ME] BY AUTOMATED COUNT 34.5 g/dL 33.0 - 36.0 08/22 Specimen Type: BLOOD No comment entered. Ordering Provider: LESIA ANN SAY Report Released Date/Time: Aug 23, 2023 02:03 PM Reporting Lab: [facility] [place] [address] Performing Lab: [facility] DIVISION CBC PLATELETS [#/VOLUME] IN BLOOD BY AUTOMATED COUNT 219 10*3/uL 150 - 400 08/22 Specimen Type: BLOOD No comment entered. Ordering Provider: LESIA ANN SAY Report Released Date/Time: Aug 23, 2023 02:03 PM Reporting Lab: [facility] [place] [address] Performing Lab: [facility] DIVISION CBC PLATELET MEAN VOLUME [ENTITIC VOLUME] IN BLOOD BY AUTOMATED COUNT 8.5 fL 7.5 - 11.2 08/22 Specimen Type: BLOOD No comment entered. Ordering Provider: LESIA ANN SAY Report Released Date/Time: Aug 23, 2023 02:03 PM Reporting Lab: [facility] [place] [address] Performing Lab: [facility] DIVISION CBC ERYTHROCYT E DISTRIBUTI ON WIDTH [RATIO] BY AUTOMATED COUNT 12.5 11.8 - 15.1 08/22 Specimen Type: BLOOD No comment entered. Ordering Provider: LESIA ANN SAY Report Released Date/Time: Aug 23, 2023 02:03 PM Reporting Lab: [facility] [place] [address] Performing Lab: [facility] DIVISION CBC LYMPHOCYTE S/100 LEUKOCYTES IN BLOOD BY AUTOMATED COUNT 27 08/22 Specimen Type: BLOOD No comment entered. Ordering Provider: LESIA ANN SAY Report Released Date/Time: Aug 23, 2023 02:03 PM Reporting Lab: [facility] [place] [address] Performing Lab: [facility] DIVISION CBC MONOCYTES/ 100 LEUKOCYTES IN BLOOD BY AUTOMATED COUNT 10 08/22 Specimen Type: BLOOD No comment entered. Ordering Provider: LESIA ANN SAY Report Released Date/Time: Aug 23, 2023 02:03 PM Reporting Lab: [facility] [place] [address] Performing Lab: [facility] DIVISION CBC NEUTROPHIL S/100 LEUKOCYTES IN BLOOD BY AUTOMATED COUNT 58 08/22 Specimen Type: BLOOD No comment entered. Ordering Provider: LESIA ANN SAY Report Released Date/Time: Aug 23, 2023 02:03 PM Reporting Lab: [facility] [address] Performing Lab: [facility] DIVISION CBC EOSINOPHIL S/100 LEUKOCYTES IN BLOOD BY AUTOMATED COUNT 3 08/22 Specimen Type: BLOOD No comment entered. Ordering Provider: LESIA ANN SAY Report Released Date/Time: Aug 23, 2023 02:03 PM Reporting Lab: [facility] [place] [address] Performing Lab: [facility] DIVISION CBC BASOPHILS/ 100 LEUKOCYTES IN BLOOD BY AUTOMATED COUNT 1 08/22 Specimen Type: BLOOD No comment entered. Ordering Provider: LESIA ANN SAY Report Released Date/Time: Aug 23, 2023 02:03 PM Reporting Lab: [facility] [place] [address] Performing Lab: [facility] DIVISION CBC LYMPHOCYTE S [#/VOLUME] IN BLOOD BY AUTOMATED COUNT 1.75 10*3/uL 0.77 - 4.50 08/22 Specimen Type: BLOOD No comment entered. Ordering Provider: LESIA ANN SAY Report Released Date/Time: Aug 23, 2023 02:03 PM Reporting Lab: [facility] [place] [address] Performing Lab: [facility] DIVISION CBC MONOCYTES [#/VOLUME] IN BLOOD BY AUTOMATED COUNT 0.66 10*3/uL 0.19 - 0.80 08/22 Specimen Type: BLOOD No comment entered. Ordering Provider: LESIA ANN SAY Report Released Date/Time: Aug 23, 2023 02:03 PM Reporting Lab: [facility] [place] [address] Performing Lab: [facility] DIVISION CBC NEUTROPHIL S [#/VOLUME] IN BLOOD BY AUTOMATED COUNT 3.71 10*3/uL 2.10 - 8.00 08/22 Specimen Type: BLOOD No comment entered. Ordering Provider: LESIA ANN SAY Report Released Date/Time: Aug 23, 2023 02:03 PM Reporting Lab: [facility] [place] [address] Performing Lab: [facility] DIVISION CBC EOSINOPHIL S [#/VOLUME] IN BLOOD BY AUTOMATED COUNT 0.16 10*3/uL 0.00 - 0.60 08/22 Specimen Type: BLOOD No comment entered. Ordering Provider: LESIA ANN SAY Report Released Date/Time: Aug 23, 2023 02:03 PM Reporting Lab: [facility] [place] [address] Performing Lab: [facility] DIVISION CBC BASOPHILS [#/VOLUME] IN BLOOD BY AUTOMATED COUNT 0.08 10*3/uL 0.00 - 0.20 08/22 Specimen Type: BLOOD No comment entered. Ordering Provider: LESIA ANN SAY Report Released Date/Time: Aug 23, 2023 02:03 PM Reporting Lab: [facility] [place] [address] Performing Lab: [facility] DIVISION HGA1C HEMOGLOBIN A1C/HEMOGL OBIN.TOTAL IN BLOOD 5.6 4.0 - 6.0 08/22 Specimen Type: BLOOD No comment entered. Ordering Provider: LESIA ANN SAY Report Released Date/Time: Aug 23, 2023 02:03 PM Reporting Lab: [facility] [id number] Performing Lab: [facility] TSH W/ REFLEX FT4 (STL) THYROTROPI N [UNITS/VOL UME] IN SERUM OR PLASMA 1.216 u[IU]/mL 0.470 - 5.000 08/22 Specimen Type: PLASMA No comment entered. Ordering Provider: LESIA ANN SAY Report Released Date/Time: Aug 23, 2023 02:03 PM Reporting Lab: [facility] [place] [address] Performing Lab: [facility] HEP C Ab HCV Ab (STL) HEPATITIS C VIRUS AB [PRESENCE] IN SERUM Nonreact marysol 08/22 Specimen Type: SERUM No comment entered. Ordering Provider: LESIA ANN SAY Report Released Date/Time: Aug 23, 2023 02:03 PM Reporting Lab: [address] [address] Performing Lab: [address] [id number] [place] [address] PROST. SPECIFIC AG.(PB-S TL) PROSTATE SPECIFIC AG [MASS/VOLU ME] IN SERUM OR PLASMA 0.473 ng/mL 0 - 4 08/22 Specimen Type: SERUM Comment: The listed sex of this patient may not be a typical indication for this test. Therefore, reference ranges or interpretiv e criteria listed may not be valid. Clinical correlation suggested. Ordering Provider: LESIA ANN SAY Report Released Date/Time: Aug 23, 2023 03:25 PM Reporting Lab: [address] [address] Performing Lab: [address] [address] [facility] Vital Signs Combined list of inpatient and outpatient Vital Signs from Department of Defense and Veterans Affairs, ranging from 12 months to all on record, depending upon the facility. Vital Sign Value Date Comments Source SYSTOLIC BLOOD PRESSURE 126 04/04/2024 10:20:03 [facility] DIASTOLIC BLOOD PRESSURE 78 04/04/2024 10:20:03 [facility] PULSE OXIMETRY 98 04/04/2024 10:20:03 [facility] WEIGHT 249.6 04/04/2024 10:20:03 [facility] BMI 36 kg/m2 04/04/2024 10:20:03 [facility] PAIN 0 04/04/2024 10:20:03 [facility] TEMPERATURE 98.4 04/04/2024 10:20:03 [facility] PULSE 62 04/04/2024 10:20:03 [facility] RESPIRATION 18 04/04/2024 10:20:03 [facility] SYSTOLIC BLOOD PRESSURE 128 01/18/2024 15:32:01 [facility] DIASTOLIC BLOOD PRESSURE 76 01/18/2024 15:32:01 [facility] PULSE OXIMETRY 95 01/18/2024 15:32:01 [facility] WEIGHT 252 01/18/2024 15:32:01 [facility] BMI 36 kg/m2 01/18/2024 15:32:01 [facility] PAIN 0 01/18/2024 15:32:01 [facility] HEIGHT 70 01/18/2024 15:32:01 [facility] TEMPERATURE 98.9 01/18/2024 15:32:01 [facility] PULSE 88 01/18/2024 15:32:01 [facility] RESPIRATION 20 01/18/2024 15:32:01 [facility] Encounters Combined list of: 1) Encounters from Department of [facility] Affairs facilities going backup to the last 18 months, not all VA inpatient encounters are included; 2) Encounters from the Department of [facility] facilities going backup to 280 months. Location Location Details Encounter Type Encounter Number Reason For Visit Attending Provider ADM Date DC Date Status Disposition Source [facility] Outpatient Encounter [id number] 07/20 [facility] Outpatient Encounter [id number] 08/03 [facility] Outpatient Encounter [id number] 08/21 [facility] Outpatient Encounter [id number] 08/22 [facility] O/P NEW MOD 45 MIN [id number] Diagnos is: ICD-10- CM L98.9 Disorde r of the skin and subcuta neous tissue, unspeci fied KRIS ANN 08/22 [facility] Outpatient Encounter [id number] 08/22 [facility] Outpatient Encounter [id number] 08/23 [facility] Outpatient Encounter [id number] 09/15 [facility] PSYTX W PT 30 MINUTES [id number] Diagnos is: ICD-10- CM F32.A Depress ion, unspeci fied MILLY JAMES NNIFER A 09/15 [facility] PSYTX W PT 30 MINUTES [id number] Diagnos is: ICD-10- CM G47.00 Insomni a, unspeci fied MILLY JAMES NNIFER A 09/25 [facility] Outpatient Encounter [id number] KRIS ANN DELILAHY 10/03 [facility] PSYTX W PT 30 MINUTES [id number] Diagnos is: ICD-10- CM G47.00 Insomni a, unspeci fied MILLY JAMES NNIFER A 10/20 [facility] Outpatient Encounter [id number] 11/21 [facility] Outpatient Encounter [id number] 11/22 [facility] Outpatient Encounter [id number] 11/22 [facility] PSYTX W PT 30 MINUTES [id number] Diagnos is: ICD-10- CM G47.00 Insomni a, unspeci fied GUERRERO RODRIGUEZ E 12/15 [facility] Outpatient Encounter [id number] 12/15 [facility] Outpatient Encounter [id number] VALENTINA CASTILLO T 12/18 [facility] Outpatient Encounter [id number] 12/20 [facility] Outpatient Encounter [id number] 12/20 [facility] POS AIRWAY PRESSURE CPAP [id number] Diagnos is: ICD-10- CM G47.39 Other sleep apnea REGINALD COOPER MD 12/21 [facility] Outpatient Encounter [id number] [facility] CASTILLO T 01/05 [facility] O/P EST MOD 30 MIN [id number] Diagnos is: ICD-10- CM F51.5 Nightma re RKIS GreshamY 01/17 [facility] Outpatient Encounter [id number] 01/19 [facility] PSYTX W PT 30 MINUTES [id number] Diagnos is: ICD-10- CM F43.9 Reactio n to severe stress, unspeci GUERRERO Manzano 02/07 [facility] Outpatient Encounter [id number] 02/07 [facility] Outpatient Encounter [id number] 02/23 [facility] Outpatient Encounter [id number] 03/02 [facility] PATH CLIN CONSLTJ MOD 21-40 [id number] Diagnos is: ICD-10- CM F32.A Depress ion, unspeci fied MANJU,WAR RUTH G III 03/15 [facility] Outpatient Encounter [id number] VALENTINA CASTILLO T 03/16 [facility] Outpatient Encounter [id number] 03/16 [facility] Outpatient Encounter [id number] 03/21 [facility] Outpatient Encounter [id number] VALENTINA CASTILLO T 03/21 [facility] OFFICE O/P EST MOD 30 MIN [id number] Diagnos is: ICD-10- CM G47.39 Other sleep apnea KIRS ANN 04/04 [facility] Outpatient Encounter [id number] 05/01 [facility] OFFICE O/P NEW MOD 45 MIN [id number] Diagnos is: ICD-10- CM F43.12 Post-tr aumatic stress disorde r, Heladio Connelly 05/01 [facility] Outpatient Encounter [id number] 05/01 [facility] Outpatient Encounter [id number] JULIET SEVILLA M 05/07 [facility] Outpatient Encounter [id number] UMM PARRA M 05/08 [facility] Outpatient Encounter [id number] 05/08 [facility] Outpatient Encounter [id number] MARTINEZ ULLOA ORAH A 05/09 [facility] Outpatient Encounter [id number] CONDOR,MARTINEZ ORAH A 05/09 [facility] Outpatient Encounter [id number] [id number] JUANIOR,MARTINEZ ORAH A 05/09 [facility] PSYCH DIAGNOSTIC EVALUATION [id number] Diagnos is: ICD-10- CM F32.89 Other specifi ed depress marysol episode s JACKELIN,CHR ISTOPHER KANWAL 05/10 [facility] Outpatient Encounter [id number] VALENTINA CASTILLO 05/11 [facility] Outpatient Encounter [id number] Diagnos is: ICD-10- CM E29.1 Testicu lar hypofun ction NASEER,HUM AIRA 05/11 [facility] O/P EST MOD 30 MIN [id number] Diagnos is: ICD-10- CM F43.12 Post-tr aumatic stress disorde r, chronic ALIZADEH,A JANES 05/30 [facility] Outpatient Encounter [id number] 06/12 [facility] EDU&TRN PT SLF-MGMT NQHP 2-4 [id number] Diagnos is: ICD-10- CM Z02.5 Encount er for examina tion for partici pation in sport Gaudencio LATIF P 06/18 [facility] ACTIVITY THERAPY, PER 15 MIN [id number] Diagnos is: ICD-10- CM F41.9 Anxiety disorde r, unspeci fied Gaudencio LATIF P 06/18 [facility] OFFICE O/P EST MOD 30 MIN [id number] Diagnos is: ICD-10- CM F43.12 Post-tr aumatic stress disorde r, chronic ALIZADEH,A LI 09/12 [facility] Outpatient Encounter [id number] CRISTÓBAL CANTU D 09/12 [facility] Outpatient Encounter [id number] JACKY VALENCIA 09/25 [facility] Social History Combined list of available smoking, tobacco, and other social history from Department of Defense and Veterans Affairs facilities. Social History Type Response Date Comment Sourc e Tobacco smoking status NHIS VA-TOBACCO USER EVERY DAY 08/23/2023 [facility] History of tobacco use VA-TOBACCO DOESNT USE WI 30 MIN WAKEUP 08/23/2023 [facility] Plan of Care List of future care activities from Department of Veterans Affairs facilities. Additional future care activities may be listed in the Assessment and Plan section. Date/Time Care Activity Care Activity Detail Facili ty 10/02/2024 AMBULATORY - MEDICINE AMBULATORY - MEDICI NE [facility]
--- OUTSIDE RECORDS SUMMARY | 2024-10-01 08:55 | XMS_ITS | Continuity of Care Document ---
Author Name [facility] Organization [facility] Care Team Providers Care Security Team Lead Name Role Phone [facility] Unavailable Unavailable Problems Combined list of problems from Department of Defense and [facility] Affairs facilities. It does not include entries that were removed or entered in error. Problem Status Onset Date Problem Type Date of Resolution Comments Source Allergic rhinitis Active Condition [facility] Chronic post-traumatic stress disorder Active Condition [facility] Depression Active Condition [facility] Exposure to potentially hazardous substance Active Condition [facility] Hyperlipidemia Active Condition [facility] Nightmares Active Condition [facility] Restless legs Active Condition [facility] Sleep apnea Active Condition [facility] Tinnitus Active Condition [facility] Tobacco use Active Condition [facility] Diagnosis: ICD-10-CM F43.12 Post-traumatic stress disorder, chronic Active Diagnosis [facility] Diagnosis: ICD-10-CM F41.9 Anxiety disorder, unspecified Active Diagnosis [facility] Diagnosis: ICD-10-CM Z02.5 Encounter for examination for participation in sport Active Diagnosis [facility] Diagnosis: ICD-10-CM 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 Diagnosis: ICD-10-CM F51.5 Nightmare disorder Active Diagnosis [facility] Diagnosis: ICD-10-CM G47.00 Insomnia, unspecified Active Diagnosis [facility] Diagnosis: ICD-10-CM L98.9 Disorder of the skin and subcutaneous tissue, unspecified Active Diagnosis [facility] Medications Combined list of outpatient medications [...] DO NOT CRUSH OR CHEW. ORAL 08/28/2024 [id number] EDVIN SOUZA 2024 90 [facility] BUPROPION HCL 300MG 24HR TAB,SA TAKE ONE TABLET BY MOUTH ONCE A DAY SWALLOW WHOLE - DO NOT CRUSH OR CHEW. ORAL ACTIVE 09/13/2025 [id number] 5 EDVIN SOUZA 2024 90 [facility] BUPROPION HCL 75MG TAB TAKE ONE TABLET BY MOUTH EVERY MORNING FOR DEPRESSI ON ORAL DISCONT INUED BY PROVIDE R 05/02/2025 [id number] 5 EDVIN SOUZA 2024 90 [facility] FLUTICASONE PROPIONATE 50MCG/SPRAY SOLN,NASAL, 16GM INSTILL 2 SPRAYS IN NOSTRIL( S) ONCE A DAY (MUST BE USED DIRECTED FOR MINIMUM OF 21 DAYS TO PROVIDE ADEQUATE BENEFITS ) NASAL ACTIVE 04/15/2025 [id number] 5 JANES ANN 2024 1 [facility] FLUTICASONE PROPIONATE 50MCG/SPRAY SOLN,NASAL, 16GM INSTILL 2 SPRAYS IN NOSTRIL( S) ONCE A DAY (MUST BE USED DIRECTED FOR MINIMUM OF 21 DAYS TO PROVIDE ADEQUATE BENEFITS ) NASAL DISCONT INUED 08/23/2024 [id number] JANES ANN 2023 3 [facility] Cruz GABAPENTIN 300MG CAP TAKE ONE CAPSULE BY MOUTH ONCE A DAY FOR NERVE PAIN ORAL ACTIVE 11/24/2024 [id number] 5 JANES ANN 2023 90 [facility] PRAZOSIN HCL 1MG CAP TAKE ONE CAPSULE BY MOUTH ONCE A DAY MAY CAUSE DIZZINES S OR DROWSINE SS. ORAL DISCONT INUED (EDIT) 01/18/2025 [id number] 5 JANES ANN 2023 90 [facility] Cruz PRAZOSIN HCL 2MG CAP TAKE ONE CAPSULE BY MOUTH AT BEDTIME NEEDED FOR NIGHTMAR ES MAY CAUSE DIZZINES S OR DROWSINE SS. ORAL SUSPEND ED 05/02/2025 [id number] EDVIN SOUZA 2024 90 [facility] Cruz SILDENAFIL CITRATE 100MG TAB TAKE ONE-HALF TABLET BY MOUTH ONE HOUR PRIOR TO SEXUAL ACTIVITY FOR ERECTILE DYSFUNCT ION NEEDED - LIMIT 6 DOSES PER 30 DAYS ORAL ACTIVE 01/18/2025 [id number] 5 JANES NAN 2023 9 [facility] SULFAMETHOX AZOLE 800MG/TRIME THOPRIM 160MG TAB TAKE 1 TABLET BY MOUTH EVERY 12 HOURS FOR 10 DAYS FOR SKIN OR SOFT TISSUE INFECTIO N TAKE WITH WATER/AV OID SUNLIGHT . ORAL 09/22/2023 [id number] 4 JANES ANN 2023 20 [facility] Immunizations Combined list of available immunizations from the Department of Defense and [facility] Affairs facilities. 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 Comments Source INFLUENZA, SPLIT VIRUS, TRIVALENT, PF 2024 CHAYA ALVES RIGHT DELTO ID [id number] 140 complet ed [facility] ZOSTER RECOMBINANT 1 2024 CHAYA ALVES LEFT DELTO ID [id number] 187 complet ed [facility] PNEUMOCOCCAL CONJUGATE PCV20, POLYSACCHARID E [id number] CONJUGATE, ADJUVANT, PF 2023,MAY D RIGHT DELTO ID [id number] 216 complet ed [facility] TDAP 1 2022 115 complet ed HISTORICA L INFORMATI ON - FROM OTHER REGISTRY, [facility] Results Combined list of recent [...] additional information , please refer to http://educ ation.Mohound .com/faq/ TotalTestos teroneLCMSM [email or web address] (This link is being provided for information al/ educational purposes only.) This test was developed and its analytical performance characteris tics have been determined by [facility] [place], [place]. It has not been cleared or approved by the U.S. Food and Drug Administrat ion. This assay has been validated pursuant to the CLIA regulations and is used for clinical purposes. Test Performed by [facility], [facility], [address] [place], [place] Dewey Rhoades M.D., Ph.D., Director of Laboratorie s , CLIA [id number] Ordering Provider: LESIA ANN Report Released Date/Time: Apr 04, 2024 11:00 AM Reporting Lab: [facility] [address] [facility] [address] Performing Lab: [facility] [id number] [facility] TESTOSTE SANGEETA, FREE PANEL ALBUMIN [MASS/VOLU ME] IN SERUM OR PLASMA 4.1 g/dL 3.6 - 5.1 05/01 Specimen Type: SERUM Comment: For additional information , please refer to http://Windfall [employer].Klixbox Media (T/A)/faq/ TotalTestos teroneLCMSM [id number] (This link is being provided for information al/ educational purposes only.) This test was developed and its analytical performance characteris tics have been determined by [facility] [place], [place]. It has not been cleared or approved by the U.S. Food and Drug Administrat ion. This assay has been validated pursuant to the CLIA regulations and is used for clinical purposes. Test Performed by [facility], [address] [place] [address] Dewey Rhoades M.D., Ph.D., Director of Laboratorie s , CLIA [id number] Ordering Provider: LESIA ANN Report Released Date/Time: Apr 04, 2024 11:00 AM Reporting Lab: [facility] [address] [facility] [address] Performing Lab: [facility] [id number] [place] [address] [facility] TESTOSTE SANGEETA, FREE PANEL TESTOSTERO NE FREE [MASS/VOLU ME] IN SERUM OR PLASMA 47.8 pg/mL 46.0 - 224.0 05/01 Specimen Type: SERUM Comment: For additional information , please refer to http://educ Wellsphere.Mohound .Plurality/faq/ TotalTestos teroneLCMSM [id number] (This link is being provided for information al/ educational purposes only.) This test was developed and its analytical performance characteris tics have been determined by [facility] [place], [place]. It has not been cleared or approved by the U.S. Food and Drug Administrat ion. This assay has been validated pursuant to the CLIA regulations and is used for clinical purposes. Test Performed by [facility], [address] [place] [address] Dewey Rhoades M.D., Ph.D., Director of Laboratorie s , CLIA [id number] Ordering Provider: LESIA ANN Report Released Date/Time: Apr 04, 2024 11:00 AM Reporting Lab: [address] [address] Performing Lab: [address] [facility] TESTOSTE SANGEETA, FREE PANEL TESTOSTERO NE.FREE+WE AKLY BOUND [MASS/VOLU ME] IN SERUM OR PLASMA 89.9 ng/dL 110.0 - 575.0 05/01 L Specimen Type: SERUM Comment: For additional information , please refer to http://Windfall [employer].Klix[employer] (T/A)/faq/ TotalTestos teroneLCMSM [id number] (This link is being provided for information al/ educational purposes only.) This test was developed and its analytical performance characteris tics have been determined by [facility] [place], [place]. It has not been cleared or approved by the U.S. Food and Drug Administrat ion. This assay has been validated pursuant to the CLIA regulations and is used for clinical purposes. Test Performed by [facility], [facility], [address] [place] [address] Dewey Rhoades M.D., Ph.D., Director of Laboratorie s , CLIA [id number] Ordering Provider: LESIA ANN Report Released Date/Time: Apr 04, 2024 11:00 AM Reporting Lab: [address] [address] Performing Lab: [address] [facility] TESTOSTE SANGEETA, FREE PANEL SEX HORMONE BINDING GLOBULIN [MOLES/VOL UME] IN SERUM OR PLASMA 41 nmol/L 10 - 50 05/01 Specimen Type: SERUM Comment: For additional information , please refer to http://educ Wellsphere.Klix[employer] (T/A)/faq/ TotalTestos teroneLCMSM [id number] (This link is being provided for information al/ educational purposes only.) This test was developed and its analytical performance characteris tics have been determined by [facility] [place], [place]. It has not been cleared or approved by the U.S. Food and Drug Administrat ion. This assay has been validated pursuant to the CLIA regulations and is used for clinical purposes. Test Performed by [facility], [facility], [address] [place], [place] Dewey Rhoades M.D., Ph.D., Director of Laboratorie s , CLIA [id number] Ordering Provider: LESIA ANN Report Released Date/Time: Apr 04, 2024 11:00 AM Reporting Lab: [facility] [address] [facility] [address] Performing Lab: [facility] [address] [facility] CBC LEUKOCYTES [#/VOLUME] IN BLOOD BY AUTOMATED COUNT 6.4 10*3/uL 3.6 - 11.2 08/22 Specimen Type: BLOOD No comment entered. Ordering Provider: LESIA ANN Report Released Date/Time: Aug 23, 2023 02:03 PM Reporting Lab: [facility] [facility] [address] Performing Lab: [facility] [id number] [place] [address] DIVISION CBC ERYTHROCYT ES [#/VOLUME] IN BLOOD BY AUTOMATED COUNT 4.68 10*6/uL 4.10 - 5.70 08/22 Specimen Type: BLOOD No comment entered. Ordering Provider: LESIA ANN Report Released Date/Time: Aug 23, 2023 02:03 PM Reporting Lab: [facility] [address] Performing Lab: [facility] [address] CBC HEMOGLOBIN [MASS/VOLU ME] IN BLOOD 15.3 g/dL 13.1 - 16.8 08/22 Specimen Type: BLOOD No comment entered. Ordering Provider: LESIA ANN SAY Report Released Date/Time: Aug 23, 2023 02:03 PM Reporting Lab: [facility] #1 [place] [address] Performing Lab: [facility] DIVISION CBC HEMATOCRIT [VOLUME FRACTION] OF BLOOD 44.4 38.2 - 48.4 08/22 Specimen Type: BLOOD No comment entered. Ordering Provider: LESIA ANN SAY Report Released Date/Time: Aug 23, 2023 02:03 PM Reporting Lab: [facility]1 [place] [address] Performing Lab: [facility] DIVISION CBC MCV [ENTITIC VOLUME] BY AUTOMATED COUNT 94.9 fL 80.0 - 100.0 08/22 Specimen Type: BLOOD No comment entered. Ordering Provider: LESIA ANN SAY Report Released Date/Time: Aug 23, 2023 02:03 PM Reporting Lab: [facility]1 [place] [address] Performing Lab: [facility] DIV[facility] CBC MCH [ENTITIC MASS] BY AUTOMATED COUNT 32.7 pg 27.0 - 34.0 08/22 Specimen Type: BLOOD No comment entered. Ordering Provider: LESIA ANN SAY Report Released Date/Time: Aug 23, 2023 02:03 PM Reporting Lab: [facility]1 [place] [address] Performing Lab: [facility] DIVISION CBC MCHC [MASS/VOLU ME] BY AUTOMATED COUNT 34.5 g/dL 33.0 - 36.0 08/22 Specimen Type: BLOOD No comment entered. Ordering Provider: LESIA ANN SAY Report Released Date/Time: Aug 23, 2023 02:03 PM Reporting Lab: [facility]1 [place] [address] Performing Lab: [facility] CBC PLATELETS [#/VOLUME] IN BLOOD BY AUTOMATED COUNT 219 10*3/uL 150 - 400 08/22 Specimen Type: BLOOD No comment entered. Ordering Provider: LESIA ANN SAY Report Released Date/Time: Aug 23, 2023 02:03 PM Reporting Lab: [facility] [place] [address] Performing Lab: [facility] DIVISION CBC PLATELET MEAN VOLUME [ENTITIC VOLUME] IN BLOOD BY AUTOMATED COUNT 8.5 fL 7.5 - 11.2 08/22 Specimen Type: BLOOD No comment entered. Ordering Provider: LESIA ANN SAY Report Released Date/Time: Aug 23, 2023 02:03 PM Reporting Lab: [facility]1 [place] [address] Performing Lab: [facility] DIVISION CBC ERYTHROCYT E DISTRIBUTI ON WIDTH [RATIO] BY AUTOMATED COUNT 12.5 11.8 - 15.1 08/22 Specimen Type: BLOOD No comment entered. Ordering Provider: LESIA ANN SAY Report Released Date/Time: Aug 23, 2023 02:03 PM Reporting Lab: [facility]1 [place] [address] Performing Lab: [facility] CBC LYMPHOCYTE S/100 LEUKOCYTES IN BLOOD BY AUTOMATED COUNT 27 08/22 Specimen Type: BLOOD No comment entered. Ordering Provider: LESIA ANN SAY Report Released Date/Time: Aug 23, 2023 02:03 PM Reporting Lab: [facility] [facility] [address] Performing Lab: [facility] #[address] DIVISION CBC MONOCYTES/ 100 LEUKOCYTES IN BLOOD BY AUTOMATED COUNT 10 08/22 Specimen Type: BLOOD No comment entered. Ordering Provider: LESIA ANN SAY Report Released Date/Time: Aug 23, 2023 02:03 PM Reporting Lab: [facility] [facility] [address] Performing Lab: [facility] #[address] DIVISION CBC NEUTROPHIL S/100 LEUKOCYTES IN BLOOD BY AUTOMATED COUNT 58 08/22 Specimen Type: BLOOD No comment entered. Ordering Provider: LESIA ANN SAY Report Released Date/Time: Aug 23, 2023 02:03 PM Reporting Lab: [facility] [place] [address] Performing Lab: [facility] [facility] [phone] DIVISION CBC EOSINOPHIL S/100 LEUKOCYTES IN BLOOD BY AUTOMATED COUNT 3 08/22 Specimen Type: BLOOD No comment entered. Ordering Provider: LESIA ANN SAY Report Released Date/Time: Aug 23, 2023 02:03 PM Reporting Lab: [facility] [facility] [address] Performing Lab: [facility] [id number] [place] [address] DIVISION CBC BASOPHILS/ 100 LEUKOCYTES IN BLOOD BY AUTOMATED COUNT 1 08/22 Specimen Type: BLOOD No comment entered. Ordering Provider: LESIA ANN SAY Report Released Date/Time: Aug 23, 2023 02:03 PM Reporting Lab: [facility]1 [place] [address] Performing Lab: [facility] #[address] DIVISION CBC LYMPHOCYTE S [#/VOLUME] IN BLOOD BY AUTOMATED COUNT 1.75 10*3/uL 0.77 - 4.50 08/22 Specimen Type: BLOOD No comment entered. Ordering Provider: LESIA ANN SAY Report Released Date/Time: Aug 23, 2023 02:03 PM Reporting Lab: [facility]1 [place] [address] Performing Lab: [facility] DIVISION CBC MONOCYTES [#/VOLUME] IN BLOOD BY AUTOMATED COUNT 0.66 10*3/uL 0.19 - 0.80 08/22 Specimen Type: BLOOD No comment entered. Ordering Provider: LESIA ANN SAY Report Released Date/Time: Aug 23, 2023 02:03 PM Reporting Lab: [facility]1 [place] [address] Performing Lab: [facility] DIVISION CBC NEUTROPHIL S [#/VOLUME] IN BLOOD BY AUTOMATED COUNT 3.71 10*3/uL 2.10 - 8.00 08/22 Specimen Type: BLOOD No comment entered. Ordering Provider: LESIA ANN SAY Report Released Date/Time: Aug 23, 2023 02:03 PM Reporting Lab: [facility]1 [place] [address] Performing Lab: [facility] DIVISION CBC EOSINOPHIL S [#/VOLUME] IN BLOOD BY AUTOMATED COUNT 0.16 10*3/uL 0.00 - 0.60 08/22 Specimen Type: BLOOD No comment entered. Ordering Provider: LESIA ANN SAY Report Released Date/Time: Aug 23, 2023 02:03 PM Reporting Lab: [facility]1 [place] [address] Performing Lab: [facility] DIVISION CBC BASOPHILS [#/VOLUME] IN BLOOD BY AUTOMATED COUNT 0.08 10*3/uL 0.00 - 0.20 08/22 Specimen Type: BLOOD No comment entered. Ordering Provider: LESIA ANN SAY Report Released Date/Time: Aug 23, 2023 02:03 PM Reporting Lab: [facility]1 [place] [address] Performing Lab: [facility] #[address] DIVISION COMPREHE NSIVE METABOLI C PANEL CREATININE [MASS/VOLU ME] IN SERUM OR PLASMA 1.09 mg/dL 0.70 - 1.30 08/22 Specimen Type: PLASMA Comment: No hemolysis noted. Ordering Provider: LESIA ANN SAY Report Released Date/Time: Aug 23, 2023 02:03 PM Reporting Lab: [facility] [place] [address] Performing Lab: [facility] #[address] DIVISION COMPREHE NSIVE METABOLI C PANEL UREA NITROGEN [MASS/VOLU ME] IN SERUM OR PLASMA 9.1 mg/dL 9.0 - 25.0 08/22 Specimen Type: PLASMA Comment: No hemolysis noted. Ordering Provider: LESIA ANN SAY Report Released Date/Time: Aug 23, 2023 02:03 PM Reporting Lab: [facility] [place] [address] Performing Lab: [facility] DIVISION COMPREHE NSIVE METABOLI C PANEL GLUCOSE [MASS/VOLU ME] IN SERUM OR PLASMA 94 mg/dL 72 - 99 08/22 Specimen Type: PLASMA Comment: No hemolysis noted. Ordering Provider: LESIA ANN SAY Report Released Date/Time: Aug 23, 2023 02:03 PM Reporting Lab: [facility] [place] [address] Performing Lab: [facility] DIVISION COMPREHE NSIVE METABOLI C PANEL SODIUM [MOLES/VOL UME] IN SERUM OR PLASMA 140 meq/L 136 - 145 08/22 Specimen Type: PLASMA Comment: No hemolysis noted. Ordering Provider: LESIA ANN SAY Report Released Date/Time: Aug 23, 2023 02:03 PM Reporting Lab: [facility] [place] [address] Performing Lab: [facility] DIVISION COMPREHE NSIVE METABOLI C PANEL POTASSIUM [MOLES/VOL UME] IN SERUM OR PLASMA 4.1 meq/L 3.5 - 5.0 08/22 Specimen Type: PLASMA Comment: No hemolysis noted. Ordering Provider: LESIA ANN SAY Report Released Date/Time: Aug 23, 2023 02:03 PM Reporting Lab: [facility] [place] [address] Performing Lab: [facility] DIVISION COMPREHE NSIVE METABOLI C PANEL CHLORIDE [MOLES/VOL UME] IN SERUM OR PLASMA 103 meq/L 98 - 107 08/22 Specimen Type: PLASMA Comment: No hemolysis noted. Ordering Provider: LESIA ANN SAY Report Released Date/Time: Aug 23, 2023 02:03 PM Reporting Lab: [facility] [place] [address] Performing Lab: [facility] #[address] DIVISION COMPREHE NSIVE METABOLI C PANEL CARBON DIOXIDE, TOTAL [MOLES/VOL UME] IN SERUM OR PLASMA 25 meq/L 22 - 31 08/22 Specimen Type: PLASMA Comment: No hemolysis noted. Ordering Provider: LESIA ANN SAY Report Released Date/Time: Aug 23, 2023 02:03 PM Reporting Lab: [facility] [place] [address] Performing Lab: [facility] #[address] DIVISION COMPREHE NSIVE METABOLI C PANEL CALCIUM [MASS/VOLU ME] IN SERUM OR PLASMA 9.3 mg/dL 8.4 - 10.4 08/22 Specimen Type: PLASMA Comment: No hemolysis noted. Ordering Provider: LESIA ANN SAY Report Released Date/Time: Aug 23, 2023 02:03 PM Reporting Lab: [facility] [place] [address] Performing Lab: [facility] #[address] DIVISION COMPREHE NSIVE METABOLI C PANEL PROTEIN [MASS/VOLU ME] IN SERUM OR PLASMA 7.6 g/dL 6.0 - 8.6 08/22 Specimen Type: PLASMA Comment: No hemolysis noted. Ordering Provider: LESIA ANN SAY Report Released Date/Time: Aug 23, 2023 02:03 PM Reporting Lab: [facility] [place] [address] Performing Lab: [facility] #[address] DIVISION COMPREHE NSIVE METABOLI C PANEL ALBUMIN [MASS/VOLU ME] IN SERUM OR PLASMA 4.4 g/dL 3.4 - 5.0 08/22 Specimen Type: PLASMA Comment: No hemolysis noted. Ordering Provider: LESIA ANN SAY Report Released Date/Time: Aug 23, 2023 02:03 PM Reporting Lab: [facility] [place] [address] Performing Lab: [facility] #[address] DIVISION COMPREHE NSIVE METABOLI C PANEL BILIRUBIN. TOTAL [MASS/VOLU ME] IN SERUM OR PLASMA 0.7 mg/dL 0.2 - 1.2 08/22 Specimen Type: PLASMA Comment: No hemolysis noted. Ordering Provider: LESIA ANN SAY Report Released Date/Time: Aug 23, 2023 02:03 PM Reporting Lab: [facility] [place] [address] Performing Lab: [facility] #[address] DIVISION COMPREHE NSIVE METABOLI C PANEL ALKALINE PHOSPHATAS E [ENZYMATIC ACTIVITY/V OLUME] IN SERUM OR PLASMA 97 U/L 40 - 150 08/22 Specimen Type: PLASMA Comment: No hemolysis noted. Ordering Provider: LESIA ANN SAY Report Released Date/Time: Aug 23, 2023 02:03 PM Reporting Lab: [facility] [place] [address] Performing Lab: [facility] DIVISION COMPREHE NSIVE METABOLI C PANEL ASPARTATE AMINOTRANS FERASE [ENZYMATIC ACTIVITY/V OLUME] IN SERUM OR PLASMA 33 U/L 5 - 34 08/22 Specimen Type: PLASMA Comment: No hemolysis noted. Ordering Provider: LESIA ANN SAY Report Released Date/Time: Aug 23, 2023 02:03 PM Reporting Lab: [facility] [place] [address] Performing Lab: [facility] DIVISION COMPREHE NSIVE METABOLI C PANEL ALANINE AMINOTRANS FERASE [ENZYMATIC ACTIVITY/V OLUME] IN SERUM OR PLASMA 29 U/L 8 - 40 08/22 Specimen Type: PLASMA Comment: No hemolysis noted. Ordering Provider: LESIA ANN SAY Report Released Date/Time: Aug 23, 2023 02:03 PM Reporting Lab: [facility] [address] Performing Lab: [facility] [place] [id number] DIVISION COMPREHE NSIVE METABOLI C PANEL GLOMERULAR FILTRATION RATE/1.73 SQ M.PREDICTE D [VOLUME RATE/AREA] IN SERUM, PLASMA OR BLOOD BY CREATININE -BASED FORMULA (CKD-EPI 2020) 80.15 60 08/22 Specimen Type: PLASMA Comment: No hemolysis noted. Ordering Provider: LESIA ANN SAY Report Released Date/Time: Aug 23, 2023 02:03 PM Reporting Lab: [facility] [place] [address] Performing Lab: [facility] DIVISION HEP C Ab HCV Ab (STL) HEPATITIS C VIRUS AB [PRESENCE] IN SERUM Nonreact marysol 08/22 Specimen Type: SERUM No comment entered. Ordering Provider: LESIA ANN SAY Report Released Date/Time: Aug 23, 2023 02:03 PM Reporting Lab: [facility] [address] [place] [id number] Performing Lab: [facility] DIVISION [address] [place] [id number] [facility] HGA1C HEMOGLOBIN A1C/HEMOGL OBIN.TOTAL IN BLOOD 5.6 4.0 - 6.0 08/22 Specimen Type: BLOOD No comment entered. Ordering Provider: LESIA ANN SAY Report Released Date/Time: Aug 23, 2023 02:03 PM Reporting Lab: [facility] [facility] [id number] Performing Lab: [facility] [place] [id number] DIVISION HIV COMBO FOURTH GENERATI ON (STL) HIV 1+2 AB+HIV1 P24 AG [PRESENCE] IN SERUM OR PLASMA BY IMMUNOASSA Y Nonreact marysol 08/22 Specimen Type: SERUM No comment entered. Ordering Provider: LESIA ANN Report Released Date/Time: Aug 23, 2023 02:03 PM Reporting Lab: [facility] [address] [id number] Performing Lab: [place] [address] [place] [id number] LIPID PANEL (STL) CHOLESTERO L [MASS/VOLU ME] IN SERUM OR PLASMA 220 mg/dL 0 - 200 08/22 H Specimen Type: PLASMA Comment: No hemolysis noted. Ordering Provider: LESIA ANN Report Released Date/Time: Aug 23, 2023 02:03 PM Reporting Lab: [facility] [place] [address] Performing Lab: [facility] LIPID PANEL (STL) TRIGLYCERI DE [MASS/VOLU ME] IN SERUM OR PLASMA 99 mg/dL 0 - 150 08/22 Specimen Type: PLASMA Comment: No hemolysis noted. Ordering Provider: LESIA ANN Report Released Date/Time: Aug 23, 2023 02:03 PM Reporting Lab: [facility]1 [place] [address] Performing Lab: [facility] LIPID PANEL (STL) CHOLESTERO L IN LDL [MASS/VOLU ME] IN SERUM OR PLASMA BY CALCULATIO N 129 mg/dL 08/22 Specimen Type: PLASMA Comment: No hemolysis noted. Ordering Provider: LESIA ANN Report Released Date/Time: Aug 23, 2023 02:03 PM Reporting Lab: [facility] [place] [address] Performing Lab: [facility] #[address] DIVISION LIPID PANEL (STL) CHOLESTERO L IN HDL [MASS/VOLU ME] IN SERUM OR PLASMA 71 mg/dL 40 08/22 Specimen Type: PLASMA Comment: No hemolysis noted. Ordering Provider: LESIA ANN SAY Report Released Date/Time: Aug 23, 2023 02:03 PM Reporting Lab: [facility]1 [place] [address] Performing Lab: [facility] #[address] DIVISION TSH W/ REFLEX FT4 (L) THYROTROPI N [UNITS/VOL UME] IN SERUM OR PLASMA 1.216 u[IU]/mL 0.470 - 5.000 08/22 Specimen Type: PLASMA No comment entered. Ordering Provider: LESIA ANN SAY Report Released Date/Time: Aug 23, 2023 02:03 PM Reporting Lab: [facility]1 [place] [address] Performing Lab: [facility] DIVISION PROST. SPECIFIC AG.(PB-S TL) PROSTATE SPECIFIC AG [...] Aug 23, 2023 03:25 PM Reporting Lab: [facility] [address] [facility] [address] [address] Performing Lab: [facility] [address] [address] [facility] Vital Signs Combined list of inpatient and outpatient Vital Signs from Department of Defense and Veterans Affairs, ranging from 12 months to all on record, depending upon the facility. Vital Sign Value Date Comments Source SYSTOLIC BLOOD PRESSURE 126 04/04/2024 10:20:03 [facility] DIASTOLIC BLOOD PRESSURE 78 04/04/2024 10:20:03 [facility] PULSE OXIMETRY 98 04/04/2024 10:20:03 [facility] WEIGHT 249.6 04/04/2024 10:20:03 [facility] BMI 36 kg/m2 04/04/2024 10:20:03 [facility] PAIN 0 04/04/2024 10:20:03 [facility] TEMPERATURE 98.4 04/04/2024 10:20:03 [facility] PULSE 62 04/04/2024 10:20:03 [facility] RESPIRATION 18 04/04/2024 10:20:03 [facility] SYSTOLIC BLOOD PRESSURE 128 01/18/2024 15:32:01 [facility] DIASTOLIC BLOOD PRESSURE 76 01/18/2024 15:32:01 [facility] PULSE OXIMETRY 95 01/18/2024 15:32:01 [facility] WEIGHT 252 01/18/2024 15:32:01 [facility] BMI 36 kg/m2 01/18/2024 15:32:01 [facility] PAIN 0 01/18/2024 15:32:01 [facility] HEIGHT 70 01/18/2024 15:32:01 [facility] TEMPERATURE 98.9 01/18/2024 15:32:01 [facility] PULSE 88 01/18/2024 15:32:01 [facility] RESPIRATION 20 01/18/2024 15:32:01 [facility] Encounters Combined list of: 1) Encounters from Department of [facility] Affairs facilities going backup to the last 18 months, not all VA inpatient encounters are included; 2) Encounters from the Department of [facility] facilities going backup to 280 months. Location Location Details Encounter Type Encounter Number Reason For Visit Attending Provider ADM Date DC Date Status Disposition Source [facility] Outpatient Encounter [id number] 07/20 [facility] Outpatient Encounter [id number] 08/03 [facility] Outpatient Encounter [id number] 08/21 [facility] Outpatient Encounter [id number] 08/22 [facility] OFFICE O/P NEW MOD 45 MIN [id number] Diagnos is: ICD-10- CM L98.9 Disorde r of the skin and subcuta neous tissue, unspeci fied KRIS ANN 08/22 [facility] Outpatient Encounter [id number] 08/22 [facility] Outpatient Encounter [id number] 08/23 [facility] Outpatient Encounter [id number] 09/15 [facility] PSYTX W PT 30 MINUTES [id number] Diagnos is: ICD-10- CM F32.A Depress ion, unspeci fied MILLY JAMES NNIFER A 09/15 [facility] PSYTX W PT 30 MINUTES [id number] Diagnos is: ICD-10- CM G47.00 Insomni a, unspeci fied MILLY JAMES NNIFER A 09/25 [facility] Outpatient Encounter [id number] KRIS ANN DELILAHY 10/03 [facility] PSYTX W PT 30 MINUTES [id number] Diagnos is: ICD-10- CM G47.00 Insomni a, unspeci fied MILLY JAMES NNIFER A 10/20 [facility] Outpatient Encounter [id number] 11/21 [facility] Outpatient Encounter [id number] 11/22 [facility] Outpatient Encounter [id number] 11/22 [facility] PSYTX W PT 30 MINUTES [id number] Diagnos is: ICD-10- CM G47.00 Insomni a, unspeci fied GUERRERO RODRIGUEZ E 12/15 [facility] Outpatient Encounter [id number] 12/15 [facility] Outpatient Encounter [id number] VALENTINA CASTILLO T 12/18 [facility] Outpatient Encounter [id number] 12/20 [facility] Outpatient Encounter [id number] 12/20 [facility] POS AIRWAY PRESSURE CPAP [id number] Diagnos is: ICD-10- CM G47.39 Other sleep apnea REGINALD COOPER MD 12/21 [facility] Outpatient Encounter [id number] VALENTINA CASTILLO T 01/05 [facility] OFFICE O/P EST MOD 30 MIN [id number] Diagnos is: ICD-10- CM F51.5 Nightma re KRIS GreshamY 01/17 [facility] Outpatient Encounter [id number] 01/19 [facility] PSYTX W PT 30 MINUTES [id number] Diagnos is: ICD-10- CM F43.9 Reactio n to severe stress, unspeci GUERRERO Manzano 02/07 [facility] Outpatient Encounter [id number] 02/07 [facility] Outpatient Encounter [id number] 02/23 [facility] Outpatient Encounter [id number] 03/02 [facility] PATH CLIN CONSLTJ MOD 21-40 [id number] Diagnos is: ICD-10- CM F32.A Depress ion, unspeci fied MANJU,WAR RUTH G III 03/15 [facility] Outpatient Encounter [id number] VALENTINA CASTILLO T 03/16 [facility] Outpatient Encounter [id number] 03/16 [facility] Outpatient Encounter [id number] 03/21 [facility] Outpatient Encounter [id number] VALENTINA CASTILLO T 03/21 [facility] OFFICE O/P EST MOD 30 MIN [id number] Diagnos is: ICD-10- CM G47.39 Other sleep apnea KRIS ANN 04/04 [facility] Outpatient Encounter [id number] 05/01 [facility] OFFICE O/P NEW MOD 45 MIN [id number] Diagnos is: ICD-10- CM F43.12 Post-tr aumatic stress disorde r, Heladio Connelly 05/01 [facility] Outpatient Encounter [id number] 05/01 [facility] Outpatient Encounter [id number] JLUIET SEVILLA M 05/07 [facility] Outpatient Encounter [id number] UMM PARRA M 05/08 [facility] Outpatient Encounter [id number] 05/08 [facility] Outpatient Encounter [id number] MARTINEZ ULLOA ORAH A 05/09 [facility] Outpatient Encounter [id number] CONDOR,MARTINEZ ORAH A 05/09 [facility] Outpatient Encounter [id number] JUANIOR,MARTINEZ ORAH A 05/09 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 OFFICE O/P EST MOD 30 MIN [id number] Diagnos is: ICD-10- CM F43.12 Post-tr aumatic stress disorde r, chronic ALIZADEH,A JANES 05/30 [facility] Outpatient Encounter [id number] 06/12 [facility] EDU&TRN PT SLF-MGMT NQHP 2-4 [id number] Diagnos is: ICD-10- CM Z02.5 Encount er for examina tion for partici pation in sport Gaudencio LATIF P 06/18 [facility] ACTIVITY THERAPY, PER 15 MIN [id number] Diagnos is: ICD-10- CM F41.9 Anxiety disorde r, unspeci fied Gaudencio LATIF P 06/18 [facility] OFFICE O/P EST MOD 30 MIN [id number] Diagnos is: ICD-10- CM F43.12 Post-tr aumatic stress disorde r, chronic ALIZADEH,A LI 09/12 [facility] Outpatient Encounter [id number] CRISTÓBAL CANTU D 09/12 [facility] Outpatient Encounter [id number] JACKY VALENCIA 09/25 [facility] Social History Combined list of available smoking, tobacco, and other social history from Department of Defense and Veterans Affairs facilities. Social History Type Response Date Comment Sourc e Tobacco smoking status NHIS VA-TOBACCO USER EVERY DAY 08/23/2023 [facility] History of tobacco use VA-TOBACCO DOESNT USE WI 30 MIN WAKEUP 08/23/2023 [facility] Plan of Care List of future care activities from Department of Veterans Affairs facilities. Additional future care activities may be listed in the Assessment and Plan section. Date/Time Care Activity Care Activity Detail Facili ty 10/02/2024 AMBULATORY - MEDICINE AMBULATORY - MEDICI NE [facility]
--- OUTSIDE RECORDS SUMMARY | 2024-10-01 08:55 | XMS_ITS | Clinical Summary ---
Author Organization [facility] [employer] Address [address] [place] [address] Care Team Providers Care Dieing Out Machine Operator Name Role Phone Maru Montiel MD Primary Care Provider [phone] Source Comments [facility] [employer],non-owned Affiliates and Associated Physician Practices is amultiple site organization consisting of ambulatory clinics and hospital sitesin [place], [place], [place] and [place]. This disclosure is being madepursuant to the Care Everywhere program and may not contain all information available regarding this patient. Last updated 17.[facility] [employer] Allergies No known active allergies Medications * [...] 7 - 26 mg/dL 10/12/2022 6:07 AM [facility] Creatinine 0.92 0.71 - 1.16 mg/dL 10/12/2022 6:07 AM [facility] Sodium 137 136 - 145 mmol/L 10/12/2022 6:07 AM [facility] Potassium 4.0 3.5 - 4.5 mmol/L 10/12/2022 6:07 AM [facility] Chloride 106 98 - 107 mmol/L 10/12/2022 6:07 AM [facility] CO2 24 22 - 29 mmol/L 10/12/2022 6:07 AM [facility] Glucose 125(H) 70 - 115 mg/dL 10/12/2022 6:07 AM [facility] Calcium 8.6 8.4 - 10.2 mg/dL 10/12/2022 6:07 AM [facility] Anion Gap 11 8 - 18 10/12/2022 6:07 AM [facility] BUN/Creatinine Ratio 14 7 - 23 10/12/2022 6:07 AM [facility] Osmolality Calculated 286 270 - 300 mOsm/kg 10/12/2022 6:07 AM [facility] eGFR by CKD-EPI >90 >=90 mL/min/1.7 3 m2 10/12/2022 6:07 AM T [facility] Blood BLOOD SPECIMEN / Unknown Lab Venipuncture / Unknown 10/12/2022 3:02 AM CDT 10/12/2022 5:39 AM T Rashawn Burgess DO LAB - CHEMISTRY ORDERABLES Fin al Result [facility] [address] [place] [address], [facility] [phone] from Last 3 Months or Most Recently Relevant to Health Maintenance Insurance [facility] * Guarantor: PITER GOODSON Account Type Relation to Patient Date of Phone Billing Address Personal/Family [address] [place] [address] [facility] [employer] * Guarantor: PITER GOODSON Account Type Relation to Patient Date of Phone Billing Address Personal/Family [address] [place] [address] * Guarantor: PITER GOODSON Account Type Relation to Patient Date of Phone Billing Address Personal/Family [address] [place] [address] Advance Directives * Full Code (Latest Code Status on File) Date Activated Date Inactivated Comments 10/11/2022 2:22 PM 10/12/2022 4:06 PM Care Teams Dieing Out Machine Operator Relationship Specialty Start Date End Date Maru Montiel MD [address] [place] [id number] PCP - General Family Medicine 10/11/22
[2024-10-01 09:06] LABS: Hematocrit 45.8 % (42.0-52.0); Hemoglobin 15.3 g/dL (14.0-18.0); Immature Granulocyte Percent A 0.3 % (0-0.5); Lymphocytes Absolute Auto 0.79 K/mm3 (0.9-3.2); Mean Corpuscular HGB Conc 33.4 g/dl (32-36); Mean Corpuscular Hemoglobin 32.4 pg (26-34); Mean Corpuscular Volume 97.0 fl (80-100); Nucleated Red Blood Cells Absolute Auto 0.000 K/mm3 (0.0-0.012); Nucleated Red Blood Cells Perc 0.0 % (0.0-0.2); Platelet Count Result 206 k/mm3 (150-375); Red Blood Count 4.72 M/mm3 (4.6-6.20); White Blood Count 13.8 K/mm3 (4.5-10.0)
[2024-10-01 09:19] LABS: Add Urine Microscopic? NO; Appearance Urine Clear (Clear); Glucose Urine UA Negative (Negative); Leukocyte Esterase Ur Negative LEU/UL (Negative); Nitrate Urine Negative (Negative); Specific Grav Ur 1.023 (1.001-1.035)
[2024-10-01] MEDS: SODIUM CHLORIDE 0.9% IV 1,000 ML 150 ML IV CONT (09:39)
[2024-10-01] MEDS: MORPHINE SULFATE (*CRX) 4 MG/ML INJ IV PUSH (09:40)
[2024-10-01] MEDS: ONDANSETRON INJ 4 MG/2 ML VIAL IV PUSH (09:40)
[2024-10-01 10:35] LABS: Alanine Aminotransferase 21 U/L (6-50); Albumin Level 4.6 g/dL (3.5-5.1); Alkaline Phosphatase 112 U/L (38-126); Anion Gap 10 mmol/L (4-12); Aspartate Amino Transferase 32 U/L (17-59); Bilirubin,Total 0.9 mg/dL (0.2-1.3); Blood Urea Nitrogen 15 mg/dL (9-20); Calcium 9.4 mg/dL (8.4-10.2); Carbon Dioxide 24 mmol/L (22-30); Chloride 101 mmol/L (98-107); Estimated CRCL calculation 87 ml/min; Estimated Glomerular Filt Rate > 60; Glucose 116 mg/dL (65-110); Lipase 43 U/L (23-300); Potassium 4.5 mmol/L (3.4-5.0); Sodium 135 mmol/L (137-145); Total Protein 8.1 g/dL (6.3-8.2)
--- NOTE | 2024-10-01 11:38 | ED_ITS ---
HPI - Abdominal Pain General Chief Complaint: Abdominal Pain Stated Complaint: I think I have appendicitis Time Seen by Provider: 10/01/24 08:40 Source: patient Mode of arrival: ambulatory Limitations: no limitations History of Present Illness HPI narrative: 54-year-old with a history of of PTSD on Wellbutrin, here with the complaints of right-sided lower abdominal pain with started he hours ago. She he denies any fever or chills. MD elicited complaint: abdominal pain Pertinent past history: none Onset (ago): hour(s) (4) Pain Consistency: constant Location: RLQ Severity: moderate Quality: aching Radiation: none Migration to: no migration Exacerbating factors: nothing Relieving factors: nothing Associated symptoms: denies other symptoms Related Data Home Medications ?Medication ?Instructions ?Recorded ?Confirmed ?Last Taken ?Type gabapentin 300 mg capsule 300 mg PO DAILY 08/01/23 Unknown History Allergies Allergy/AdvReac Type Severity Reaction Status Date / Time No Known Allergies Allergy Mild Verified 10/01/24 07:43 Review of Systems 2 Review of Systems: All systems reviewed & are unremarkable except as noted in HPI and below Constitutional: Constitutional: Reports no additional constitutional complaints Eyes: Eyes: Reports no additional eye complaints ENT: Reports system reviewed and no additional complaints, except as documented Cardiovascular: Cardiovascular: Reports no additional cardiovascular complaints Respiratory: Respiratory: Reports no additional respiratory complaints Gastrointestinal: Gastrointestinal: Reports as per HPI Musculoskeletal: Musculoskeletal: Reports no additional musculoskeletal complaints Neurologic: Reports system reviewed and no additional complaints, except as documented Psychiatric: Psychiatric: Reports no additional psychiatric complaints PMFSH Past Medical History Medical History EDGAR (obstructive sleep apnea) Tobacco abuse PTSD (post-traumatic stress disorder) Surgical History Surgical History History of surgery on arm injury to the left upper arm from a chainsaw resulting in surgery Social History Social History Smoking status: Never smoker Exam 2 Narrative: GENERAL: Well-appearing, well-nourished, and in no acute distress. HEAD: Normocephalic, atraumatic. EYES: PERRLA and EOMI. ENT: Nares clear, no rhinorrhea or epistaxis. Mucous membranes moist. NECK: Supple. CHEST: Clear to auscultation. No respiratory distress. HEART: Regular rate and rhythm. No murmur heard. Normal peripheral pulses. ABDOMEN: Soft, tender in the right lower quadrant, nondistended, normal active bowel sounds. EXTREMITIES: Normal range of motion. No edema. SKIN: Warm, dry, no rash. NEURO: No focal deficits. Alert and oriented x3. PSYCH: Normal mood and affect. Course Course Emergency Course: Start informed patient about his lab work, CT findings. Discussed with Dr. Knott will take pt to the OR Vital Signs Vital signs: Vital Signs Temperature 36.3 C L 10/01/24 07:41 Pulse Rate 69 10/01/24 07:41 Respiratory Rate 20 10/01/24 07:41 Blood Pressure 116/73 10/01/24 07:41 Pulse Oximetry 96 10/01/24 07:41 Oxygen Delivery Room Air 10/01/24 07:41 Temperature 36.3 C L 10/01/24 07:41 Pulse Rate 83 10/01/24 13:56 Respiratory Rate 22 H 10/01/24 13:56 Blood Pressure 106/63 10/01/24 13:01 Pulse Oximetry 97 10/01/24 13:56 Oxygen Delivery Room Air 10/01/24 07:41 MDM - Abdominal Pain Differential Diagnosis Differential diagnosis: Likely abdominal pain, acute appendicitis, constipation and small bowel obstruction Medical Records Attestation: I reviewed the patient's medical records. Lab Data Attestation: I reviewed the patient's lab results. 10/01/24 08:56 10/01/24 09:50 Labs: Lab Results 10/01/24 10/01/24 10/01/24 Range/Units 08:56 09:11 09:50 WBC 13.8 H (4.5-10.0) K/mm3 RBC 4.72 (4.6-6.20) M/mm3 Hgb 15.3 (14.0-18.0) g/dL Hct 45.8 (42.0-52.0) % MCV 97.0 (80-100) fl MCH 32.4 (26-34) pg MCHC 33.4 (32-36) g/dl RDW 12.7 (11.5-14.5) % Plt Count 206 (150-375) k/mm3 MPV 8.9 (7.4-10.4) fl Immature Gran % (Auto) 0.3 (0-0.5) % Neut % (Auto) 86.1 H (45.5-73.1) % Lymph % (Auto) 5.7 L (18.3-44.2) % Petroleum % (Auto) 7.4 (2.6-8.5) % Eos % (Auto) 0.1 (0-4.4) % Baso % (Auto) 0.4 (0.2-1.2) % Lymph # (Auto) 0.79 L (0.9-3.2) K/mm3 Petroleum # (Auto) 1.0 H (0.1-0.6) K/mm3 Eos # (Auto) 0.0 (0-0.3) K/mm3 Baso # (Auto) 0.1 (0.0-0.1) K/mm3 Abs Immat Gran (auto) 0.04 H (0.00-0.031) K/mm3 Absolute Neuts (auto) 11.9 H (1.3-6.7) K/mm3 Absolute Nucleated RBC 0.000 (0.0-0.012) K/mm3 Nucleated RBC % 0.0 (0.0-0.2) % PT 12.6 (11.1-14.7) Seconds INR 0.9 Sodium Cancelled 135 L Potassium Cancelled 4.5 Chloride Cancelled 101 Carbon Dioxide Cancelled 24 Anion Gap Cancelled 10 BUN Cancelled 15 Creatinine Cancelled 1.04 Estim Creat Clear Calc Cancelled 87 Estimated GFR Cancelled > 60 Glucose Cancelled 116 H Calcium Cancelled 9.4 Total Bilirubin Cancelled 0.9 AST Cancelled 32 ALT Cancelled 21 Alkaline Phosphatase Cancelled 112 Total Protein Cancelled 8.1 Albumin Cancelled 4.6 Lipase Cancelled 43 Urine Color Yellow (Yellow) Urine Appearance Clear (Clear) Urine pH 5.5 (5.0-9.0) Ur Specific [place] 1.023 (1.001-1.035) Urine Protein Negative (Negative) mg/dL Urine Glucose (UA) Negative (Negative) mg/dL Urine Ketones 3+ H (Negative) mg/dL Ur Blood (Man) Negative (Negative) Urine Nitrate Negative (Negative) Urine Bilirubin Negative (Negative) Urine Urobilinogen 0.2 (<2.0) mg/dL Leukocyte Esterase Rfl Negative (Negative) ALLEN/UL Imaging Data Radiologist's impression: ITS Impressions Abdomen/Pelvis CT 10/01/24 11:16 IMPRESSION: 1. Acute uncomplicated appendicitis. Discharge Plan Discharge Clinical Impression: Acute appendicitis Qualifiers: Acute appendicitis type: with localized peritonitis Appendicitis gangrene presence: without gangrene Appendicitis perforation presence: without perforation Appendicitis abscess presence: without abscess Qualified Code(s): K 35.30 - Acute appendicitis with localized peritonitis, without perforation or gangrene Patient Disposition: Still a Patient Condition: Stable Time of Disposition: 14:21
[2024-10-01 12:10] LABS: INR 0.9; Prothrombin Time 12.6 Seconds (11.1-14.7)
--- OUTSIDE RECORDS SUMMARY | 2024-10-01 12:29 | XMS_ITS | Clinical Summary ---
Author Organization [facility] [employer] Address [address] [place] [address] Care Team Providers Care Federal Mediation Commissioner Name Role Phone Maru Montiel MD Primary Care Provider [phone] Source Comments [facility] [employer],non-owned Affiliates and Associated Physician Practices is amultiple site organization consisting of ambulatory clinics and hospital sitesin [place], [place], [place] and [place]. This disclosure is being madepursuant to the Care Everywhere program and may not contain all information available regarding this patient. Last updated 17.[facility] [employer] Allergies No known active allergies Medications * [...] 7 - 26 mg/dL 10/12/2022 6:07 AM [facility] Creatinine 0.92 0.71 - 1.16 mg/dL 10/12/2022 6:07 AM [facility] Sodium 137 136 - 145 mmol/L 10/12/2022 6:07 AM [facility] Potassium 4.0 3.5 - 4.5 mmol/L 10/12/2022 6:07 AM [facility] Chloride 106 98 - 107 mmol/L 10/12/2022 6:07 AM [facility] CO2 24 22 - 29 mmol/L 10/12/2022 6:07 AM [facility] Glucose 125(H) 70 - 115 mg/dL 10/12/2022 6:07 AM [facility] Calcium 8.6 8.4 - 10.2 mg/dL 10/12/2022 6:07 AM [facility] Anion Gap 11 8 - 18 10/12/2022 6:07 AM [facility] BUN/Creatinine Ratio 14 7 - 23 10/12/2022 6:07 AM [facility] Osmolality Calculated 286 270 - 300 mOsm/kg 10/12/2022 6:07 AM [facility] eGFR by CKD-EPI >90 >=90 mL/min/1.7 3 m2 10/12/2022 6:07 AM [facility] Blood BLOOD SPECIMEN / Unknown Lab Venipuncture / Unknown 10/12/2022 3:02 AM CDT 10/12/2022 5:39 AM T Rashawn Burgess DO LAB - CHEMISTRY ORDERABLES Fin al Result [facility] [address] [place] [address], [facility] [phone] from Last 3 Months or Most Recently Relevant to Health Maintenance Insurance [facility] * Guarantor: PITER GOODSON Account Type Relation to Patient Date of Phone Billing Address Personal/Family [address] [place] [address] [facility] [employer] * Guarantor: PITER GOODSON Account Type Relation to Patient Date of Phone Billing Address Personal/Family [address] [place] [address] * Guarantor: PITER OGODSON Account Type Relation to Patient Date of Phone Billing Address Personal/Family [address] [place] [address] Advance Directives * Full Code (Latest Code Status on File) Date Activated Date Inactivated Comments 10/11/2022 2:22 PM 10/12/2022 4:06 PM Care Teams Federal Mediation Commissioner Relationship Specialty Start Date End Date Maru Montiel MD [address] [place] [id number] PCP - General Family Medicine 10/11/22
--- OUTSIDE RECORDS SUMMARY | 2024-10-01 12:29 | XMS_ITS | Continuity of Care Document ---
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 It does not include entries that were removed or entered in error. Problem Status Onset Date Problem Type Date of Resolution Comments Source Allergic rhinitis Active Condition [facility] Chronic post-traumatic stress disorder Active Condition [facility] Depression Active Condition [facility] Exposure to potentially hazardous substance Active Condition [facility] Hyperlipidemia Active Condition [facility] Nightmares Active Condition [facility] Restless legs Active Condition [facility] Sleep apnea Active Condition [facility] Tinnitus Active Condition [facility] Tobacco use Active Condition [facility] Diagnosis: ICD-10-CM F43.12 Post-traumatic stress disorder, chronic Active Diagnosis [facility] Diagnosis: ICD-10-CM F41.9 Anxiety disorder, unspecified Active Diagnosis [facility] Diagnosis: ICD-10-CM Z02.5 Encounter for examination for participation in sport Active Diagnosis [facility] Diagnosis: ICD-10-CM 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 Diagnosis: ICD-10-CM G47.39 Other sleep apnea Active Diagnosis [facility] Diagnosis: ICD-10-CM F32.A Depression, unspecified Active Diagnosis [facility] Diagnosis: ICD-10-CM F43.9 Reaction to severe stress, unspecified Active Diagnosis [facility] Diagnosis: ICD-10-CM F51.5 Nightmare disorder Active Diagnosis [facility] Diagnosis: ICD-10-CM G47.00 Insomnia, unspecified Active Diagnosis [facility] Diagnosis: ICD-10-CM L98.9 Disorder of the skin and subcutaneous tissue, unspecified Active Diagnosis [facility] Medications Combined list of outpatient medications [...] DO NOT CRUSH OR CHEW. ORAL 08/28/2024 [id number] EDVIN SOUZA 2024 90 [facility] BUPROPION HCL 300MG 24HR TAB,SA TAKE ONE TABLET BY MOUTH ONCE A DAY SWALLOW WHOLE - DO NOT CRUSH OR CHEW. ORAL ACTIVE 09/13/2025 [id number] 5 EDVIN SOUZA 2024 90 [facility] BUPROPION HCL 75MG TAB TAKE ONE TABLET BY MOUTH EVERY MORNING FOR DEPRESSI ON ORAL DISCONT INUED BY PROVIDE R 05/02/2025 [id number] 5 EDVIN SOUZA 2024 90 [facility] FLUTICASONE PROPIONATE 50MCG/SPRAY SOLN,NASAL, 16GM INSTILL 2 SPRAYS IN NOSTRIL( S) ONCE A DAY (MUST BE USED DIRECTED FOR MINIMUM OF 21 DAYS TO PROVIDE ADEQUATE BENEFITS ) NASAL ACTIVE 04/15/2025 [id number] 5 JANES ANN 2024 1 [facility] FLUTICASONE PROPIONATE 50MCG/SPRAY SOLN,NASAL, 16GM INSTILL 2 SPRAYS IN NOSTRIL( S) ONCE A DAY (MUST BE USED DIRECTED FOR MINIMUM OF 21 DAYS TO PROVIDE ADEQUATE BENEFITS ) NASAL DISCONT INUED 08/23/2024 [id number] 4 JNAES ANN 2023 3 [facility] Jose Cruz GABAPENTIN 300MG CAP TAKE ONE CAPSULE BY MOUTH ONCE A DAY FOR NERVE PAIN ORAL ACTIVE 11/24/2024 [id number] 5 JANES ANN 2023 90 [facility] Cruz PRAZOSIN HCL 1MG CAP TAKE ONE CAPSULE BY MOUTH ONCE A DAY MAY CAUSE DIZZINES S OR DROWSINE SS. ORAL DISCONT INUED (EDIT) 01/18/2025 [id number] 5 JANES ANN 2023 90 [facility] Jose Cruz PRAZOSIN HCL 2MG CAP TAKE ONE CAPSULE BY MOUTH AT BEDTIME NEEDED FOR NIGHTMAR ES MAY CAUSE DIZZINES S OR DROWSINE SS. ORAL SUSPEND ED 05/02/2025 [id number] 5 EDVIN SOUZA 2024 90 [facility] Jose Cruz SILDENAFIL CITRATE 100MG TAB TAKE ONE-HALF TABLET BY MOUTH ONE HOUR PRIOR TO SEXUAL ACTIVITY FOR ERECTILE DYSFUNCT ION NEEDED - LIMIT 6 DOSES PER 30 DAYS ORAL ACTIVE 01/18/2025 [id number] 5 JANES ANN 2023 9 [facility] SULFAMETHOX AZOLE 800MG/TRIME THOPRIM 160MG TAB TAKE 1 TABLET BY MOUTH EVERY 12 HOURS FOR 10 DAYS FOR SKIN OR SOFT TISSUE INFECTIO N TAKE WITH WATER/AV OID SUNLIGHT . ORAL 09/22/2023 [id number] JANES ANN 2023 20 [facility] Immunizations Combined list of available immunizations from the Department of Defense and [facility] facilities. Immunization Series Date Given Administered By Site Reaction Lot Number CVX Code Drug Hospitality Host Status Comments Source INFLUENZA, SPLIT VIRUS, TRIVALENT, PF 2024 CHAYA ALVES RIGHT DELTO ID [id number] 140 complet ed [facility] ZOSTER RECOMBINANT 1 2024 CHAYA ALVES LEFT DELTO ID [id number] 187 complet ed [facility] PNEUMOCOCCAL CONJUGATE PCV20, POLYSACCHARID E [id number] CONJUGATE, ADJUVANT, PF 2023,MAY D RIGHT DELTO ID [id number] 216 complet ed [facility] TDAP 1 2022 115 complet ed HISTORICA L INFORMATI ON - FROM OTHER REGISTRY, [facility] Results Combined list of recent [...] additional information , please refer to http://educ ation.Saberr .com/faq/ TotalTestos teroneLCMSM [id number] (This link is being provided for information al/ educational purposes only.) This test was developed and its analytical performance characteris tics have been determined by [employer] [place], [place]. It has not been cleared or approved by the U.S. Food and Drug Administrat ion. This assay has been validated pursuant to the CLIA regulations and is used for clinical purposes. Test Performed by [facility], [facility], [address] [place], [place] Dewey Rhoades M.D., Ph.D., Director of Laboratorie s , CLIA [id number] Ordering Provider: LESIA ANN Report Released Date/Time: Apr 04, 2024 11:00 AM Reporting Lab: [facility] [address] [facility] [address] Performing Lab: [facility] [address] [facility] TESTOSTE SANGEETA, FREE PANEL ALBUMIN [MASS/VOLU ME] IN SERUM OR PLASMA 4.1 g/dL 3.6 - 5.1 05/01 Specimen Type: SERUM Comment: For additional information , please refer to http://Dr Lal [employer].Wescoal Group/faq/ TotalTestos teroneLCMSM [id number] (This link is being provided for information al/ educational purposes only.) This test was developed and its analytical performance characteris tics have been determined by [employer] [place], [place]. It has not been cleared or approved by the U.S. Food and Drug Administrat ion. This assay has been validated pursuant to the CLIA regulations and is used for clinical purposes. Test Performed by [email or web address], [address] [place] [address] Dewey Rhoades M.D., Ph.D., Director of Laboratorie s , CLIA [id number] Ordering Provider: LESIA ANN Report Released Date/Time: Apr 04, 2024 11:00 AM Reporting Lab: [facility] [address] [facility] [address] Performing Lab: [facility] [id number] [place] [address] [facility] TESTOSTE SANGEETA, FREE PANEL TESTOSTERO NE FREE [MASS/VOLU ME] IN SERUM OR PLASMA 47.8 pg/mL 46.0 - 224.0 05/01 Specimen Type: SERUM Comment: For additional information , please refer to http://educ Omnisio.Saberr .ViOptix/faq/ TotalTestos teroneLCMSM [id number] (This link is being provided for information al/ educational purposes only.) This test was developed and its analytical performance characteris tics have been determined by [employer] [place], [place]. It has not been cleared or approved by the U.S. Food and Drug Administrat ion. This assay has been validated pursuant to the CLIA regulations and is used for clinical purposes. Test Performed by [facility] [employer], [address] [place] [address] Dewey Rhoades M.D., Ph.D., Director of Laboratorie s , CLIA [id number] Ordering Provider: LESIA ANN Report Released Date/Time: Apr 04, 2024 11:00 AM Reporting Lab: [address] [address] Performing Lab: [address] [facility] TESTOSTE SANGEETA, FREE PANEL TESTOSTERO NE.FREE+WE AKLY BOUND [MASS/VOLU ME] IN SERUM OR PLASMA 89.9 ng/dL 110.0 - 575.0 05/01 L Specimen Type: SERUM Comment: For additional information , please refer to http://Dr Lal [employer].Wescoal [employer]/faq/ TotalTestos teroneLCMSM [id number] (This link is being provided for information al/ educational purposes only.) This test was developed and its analytical performance characteris tics have been determined by [employer] [place], [place]. It has not been cleared or approved by the U.S. Food and Drug Administrat ion. This assay has been validated pursuant to the CLIA regulations and is used for clinical purposes. Test Performed by [facility], [employer], [address] [place] [address] Dewey Rhoades M.D., Ph.D., Director of Laboratorie s , CLIA [id number] Ordering Provider: LESIA ANN Report Released Date/Time: Apr 04, 2024 11:00 AM Reporting Lab: [address] [address] Performing Lab: [address] [facility] TESTOSTE SANGEETA, FREE PANEL SEX HORMONE BINDING GLOBULIN [MOLES/VOL UME] IN SERUM OR PLASMA 41 nmol/L 10 - 50 05/01 Specimen Type: SERUM Comment: For additional information , please refer to http://educ Omnisio.Wescoal Group/faq/ TotalTestos teroneLCMSM [id number] (This link is being provided for information al/ educational purposes only.) This test was developed and its analytical performance characteris tics have been determined by [employer] [place], [place]. It has not been cleared or approved by the U.S. Food and Drug Administrat ion. This assay has been validated pursuant to the CLIA regulations and is used for clinical purposes. Test Performed by [facility], [employer], [address] [place], [place] Dewey Rhoades M.D., Ph.D., Director of Laboratorie s , CLIA [id number] Ordering Provider: LESIA ANN Report Released Date/Time: Apr 04, 2024 11:00 AM Reporting Lab: [facility] [address] [facility] [address] Performing Lab: [facility] [address] [facility] CBC LEUKOCYTES [#/VOLUME] IN BLOOD BY AUTOMATED COUNT 6.4 10*3/uL 3.6 - 11.2 08/22 Specimen Type: BLOOD No comment entered. Ordering Provider: LESIA ANN Report Released Date/Time: Aug 23, 2023 02:03 PM Reporting Lab: [facility] [facility] [address] Performing Lab: [facility]1 [facility] [phone] [place] [address] DIVISION CBC ERYTHROCYT ES [#/VOLUME] IN BLOOD BY AUTOMATED COUNT 4.68 10*6/uL 4.10 - 5.70 08/22 Specimen Type: BLOOD No comment entered. Ordering Provider: LESIA ANN Report Released Date/Time: Aug 23, 2023 02:03 PM Reporting Lab: [facility] [address] Performing Lab: [facility] [address] CBC HEMOGLOBIN [MASS/VOLU ME] IN BLOOD 15.3 g/dL 13.1 - 16.8 08/22 Specimen Type: BLOOD No comment entered. Ordering Provider: LESIA ANN SAY Report Released Date/Time: Aug 23, 2023 02:03 PM Reporting Lab: [facility]1 [place] [address] Performing Lab: [facility] DIV[facility] CBC HEMATOCRIT [VOLUME FRACTION] OF BLOOD 44.4 38.2 - 48.4 08/22 Specimen Type: BLOOD No comment entered. Ordering Provider: LESIA ANN SAY Report Released Date/Time: Aug 23, 2023 02:03 PM Reporting Lab: [facility] [place] [address] Performing Lab: [facility] DIVISION CBC MCV [ENTITIC VOLUME] BY AUTOMATED COUNT 94.9 fL 80.0 - 100.0 08/22 Specimen Type: BLOOD No comment entered. Ordering Provider: LESIA ANN SAY Report Released Date/Time: Aug 23, 2023 02:03 PM Reporting Lab: [facility]1 [place] [address] Performing Lab: [facility] DIVISION CBC MCH [ENTITIC MASS] BY AUTOMATED COUNT 32.7 pg 27.0 - 34.0 08/22 Specimen Type: BLOOD No comment entered. Ordering Provider: LESIA ANN SAY Report Released Date/Time: Aug 23, 2023 02:03 PM Reporting Lab: [facility]1 [place] [address] Performing Lab: [facility] DIVISION CBC MCHC [MASS/VOLU ME] BY AUTOMATED COUNT 34.5 g/dL 33.0 - 36.0 08/22 Specimen Type: BLOOD No comment entered. Ordering Provider: LESIA ANN SAY Report Released Date/Time: Aug 23, 2023 02:03 PM Reporting Lab: [facility]1 [place] [address] Performing Lab: [facility] CBC PLATELETS [#/VOLUME] IN BLOOD BY AUTOMATED COUNT 219 10*3/uL 150 - 400 08/22 Specimen Type: BLOOD No comment entered. Ordering Provider: LESIA ANN SAY Report Released Date/Time: Aug 23, 2023 02:03 PM Reporting Lab: [facility] [place] [address] Performing Lab: [facility] DIVISION CBC PLATELET MEAN VOLUME [ENTITIC VOLUME] IN BLOOD BY AUTOMATED COUNT 8.5 fL 7.5 - 11.2 08/22 Specimen Type: BLOOD No comment entered. Ordering Provider: LESIA ANN SAY Report Released Date/Time: Aug 23, 2023 02:03 PM Reporting Lab: [facility]1 [place] [address] Performing Lab: [facility] DIVISION CBC ERYTHROCYT E DISTRIBUTI ON WIDTH [RATIO] BY AUTOMATED COUNT 12.5 11.8 - 15.1 08/22 Specimen Type: BLOOD No comment entered. Ordering Provider: LESIA ANN SAY Report Released Date/Time: Aug 23, 2023 02:03 PM Reporting Lab: [facility]1 [place] [address] Performing Lab: [facility] [facility] CBC LYMPHOCYTE S/100 LEUKOCYTES IN BLOOD BY AUTOMATED COUNT 27 08/22 Specimen Type: BLOOD No comment entered. Ordering Provider: LESIA ANN SAY Report Released Date/Time: Aug 23, 2023 02:03 PM Reporting Lab: [facility] [address] Performing Lab: [facility] DIVISION CBC MONOCYTES/ 100 LEUKOCYTES IN BLOOD BY AUTOMATED COUNT 10 08/22 Specimen Type: BLOOD No comment entered. Ordering Provider: LESIA ANN SAY Report Released Date/Time: Aug 23, 2023 02:03 PM Reporting Lab: [facility] [address] Performing Lab: [facility] #[address] DIVISION CBC NEUTROPHIL S/100 LEUKOCYTES IN BLOOD BY AUTOMATED COUNT 58 08/22 Specimen Type: BLOOD No comment entered. Ordering Provider: LESIA ANN SAY Report Released Date/Time: Aug 23, 2023 02:03 PM Reporting Lab: [facility] [place] [address] Performing Lab: [facility] [facility] [phone] DIVISION CBC EOSINOPHIL S/100 LEUKOCYTES IN BLOOD BY AUTOMATED COUNT 3 08/22 Specimen Type: BLOOD No comment entered. Ordering Provider: LESIA ANN SAY Report Released Date/Time: Aug 23, 2023 02:03 PM Reporting Lab: [facility] [address] Performing Lab: [facility]1 [facility] [id number] [place] [address] DIVISION CBC BASOPHILS/ 100 LEUKOCYTES IN BLOOD BY AUTOMATED COUNT 1 08/22 Specimen Type: BLOOD No comment entered. Ordering Provider: LESIA ANN SAY Report Released Date/Time: Aug 23, 2023 02:03 PM Reporting Lab: [facility]1 [place] [address] Performing Lab: [facility] DIVISION CBC LYMPHOCYTE S [#/VOLUME] IN BLOOD BY AUTOMATED COUNT 1.75 10*3/uL 0.77 - 4.50 08/22 Specimen Type: BLOOD No comment entered. Ordering Provider: LESIA ANN SAY Report Released Date/Time: Aug 23, 2023 02:03 PM Reporting Lab: [facility]1 [place] [address] Performing Lab: [facility] DIVISION CBC MONOCYTES [#/VOLUME] IN BLOOD BY AUTOMATED COUNT 0.66 10*3/uL 0.19 - 0.80 08/22 Specimen Type: BLOOD No comment entered. Ordering Provider: LESIA ANN SAY Report Released Date/Time: Aug 23, 2023 02:03 PM Reporting Lab: [facility]1 [place] [address] Performing Lab: [facility] DIVISION CBC NEUTROPHIL S [#/VOLUME] IN BLOOD BY AUTOMATED COUNT 3.71 10*3/uL 2.10 - 8.00 08/22 Specimen Type: BLOOD No comment entered. Ordering Provider: LESIA ANN SAY Report Released Date/Time: Aug 23, 2023 02:03 PM Reporting Lab: [facility]1 [place] [address] Performing Lab: [facility] DIVISION CBC EOSINOPHIL S [#/VOLUME] IN BLOOD BY AUTOMATED COUNT 0.16 10*3/uL 0.00 - 0.60 08/22 Specimen Type: BLOOD No comment entered. Ordering Provider: LESIA ANN SAY Report Released Date/Time: Aug 23, 2023 02:03 PM Reporting Lab: [facility]1 [place] [address] Performing Lab: [facility] DIVISION CBC BASOPHILS [#/VOLUME] IN BLOOD BY AUTOMATED COUNT 0.08 10*3/uL 0.00 - 0.20 08/22 Specimen Type: BLOOD No comment entered. Ordering Provider: LESIA ANN SAY Report Released Date/Time: Aug 23, 2023 02:03 PM Reporting Lab: [facility] [place] [address] Performing Lab: [facility] DIVISION COMPREHE NSIVE METABOLI C PANEL CREATININE [MASS/VOLU ME] IN SERUM OR PLASMA 1.09 mg/dL 0.70 - 1.30 08/22 Specimen Type: PLASMA Comment: No hemolysis noted. Ordering Provider: LESIA ANN SAY Report Released Date/Time: Aug 23, 2023 02:03 PM Reporting Lab: [facility] [place] [address] Performing Lab: [facility] DIVISION COMPREHE NSIVE METABOLI C PANEL UREA NITROGEN [MASS/VOLU ME] IN SERUM OR PLASMA 9.1 mg/dL 9.0 - 25.0 08/22 Specimen Type: PLASMA Comment: No hemolysis noted. Ordering Provider: ELSIA ANN SAY Report Released Date/Time: Aug 23, 2023 02:03 PM Reporting Lab: [facility] [place] [address] Performing Lab: [facility] DIVISION COMPREHE NSIVE METABOLI C PANEL GLUCOSE [MASS/VOLU ME] IN SERUM OR PLASMA 94 mg/dL 72 - 99 08/22 Specimen Type: PLASMA Comment: No hemolysis noted. Ordering Provider: LESIA ANN SAY Report Released Date/Time: Aug 23, 2023 02:03 PM Reporting Lab: [facility] [place] [address] Performing Lab: [facility] DIVISION COMPREHE NSIVE METABOLI C PANEL SODIUM [MOLES/VOL UME] IN SERUM OR PLASMA 140 meq/L 136 - 145 08/22 Specimen Type: PLASMA Comment: No hemolysis noted. Ordering Provider: LESIA ANN SAY Report Released Date/Time: Aug 23, 2023 02:03 PM Reporting Lab: [facility] [place] [address] Performing Lab: [facility] DIVISION COMPREHE NSIVE METABOLI C PANEL POTASSIUM [MOLES/VOL UME] IN SERUM OR PLASMA 4.1 meq/L 3.5 - 5.0 08/22 Specimen Type: PLASMA Comment: No hemolysis noted. Ordering Provider: LESIA ANN SAY Report Released Date/Time: Aug 23, 2023 02:03 PM Reporting Lab: [facility] [place] [address] Performing Lab: [facility] DIVISION COMPREHE NSIVE METABOLI C PANEL CHLORIDE [MOLES/VOL UME] IN SERUM OR PLASMA 103 meq/L 98 - 107 08/22 Specimen Type: PLASMA Comment: No hemolysis noted. Ordering Provider: LESIA ANN SAY Report Released Date/Time: Aug 23, 2023 02:03 PM Reporting Lab: [facility] [place] [address] Performing Lab: [facility] DIVISION COMPREHE NSIVE METABOLI C PANEL CARBON DIOXIDE, TOTAL [MOLES/VOL UME] IN SERUM OR PLASMA 25 meq/L 22 - 31 08/22 Specimen Type: PLASMA Comment: No hemolysis noted. Ordering Provider: LESIA ANN SAY Report Released Date/Time: Aug 23, 2023 02:03 PM Reporting Lab: [facility] [place] [address] Performing Lab: [facility] DIVISION COMPREHE NSIVE METABOLI C PANEL CALCIUM [MASS/VOLU ME] IN SERUM OR PLASMA 9.3 mg/dL 8.4 - 10.4 08/22 Specimen Type: PLASMA Comment: No hemolysis noted. Ordering Provider: LESIA ANN SAY Report Released Date/Time: Aug 23, 2023 02:03 PM Reporting Lab: [facility] [place] [address] Performing Lab: [facility] DIVISION COMPREHE NSIVE METABOLI C PANEL PROTEIN [MASS/VOLU ME] IN SERUM OR PLASMA 7.6 g/dL 6.0 - 8.6 08/22 Specimen Type: PLASMA Comment: No hemolysis noted. Ordering Provider: LESIA ANN SAY Report Released Date/Time: Aug 23, 2023 02:03 PM Reporting Lab: [facility] [place] [address] Performing Lab: [facility] DIVISION COMPREHE NSIVE METABOLI C PANEL ALBUMIN [MASS/VOLU ME] IN SERUM OR PLASMA 4.4 g/dL 3.4 - 5.0 08/22 Specimen Type: PLASMA Comment: No hemolysis noted. Ordering Provider: LESIA ANN SAY Report Released Date/Time: Aug 23, 2023 02:03 PM Reporting Lab: [facility] [place] [address] Performing Lab: [facility] DIVISION COMPREHE NSIVE METABOLI C PANEL BILIRUBIN. TOTAL [MASS/VOLU ME] IN SERUM OR PLASMA 0.7 mg/dL 0.2 - 1.2 08/22 Specimen Type: PLASMA Comment: No hemolysis noted. Ordering Provider: LESIA ANN SAY Report Released Date/Time: Aug 23, 2023 02:03 PM Reporting Lab: [facility] [place] [address] Performing Lab: [facility] DIVISION COMPREHE NSIVE METABOLI C PANEL ALKALINE PHOSPHATAS E [ENZYMATIC ACTIVITY/V OLUME] IN SERUM OR PLASMA 97 U/L 40 - 150 08/22 Specimen Type: PLASMA Comment: No hemolysis noted. Ordering Provider: LESIA ANN SAY Report Released Date/Time: Aug 23, 2023 02:03 PM Reporting Lab: [facility] [place] [address] Performing Lab: [facility] DIVISION COMPREHE NSIVE METABOLI C PANEL ASPARTATE AMINOTRANS FERASE [ENZYMATIC ACTIVITY/V OLUME] IN SERUM OR PLASMA 33 U/L 5 - 34 08/22 Specimen Type: PLASMA Comment: No hemolysis noted. Ordering Provider: LESIA ANN SAY Report Released Date/Time: Aug 23, 2023 02:03 PM Reporting Lab: [facility] [place] [address] Performing Lab: [facility] DIVISION COMPREHE NSIVE METABOLI C PANEL ALANINE AMINOTRANS FERASE [ENZYMATIC ACTIVITY/V OLUME] IN SERUM OR PLASMA 29 U/L 8 - 40 08/22 Specimen Type: PLASMA Comment: No hemolysis noted. Ordering Provider: LESIA ANN SAY Report Released Date/Time: Aug 23, 2023 02:03 PM Reporting Lab: [facility] [address] Performing Lab: [facility] [place] [id number] DIVISION COMPREHE NSIVE METABOLI C PANEL GLOMERULAR FILTRATION RATE/1.73 SQ M.PREDICTE D [VOLUME RATE/AREA] IN SERUM, PLASMA OR BLOOD BY CREATININE -BASED FORMULA (CKD-EPI 2020) 80.15 60 08/22 Specimen Type: PLASMA Comment: No hemolysis noted. Ordering Provider: LESIA ANN SAY Report Released Date/Time: Aug 23, 2023 02:03 PM Reporting Lab: [facility] [place] [address] Performing Lab: [facility] [facility] HEP C Ab HCV Ab (STL) HEPATITIS C VIRUS AB [PRESENCE] IN SERUM Nonreact marysol 08/22 Specimen Type: SERUM No comment entered. Ordering Provider: LESIA ANN SAY Report Released Date/Time: Aug 23, 2023 02:03 PM Reporting Lab: [facility] [address] [place] [id number] Performing Lab: [facility] [address] [place] [phone] [facility] HGA1C HEMOGLOBIN A1C/HEMOGL OBIN.TOTAL IN BLOOD 5.6 4.0 - 6.0 08/22 Specimen Type: BLOOD No comment entered. Ordering Provider: LESIA ANN SAY Report Released Date/Time: Aug 23, 2023 02:03 PM Reporting Lab: [facility] [phone] Performing Lab: [facility] [place] [phone] DIVISION HIV COMBO FOURTH GENERATI ON (STL) HIV 1+2 AB+HIV1 P24 AG [PRESENCE] IN SERUM OR PLASMA BY IMMUNOASSA Y Nonreact marysol 08/22 Specimen Type: SERUM No comment entered. Ordering Provider: LESIA ANN Report Released Date/Time: Aug 23, 2023 02:03 PM Reporting Lab: [facility] [address] [place] [phone] Performing Lab: [place] [address] [place] [id number] LIPID PANEL (STL) CHOLESTERO L [MASS/VOLU ME] IN SERUM OR PLASMA 220 mg/dL 0 - 200 08/22 H Specimen Type: PLASMA Comment: No hemolysis noted. Ordering Provider: LESIA ANN Report Released Date/Time: Aug 23, 2023 02:03 PM Reporting Lab: [facility] [place] [address] Performing Lab: [facility] LIPID PANEL (STL) TRIGLYCERI DE [MASS/VOLU ME] IN SERUM OR PLASMA 99 mg/dL 0 - 150 08/22 Specimen Type: PLASMA Comment: No hemolysis noted. Ordering Provider: LESIA ANN Report Released Date/Time: Aug 23, 2023 02:03 PM Reporting Lab: [facility] [place] [address] Performing Lab: [facility] LIPID PANEL (STL) CHOLESTERO L IN LDL [MASS/VOLU ME] IN SERUM OR PLASMA BY CALCULATIO N 129 mg/dL 08/22 Specimen Type: PLASMA Comment: No hemolysis noted. Ordering Provider: LESIA ANN Report Released Date/Time: Aug 23, 2023 02:03 PM Reporting Lab: [facility] [place] [address] Performing Lab: [facility] DIVISION LIPID PANEL (STL) CHOLESTERO L IN HDL [MASS/VOLU ME] IN SERUM OR PLASMA 71 mg/dL 40 08/22 Specimen Type: PLASMA Comment: No hemolysis noted. Ordering Provider: LESIA ANN SAY Report Released Date/Time: Aug 23, 2023 02:03 PM Reporting Lab: [facility] [place] [address] Performing Lab: [facility] DIVISION TSH W/ REFLEX FT4 (L) THYROTROPI N [UNITS/VOL UME] IN SERUM OR PLASMA 1.216 u[IU]/mL 0.470 - 5.000 08/22 Specimen Type: PLASMA No comment entered. Ordering Provider: LESIA ANN SAY Report Released Date/Time: Aug 23, 2023 02:03 PM Reporting Lab: [facility] [place] [address] Performing Lab: [facility] DIVISION PROST. SPECIFIC AG.(PB-S TL) PROSTATE [...] Aug 23, 2023 03:25 PM Reporting Lab: [facility] [address] [facility] [phone] Performing Lab: [facility] [address] [facility] [phone] [facility] Vital Signs Combined list of inpatient and outpatient Vital Signs from Department of Defense and Veterans Affairs, ranging from 12 months to all on record, depending upon the facility. Vital Sign Value Date Comments Source SYSTOLIC BLOOD PRESSURE 126 04/04/2024 10:20:03 [facility] DIASTOLIC BLOOD PRESSURE 78 04/04/2024 10:20:03 [facility] PULSE OXIMETRY 98 04/04/2024 10:20:03 [facility] WEIGHT 249.6 04/04/2024 10:20:[address] [facility] BMI 36 kg/m2 04/04/2024 10:20:03 [facility] PAIN 0 04/04/2024 10:20:03 [facility] TEMPERATURE 98.4 04/04/2024 10:20:03 [facility] PULSE 62 04/04/2024 10:20:03 [facility] RESPIRATION 18 04/04/2024 10:20:03 [facility] SYSTOLIC BLOOD PRESSURE 128 01/18/2024 15:32:01 [facility] DIASTOLIC BLOOD PRESSURE 76 01/18/2024 15:32:01 [facility] PULSE OXIMETRY 95 01/18/2024 15:32:01 [facility] WEIGHT 252 01/18/2024 15:32:[address] [facility] BMI 36 kg/m2 01/18/2024 15:32:01 [facility] PAIN 0 01/18/2024 15:32:01 [facility] HEIGHT 70 01/18/2024 15:32:01 [facility] TEMPERATURE 98.9 01/18/2024 15:32:01 [facility] PULSE 88 01/18/2024 15:32:01 [facility] RESPIRATION 20 01/18/2024 15:32:01 [facility] Encounters Combined list of: 1) Encounters from Department of [facility] facilities going backup to the last 18 months, not all VA inpatient encounters are included; 2) Encounters from the Department of [facility] facilities going backup to 280 months. Location Location Details Encounter Type Encounter Number Reason For Visit Attending Provider ADM Date DC Date Status Disposition Source [facility] Outpatient Encounter [id number] 07/20 [facility] Outpatient Encounter [id number] 08/03 [facility] Outpatient Encounter [id number] 08/21 [facility] Outpatient Encounter [id number] 08/22 [facility] OFFICE O/P NEW MOD 45 MIN [id number] Diagnos is: ICD-10- CM L98.9 Disorde r of the skin and subcuta neous tissue, unspeci fied KRIS ANN 08/22 [facility] Outpatient Encounter [id number] 08/22 [facility] Outpatient Encounter [id number] 08/23 [facility] Outpatient Encounter [id number] 09/15 [facility] PSYTX W PT 30 MINUTES [id number] Diagnos is: ICD-10- CM F32.A Depress ion, unspeci fied MILLY JAMES NNIFER A 09/15 [facility] PSYTX W PT 30 MINUTES [id number] Diagnos is: ICD-10- CM G47.00 Insomni a, unspeci fied MILLY JAMES NNIFER A 09/25 [facility] Outpatient Encounter [id number] KRIS ANN DELILAHY 10/03 [facility] PSYTX W PT 30 MINUTES [id number] Diagnos is: ICD-10- CM G47.00 Insomni a, unspeci fied MILLY JAMES NNIFER A 10/20 [facility] Outpatient Encounter [id number] 11/21 [facility] Outpatient Encounter [id number] 11/22 [facility] Outpatient Encounter [id number] 11/22 [facility] PSYTX W PT 30 MINUTES [id number] Diagnos is: ICD-10- CM G47.00 Insomni a, unspeci fied GUERRERO RODRIGUEZ E 12/15 [facility] Outpatient Encounter [id number] 12/15 [facility] Outpatient Encounter [id number] VALENTINA CASTILLO T 12/18 [facility] Outpatient Encounter [id number] 12/20 [facility] Outpatient Encounter [id number] 12/20 [facility] POS AIRWAY PRESSURE CPAP [id number] Diagnos is: ICD-10- CM G47.39 Other sleep apnea REGINALD COOPER MD 12/21 [facility] Outpatient Encounter [id number] VALENTINA CASTILLO T 01/05 [facility] OFFICE O/P EST MOD 30 MIN [id number] Diagnos is: ICD-10- CM F51.5 Nightma re KRIS GreshamY 01/17 [facility] Outpatient Encounter [id number] 01/19 [facility] PSYTX W PT 30 MINUTES [id number] Diagnos is: ICD-10- CM F43.9 Reactio n to severe stress, unspeci GUERRERO Manzano 02/07 [facility] Outpatient Encounter [id number] 02/07 [facility] Outpatient Encounter [id number] 02/23 [facility] Outpatient Encounter [id number] 03/02 [facility] PATH CLIN CONSLTJ MOD 21-40 [id number] Diagnos is: ICD-10- CM F32.A Depress ion, unspeci fied MANJU,WAR RUTH G III 03/15 [facility] Outpatient Encounter [id number] VALENTINA CASTILLO T 03/16 [facility] Outpatient Encounter [id number] 03/16 [facility] Outpatient Encounter [id number] 03/21 [facility] Outpatient Encounter [id number] VALENTINA CASTILLO T 03/21 [facility] OFFICE O/P EST MOD 30 MIN [id number] Diagnos is: ICD-10- CM G47.39 Other sleep apnea KRIS ANN 04/04 [facility] Outpatient Encounter [id number] 05/01 [facility] OFFICE O/P NEW MOD 45 MIN [id number] Diagnos is: ICD-10- CM F43.12 Post-tr aumatic stress disorde r, Heladio Connelly 05/01 [facility] Outpatient Encounter [id number] 05/01 [facility] Outpatient Encounter [id number] JULIET SEVILLA M 05/07 [facility] Outpatient Encounter [id number] UMM PARRA M 05/08 [facility] Outpatient Encounter [id number] 05/08 [facility] Outpatient Encounter [id number] MARTINEZ ULLOA ORAH A 05/09 [facility] Outpatient Encounter [id number] CONDOR,MARTINEZ ORAH A 05/09 [facility] Outpatient Encounter [id number] JUANIOR,MARTINEZ ORAH A 05/09 [facility] PSYCH DIAGNOSTIC EVALUATION [id number] Diagnos is: ICD-10- CM F32.89 Other specifi ed depress marysol episode s JACKELIN,CHR ISTOPHER KANWAL 05/10 [facility] Outpatient Encounter [id number] VALENTINA CASTILLO 05/11 [facility] Outpatient Encounter [id number] Diagnos is: ICD-10- CM E29.1 Testicu lar hypofun ction NASEER,HUM AIRA 05/11 [facility] OFFICE O/P EST MOD 30 MIN [id number] Diagnos is: ICD-10- CM F43.12 Post-tr aumatic stress disorde r, chronic ALIZADEH,A JANES 05/30 [facility] Outpatient Encounter [id number] 06/12 [facility] EDU&TRN PT SLF-MGMT NQHP 2-4 [id number] Diagnos is: ICD-10- CM Z02.5 Encount er for examina tion for partici pation in sport Gaudencio LATIF P 06/18 [facility] ACTIVITY THERAPY, PER 15 MIN [id number] Diagnos is: ICD-10- CM F41.9 Anxiety disorde r, unspeci fied Gaudencio LATIF P 06/18 [facility] OFFICE O/P EST MOD 30 MIN [id number] Diagnos is: ICD-10- CM F43.12 Post-tr aumatic stress disorde r, chronic ALIZADEH,A LI 09/12 [facility] Outpatient Encounter [id number] CRISTÓBAL CANTU D 09/12 [facility] Outpatient Encounter [id number] JACKY VALENCIA 09/25 [facility] Social History Combined list of available smoking, tobacco, and other social history from Department of Defense and Veterans Affairs facilities. Social History Type Response Date Comment Sourc e Tobacco smoking status NHIS VA-TOBACCO USER EVERY DAY 08/23/2023 [facility] History of tobacco use VA-TOBACCO DOESNT USE WI 30 MIN WAKEUP 08/23/2023 [facility] Plan of Care List of future care activities from Department of Veterans Affairs facilities. Additional future care activities may be listed in the Assessment and Plan section. Date/Time Care Activity Care Activity Detail Facili ty 10/02/2024 AMBULATORY - MEDICINE AMBULATORY - MEDICI NE [facility]
--- NOTE | 2024-10-01 12:33 | P.HP_ITS ---
History of Present Illness History of Present Illness Consent: Risks, benefits, and alternatives have been discussed and questions answered. Patient agrees to proceed with procedure. Chief complaint: Right lower quadrant pain Narrative: Arjun Goodson is a 54 year old male with a history of PTSD, who presented to the ED today with complaints of right lower quadrant pain x 12 hours. Patient will go up from sleep around 12:30 last night with periumbilical pain. His pain was constant and by the morning had localized into the right lower quadrant. He reports associated nausea, but no vomiting. Denies fever, chills, diarrhea. Due to his persistent symptoms without any alleviating factors, he came into the ED for duration. [place] [id number]. [place] scan of the abdomen and pelvis showed acute uncomplicated appendicitis. No previous abdominal surgeries. He is now seen in the ED for surgical evaluation. Review of Systems Review of Systems: All systems reviewed & are unremarkable except as noted in HPI and below PMFSH Past Medical History Medical History EDGAR (obstructive sleep apnea) Tobacco abuse PTSD (post-traumatic stress disorder) Surgical History Surgical History History of surgery on arm injury to the left upper arm from a chainsaw resulting in surgery Social History Social History Smoking status: Never smoker Meds Home Medications and Allergies Home Medications ?Medication ?Instructions ?Recorded ?Confirmed ?Type gabapentin 300 mg capsule 300 mg PO DAILY 08/01/23 History Allergies Allergy/AdvReac Type Severity Reaction Status Date / Time No Known Allergies Allergy Mild Verified 10/01/24 07:43 Vital Signs Vital Signs - 24 hr 10/01/24 07:41 10/01/24 09:46 10/01/24 10:01 Temperature 97.3 F L Pulse Rate 69 63 79 Respiratory Rate 20 22 H 16 Blood Pressure 116/73 109/76 109/66 Pulse Oximetry 96 99 97 Oxygen Delivery Room Air Exam Const: General: comfortable and no acute distress Nutritional Appearance: average body habitus Orientation/consciousness: patient oriented x3 HENMT: Head: normocephalic and atraumatic Ears: hearing grossly normal bilaterally Mouth: Yes moist mucous membranes Eyes: General: appearance normal, both eyes and all related structures Pupils: Equal, round and reactive pupils present Neck: Neck: normal visual inspection and full ROM Resp: Effort & Inspection: no respiratory distress Auscultation: clear to auscultation bilaterally Cardio: Rate: regular rate Rhythm: regular rhythm Peripheral pulses: Peripheral pulses 2+ throughout GI: Inspection: non-distended and no scars GI Palp: Yes Soft to palpation, Yes Tenderness to palpation present (GI) ( right lower quadrant), Yes Guarding due to palpation present (GI) ( right lower quadrant), Yes No hepatosplenomegaly present and No Rebound tenderness present Auscultation: normal bowel sounds Rectal Exam: deferred Skin: General skin exam: normal color Neuro: General: moves all extremities and no focal motor deficits Speech: normal speech Motor exam (neuro): 5/5 motor strength present throughout Extrem: General: normal to inspection and no edema Psych: Mental Status: mental status grossly normal Attitude: cooperative Insight: Good insight present (Psych) Judgement: Good judgement present (Psych) Results Results Additional studies: ITS Impressions Abdomen/Pelvis CT 10/01/24 11:16 IMPRESSION: 1. Acute uncomplicated appendicitis. Assessment and Plan Assessment and plan (1) Acute appendicitis with localized peritonitis, without perforation or abscess: Code(s): K35.30 - Acute appendicitis with localized peritonitis, without perforation or gangrene Status: Acute Assessment and Plan: * Patient presents with RLQ pain x [address] scan showed evidence of acute uncomplicated appendicitis. No perforation or abscess evident on CT. We discussed both nonoperative treatment with IV antibiotics/monitoring versus proceeding with surgery. We discussed the details of a laparoscopic appendectomy, possible open, under general anesthesia that would be done by Dr. Knott. Description of the procedure, risks, benefits, alternatives, and expected recovery were discussed. He wishes to proceed with surgery. Will keep him NPO with IV fluids and start IV Zosyn preoperatively. Will proceed with urgent appendectomy today. (2) EDGAR (obstructive sleep apnea): Code(s): G47.33 - Obstructive sleep apnea (adult) (pediatric) Status: Acute (3) Tobacco abuse: Code(s): Z72.0 - Tobacco use Status: Acute Assessment and Plan: * Encouraged cessation Plan I have discussed the patient's case and plan of care with Dr. Knott.
[2024-10-01] MEDS: PIPERACILLIN/TAZOBACTAM SOD 3.375 GM in SODIUM CHLORIDE 0.9% IV 50 ML 100 ML IVPB ×3 (13:37→23:21)
[2024-10-01] MEDS: KETOROLAC 15 MG/ML VIAL (*BKC) IV PUSH (15:00)
--- NOTE | 2024-10-01 15:04 | P.PNAN_ITS ---
Anes - Initial Pre Proc Eval Procedure: Operation Date: 10/01/24 15:45 Proposed Procedures p Laparoscopic Appendectomy, Possible Open - Guillermo Knott MD Date/Time: 10/01/24 15:04 Surgeon: Guillermo Knott MD Pre Op Diagnosis: Right lower quadrant pain Patient Data Age: 54 Gender: M Height: 1.8 m Weight: 105.9 kg Last Vital Signs Temp 36.3 C L 10/01/24 07:41 Pulse 83 10/01/24 13:56 Resp 22 H 10/01/24 13:56 BP 106/63 10/01/24 13:01 Pulse Ox 97 10/01/24 13:56 O2 Del Method Room Air 10/01/24 07:41 Allergies Allergy/AdvReac Type Severity Reaction Status Date / Time No Known Allergies Allergy Mild Verified 10/01/24 07:43 Home Medications ?Medication ?Instructions ?Recorded ?Confirmed ?Type gabapentin 300 mg capsule 300 mg PO DAILY 08/01/23 History Laboratory Tests 10/01/24 10/01/24 10/01/24 08:56 09:11 09:50 WBC 13.8 H K/mm3 (4.5-10.0) RBC 4.72 M/mm3 (4.6-6.20) Hgb 15.3 g/dL (14.0-18.0) Hct 45.8 % (42.0-52.0) MCV 97.0 fl (80-100) MCH 32.4 pg (26-34) MCHC 33.4 g/dl (32-36) RDW 12.7 % (11.5-14.5) Plt Count 206 k/mm3 (150-375) MPV 8.9 fl (7.4-10.4) Immature Gran % (Auto) 0.3 % (0-0.5) Neut % (Auto) 86.1 H % (45.5-73.1) Lymph % (Auto) 5.7 L % (18.3-44.2) [place] % (Auto) 7.4 % (2.6-8.5) Eos % (Auto) 0.1 % (0-4.4) Baso % (Auto) 0.4 % (0.2-1.2) Lymph # (Auto) 0.79 L K/mm3 (0.9-3.2) [place] # (Auto) 1.0 H K/mm3 (0.1-0.6) Eos # (Auto) 0.0 K/mm3 (0-0.3) Baso # (Auto) 0.1 K/mm3 (0.0-0.1) Abs Immat Gran (auto) 0.04 H K/mm3 (0.00-0.031) Absolute Neuts (auto) 11.9 H K/mm3 (1.3-6.7) Absolute Nucleated RBC 0.000 K/mm3 (0.0-0.012) Nucleated RBC % 0.0 % (0.0-0.2) PT 12.6 Seconds (11.1-14.7) INR 0.9 Sodium Cancelled 135 L mmol/L (137-145) Potassium Cancelled 4.5 mmol/L (3.4-5.0) Chloride Cancelled 101 mmol/L (98-107) Carbon Dioxide Cancelled 24 mmol/L (22-30) Anion Gap Cancelled 10 mmol/L (4-12) BUN Cancelled 15 mg/dL (9-20) Creatinine Cancelled 1.04 mg/dL (0.7-1.3) Estim Creat Clear Calc Cancelled 87 ml/min Estimated GFR Cancelled > 60 (59 - ) Glucose Cancelled 116 H mg/dL (65-110) Calcium Cancelled 9.4 mg/dL (8.4-10.2) Total Bilirubin Cancelled 0.9 mg/dL (0.2-1.3) AST Cancelled 32 U/L (17-59) ALT Cancelled 21 U/L (6-50) Alkaline Phosphatase Cancelled 112 U/L (38-126) Total Protein Cancelled 8.1 g/dL (6.3-8.2) Albumin Cancelled 4.6 g/dL (3.5-5.1) Lipase Cancelled 43 U/L (23-300) Urine Color Yellow (Yellow) Urine Appearance Clear (Clear) Urine pH 5.5 (5.0-9.0) Ur Specific [place] 1.023 (1.001-1.035) Urine Protein Negative mg/dL (Negative) Urine Glucose (UA) Negative mg/dL (Negative) Urine Ketones 3+ H mg/dL (Negative) Ur Blood (Man) Negative (Negative) Urine Nitrate Negative (Negative) Urine Bilirubin Negative (Negative) Urine Urobilinogen 0.2 mg/dL (<2.0) Leukocyte Esterase Rfl Negative ALLEN/UL (Negative) Patient hx anesthesia problems: none Family hx anesthesia problems: none Results Review: All pre-operative results and documents have been reviewed as part of the pre- operative evaluation. [facility] Past Medical History Medical History EDGAR (obstructive sleep apnea) Tobacco abuse PTSD (post-traumatic stress disorder) Surgical History Surgical History History of surgery on arm injury to the left upper arm from a chainsaw resulting in surgery Social History Social History Smoking status: Never smoker Anes - Eval Final PreProcedure Day of Procedure 10/01/24 15:04 Patient weight: obese Heart: regular rate and rhythm Lungs: decreased breath sounds Airway: Mallampati scale class III Neurological: alert and oriented Last oral intake: >/= 8 hours ASA classification: III Emergent: yes Anesthetic plan: proceed Anesthesia type and monitoring: general ETT and standard monitoring Results Review: All pre-operative results and documents have been reviewed as part of the pre- operative evaluation. Informed Consent: The patient's anesthetic plan and its attendant risks and benefits were discussed with the patient/family/POA. Questions were solicited and answers provided to the satisfaction of the patient/family/POA.
[2024-10-01] MEDS: ACETAMINOPHEN 500 MG TABLET 1000 MG PO (15:11)
[2024-10-01] MEDS: BUPivacaine HCL 0.5% 10 ML AMP 30 ML INFILTRATE (16:39)
--- NOTE | 2024-10-01 17:22 | S_PTH ---
PATIENT: Arjun Goodson LOC: [id number] U#:[id number] AGE/SX: 54/M ROOM: 332 RE10/01/[address]: Guillermo Knott MD : [id number] BED: 02 DIS: 10/02/2024 SPEC #: [id number] RECD: 10/02/24 08:17 STATUS: DULCE REDion #: [id number] GINO: 10/01/24 17:[address]: Guillermo Knott DEPT: [facility] Surgical RECD BY: Vel Lopez ENTERED: 10/02/24 08:18 SP TYPE: Surgical OTHR DR: UNKNOWN,DOCTOR Tissues: A - Appendix Procedures: Hematoxylin and Eosin Stain Gross and Microscopic Level 3
[2024-10-01] MEDS: LIDO 1%/EPINEPHRINE 1:100,000 50 ML VIAL 30 ML INFILTRATE (17:32)
[2024-10-01] MEDS: LACTATED RINGERS 1,000 ML 30 ML IV CONT ×2 (17:59→18:00)
--- NOTE | 2024-10-01 18:17 | P.OP_ITS ---
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 Had a leukocytosis and CT scan abdomen pelvis showed a dilated non perforated inflamed appendix. He presents now for an urgent laparoscopic appendectomy. Findings Patient had a inflamed non perforated appendix which was certainly inflamed throughout most of its length. The base of the appendix however was relatively normal-appearing and certainly viable. No periappendiceal abscess was seen although there was inflammation of the periappendiceal fatty tissue. Description of Procedure After informed consent was obtained patient brought to the operating room was placed supine position and general endotracheal anesthesia was administered. A Wolff catheter was placed decompress the bladder and then the abdomen is then prepped and draped usual sterile fashion. A time-out was then performed correctly identifying the patient as well as procedure to be performed. He was given another dose of Zosyn for IV antibiotics. I then entered the abdomen left upper quadrant utilizing a 5mm Optiview port. Once inside the abdomen insufflated to adequate pneumoperitoneum of 15mmHg of CO2. I then surveyed the abdomen and there were no adhesions to obscure my view of the right lower quadrant. I then placed a 5mm suprapubic trocar port as well as a 12mm periumbilical trocar port and another 5mm right lower quadrant trocar port all under direct visualization. Switching laparoscopic over and working through these 3 ports I was able to identify the appendix lateral to the cecum. There there certainly was inflammation of the periappendiceal fatty tissue but no evidence of abscess and no evidence of perforation of the appendix. The base of the appendix appeared to be relatively normal certainly viable. The majority appendix however did appear inflamed. There is no gangrene of the appendix. Utilizing laparoscopic graspers I was able to elevate the base of the appendix and then bluntly dissect the appendix off of the retroperitoneum utilizing the tip of the cutting and boning supervisor device. Once I had the whole length of the appendix exposed I then proceeded to make a defect through the mesoappendix just at the base with a laparoscopic dissected. I then used a 45mm Endo-REHAN stapler to divide the appendix flush with the cecum. Multiple vascular reload to the 45mm Endo-REHAN stapler was then used to divide the mesoappendix. The appendix was then placed into an Endo-Catch bag and brought out through the periumbilical trocar port site. It was passed off table sent to pathology for examination. I then irrigated out the right lower quadrant the abdomen the gallbladder fossa copious amounts sterile saline solution. Hemostasis was excellent. No bleeding from the staple lines. I then aspirated the fluid from the right lower quadrant the abdomen the from the pelvis. I then removed all the trocar ports under direct visualization and all port sites appeared hemostatic. The abdomen was then allowed to decompress. The 12mm periumbilical trocar port fascial defect was then closed at the fascial level utilizing 0 Vicryl suture. The ports were then irrigated with sterile saline solution hemostasis was good. I then closed all the port sites at the skin level utilizing a running subcuticular 4-0 Monocryl suture. The incisions were then cleaned the skin glue sterile dressings were applied. The patient tolerated the procedure well no complications. All sponges, needles, and instrument counts were correct at the end procedure. EBL was _20__cc. The patient was awakened and taken to recovery in stable and satisfactory condition. Implants None Estimated Blood Loss 20 Drains No Packing No Pathology Yes (Appendix sent to pathology) Complications No immediate complications Condition Stable Disposition PACU [facility] Billing Surgery - Charge Forward: Surgery Billing
--- NOTE | 2024-10-01 20:46 | ADMGEN ---
This patient, Arjun Goodson, was admitted to [facility] Surg Room 332-01. Patient/family oriented to hospital policies and general routines including ID bracelet, bed and alarms, visiting hours, pain management, procedures, bathroom and other care routines, personal items, smoking policy, room service/diet, and visiting hours. Information on how to activate the Rapid Response Team has been discussed. Patient/Family are encouraged to report perceived risks to care and to ask questions if they do not understand what they are told or what they should do.
[2024-10-01] MEDS: LACTATED RINGERS 1,000 ML 100 ML IV CONT (21:29)
[2024-10-02 02:00] VITALS: BP 104/60; PULSE 54; RESP 18; TEMP 35.8; O2SAT 98
[2024-10-02 06:00] VITALS: BP 120/70; PULSE 85; RESP 20; TEMP 35.7; O2SAT 99
[2024-10-02] MEDS: LACTATED RINGERS 1,000 ML 100 ML IV CONT (08:44)
[2024-10-02] MEDS: GABAPENTIN 300 MG CAPSULE PO (08:45)
--- NOTE | 2024-10-02 10:50 | P.DS_ITS ---
DS: Admitting Diagnosis Discharge Date 10/02/2024 Admitting Diagnosis Acute uncomplicated appendicitis EDGAR Tobacco abuse DS: Discharge Diagnosis Discharge Diagnosis (1) Acute appendicitis with localized peritonitis, without perforation or abscess: Qualifiers: Appendicitis gangrene presence: without gangrene Qualified Code(s): K35.30 - Acute appendicitis with localized peritonitis, without perforation or gangrene Code(s): K35.30 - Acute appendicitis with localized peritonitis, without perforation or gangrene Status: Acute (2) EDGAR (obstructive sleep apnea): Code(s): G47.33 - Obstructive sleep apnea (adult) (pediatric) Status: Acute (3) Tobacco abuse: Code(s): Z72.0 - Tobacco use Status: Acute DS: Summary Hospital Course Reason for hospitalization: Arjun Goodson is a 54 year old male who presented to the ED today with complaints of right lower quadrant pain x 12 hours. Workup in the ED showed leukocytosis and CT evidence of acute uncomplicated appendicitis. He was admitted in the setting. Hospital Course: The patient was started on broad-spectrum IV antibiotics and taken to the OR on 10/01/2024 for laparoscopic appendectomy by Dr. Diaz. No evidence of perforation or abscess during surgery, which was straightforward. Diet was advanced as tolerated after recovery. He is tolerating activity. He is t olerating his diet without any nausea or vomiting. Incisional pain is minimal and well controlled. He is stable for discharge today. Will have him follow-up in [address] Diaz. Time spent discussing smoking cessation with patient: 3 to 10 minutes Status at Discharge Functional status at discharge: independent ambulation Overall status at discharge: patient is progressing back to baseline Time Spent with Patient Time attestation: Total time spent providing and/or coordinating discharge services: Time spent: Greater than 30 minutes Exam Const: General: comfortable and no acute distress GI: Inspection: non-distended and incision (incisions dry and intact) GI Palp: Yes Soft to palpation, Yes Tenderness to palpation present (GI) (incisional) and No Guarding due to palpation present (GI) Auscultation: normal bowel sounds Neuro: General: moves all extremities and no focal motor deficits Extrem: General: no calf tenderness and no edema Psych: Mental Status: mental status grossly normal Insight: Good insight present (Psych) DS: Data Data Completed and Pending Pending studies at discharge: Pending at discharge 10/01/24 17:22 Surgical [PTH] Routine Labs on day of discharge: Labs from last 24 hours 10/01/24 08:56 PT 12.6 INR 0.9 Procedures/Treatments: Procedures Operation Date: 10/01/24 15:45 Actual Procedure Side Surgeon p Laparoscopic Appendectomy Not Applicable Guillermo Diaz MD Imaging Radiologist's impression: ITS Impressions Abdomen/Pelvis CT 10/01/24 11:16 IMPRESSION: 1. Acute uncomplicated appendicitis. Discharge Plan Discharge Attending physician on discharge: Guillermo Diaz Discharging Clinician: Anastacia Mccabe Anticipated Discharge Date/Time: 10/02/24 10:45 Patient Disposition: Home Activity: may shower and other - see discharge instructions Diet: as tolerated and regular Wound Care Instructions: incision open to air Discharge Instructions: DISCHARGE INSTRUCTION SHEET FOR HERNIA, GALLBLADDER AND APPENDIX SURGERIES DR. DIAZ 1. May shower in 24 hours, no soaking in bath x 2weeks. 2. Call office for: * Wound increasingly painful or bleeding * Vomiting * Fever of greater than 101 degrees 3. If no bowel movement for three days, take 1 oz. (30 ml) Milk of Magnesia or MiraLax 17g 1 to 2 times daily. 4. No heavy lifting > 10-15 pounds x 2 weeks for laparoscopic cholecystectomy or appendectomy. 5. No driving for 3 days or while taking narcotic pain medications. 6. Ice to surgical site for 48 hours (30 min on, then 30 min off). 7. Up walking 10-30 minutes three times per day. 8. Resume previous home medications. 9. Call the office to schedule a follow-up appointment with Dr. Diaz in 2 weeks. ([phone]) 10. Oral pain medications prescription sent to pharmacy electronically.. Take Tylenol 500mg every 6 hours and Ibuprofen 600mg every 6 hours for the first 2 days, then as needed. Patient Instructions: Antibiotic Form Patient Language: Turkmen Stand Alone Forms: General Discharge Instructions, Work/School Release IP Follow-up/Referrals: UNKNOWN,DOCTOR [Primary Care Provider] - Guillermo Diaz MD [Physician] - 2 Weeks Discharge Medications: New hydrocodone-acetaminophen 5-325 mg Tablet 1 tablet PO Q6H PRN (Reason: Pain Rated 4-6) Qty: 7 0RF Continued gabapentin 300 mg capsule 300 mg PO DAILY ferrous sulfate [FeroSul] 325 mg (65 mg iron) tablet 325 mg PO 2XW Rx Instructions: MONDAYS AND FRIDAYS fluticasone propionate 50 mcg/actuation spray,suspension 1 spray INTRANASAL DAILY prazosin 1 mg capsule 1 mg PO HS Date of admission: 10/01/24 19:07 Primary Care Provider: UNKNOWN,DOCTOR Admitting Provider: Guillermo Diaz Attending physician on admission: Guillermo Diaz Condition: Stable Quality VTE Prophylaxis VTE prophylaxis: mechanical ordered If No VTE Prophylaxis Answer both mechanical and pharmacologic: Reason no pharmacologic proph: low risk/not indicated (Patient had surgery)
== END 2024-10-02 11:25 | disposition home or self-care (01) ==
LOC: ANHED 12:10 → ANHSURGERY 12:24 → ANH3MEDSUR 20:15
PROVIDERS: Admitting Provider Surgery; Emergency Provider Family Medicine; Visit Provider Surgery
PROC: 0DTJ4ZZ Resection of Appendix, Percutaneous Endoscopic Approach (ICD-10-PCS; CPT 44970; principal; 2024-10-01 15:45)
DX: K35.30 Acute appendicitis with localized peritonitis, without perforation or gangrene (principal); F43.12 Post-traumatic stress disorder, chronic; G47.33 Obstructive sleep apnea (adult) (pediatric); Z72.0 Tobacco use
CPT/HCPCS: 44970; 36415; 74177; 80053; 81003; 83690; 85025; 85610; 88304; 94660; 96361; 96365; 96366; 96375; 96376; 99285; A9270; G0378; J1100; J1885; J2003; J2004; J2250; J2270; J2371; J2405; J2543; J2704; J3010; J7030; J7120; Q9967